=== PATIENT | female | born 1955 | race Caucasian/White ===

== ENCOUNTER → 2016-12-22 | Outpatient (CLI) | payer OTHER ==
[~2016-12-22] MED LIST: ALFA250T PO; ASPEC81 PO; ATV/1 PO; B-COTAB18 PO; CRG3125 PO; DIPH-437 PO; ESTR0.3T PO; FERR1TAB23 PO; LISI-729 PO; SERT100T PO; SUMA100T16 PO
== END | disposition home or self-care (01) ==
LOC: C.RDSM 10:11
PROVIDERS: ATTEND Orthopaedic Surgery Sports Medicine
DX: M79.671 Pain in right foot (principal)

== ENCOUNTER → 2017-03-25 | Day surgery (SDC) | payer OTHER ==
[2017-03-09 09:45] VITALS: Ht 167.6 cm; Wt 77.3 kg
[~2017-03-25] VITALS: Ht 167.6 cm; Wt 77.3 kg
[~2017-03-25] MED LIST changes: +ASPCH81X PO; -ASPEC81 PO; +ATROPINE SULFATE 0.1 MG/ML 5ML SYR IV PRN; +BUPIVACAINE 0.5 % 5 MG/1 ML MPF 30ML VIAL ONE; +CARV3.122 PO; +CEFAZOLIN 1000MG IV PUSH 5 ML IV SCH; +CHECK SCOPOLAMINE PATCH PLACEMENT SCH; -CRG3125 PO; +DEXAMETHASONE SOD INJ 4 MG/ML VIAL ONE; +EpHEDrine SULFATE INJ 50 MG/ML AMP IV PRN; +FENTANYL CITRATE INJ 50 MCG/1 ML 2 ML VIAL ONE; -FERR1TAB23 PO; +LACTATED RINGER'S 1000ML 1,000 ML IV SCH; +LIDOCAINE HCL 2% 2 ML VIAL (20MG/ML) ONE; +LIDOCAINE/EPINEPHRINE 1% 20 ML VIAL ONE; +MIDAZOLAM HCL 1 MG/ML 2ML VIAL ONE; +MoRPHine SULFATE 2 MG/ML CARP IV PRN; +MoRPHine SULFATE 4 MG/ML 1 ML CARP\\VIAL IV PRN; +NURSING VERBAL MED ORDER ONE; +ONDANSETRON INJ 2 MG/ML 2 ML VIAL IV PRN; +ONDANSETRON INJ 2 MG/ML 2 ML VIAL ONE; +OXYCODONE/ACETAMINOPHEN 5-325 TAB PO PRN; +PHENYLEPHRINE HCL INJ 10 MG/ML VIAL ONE; +PROPOFOL IV EMULSION 10 MG/ML 20 ML VIAL IV ONE; +SCOPOLAMINE 1.5 MG TDSY TD ONE; +SERT-234 PO; -SERT100T PO; +[UNRECOGNIZED DRUG - OTHER] PO
--- NOTE | 2017-03-25 07:00 | History & Physical Bridge - SC ---
H&P Re-Evaluation Bridge Note: I have examined the patient, reviewed the History & Physical and in the interval since the performance of the History & Physical I have noted the following changes of clinical significance: No changes noted
--- NOTE | 2017-03-25 09:54 | [facility] Post Operative Brief Note ---
Immediate Operative Summary Operative Date Mar 25, 2017. Pre-Operative Diagnosis Right Foot Bunion Post-Operative Diagnosis Same Procedure(s) Performed Right Foot Bunion Correction Surgeon Dr. Kaufman Distribution Operations Supervisor Surgeon(s) Antonio Gallardo, Fellow Estimated Blood Loss 15 ml Findings Consistent with Post-Op Diagnosis Fluids (cc crystalloids) 1500 Specimens None Drains None Anesthesia Type General Disposition Disposition: Recovery Room / PACU
--- NOTE | 2017-03-25 09:59 | Discharge Instructions-SurgCtr ---
Discharge Instructions Date of Service Mar 25, 2017. Visit Reason for Visit: Right Foot Bunion Discharge Discharge Diagnosis / Problem: Status post right bunion correction Discharge Goals Goal(s): Decrease discomfort, Improve function Activity Recommendations Activity Limitations: per Instructions/Follow-up section May Resume Sexual Activity: when tolerated Shower/Bathe: may shower/bathe in 3 days Driving or Machine Use: Not while on narcotics or in boot Weightbearing Status: Right weightbearing (as tolerated through heel) Anesthesia . Post Anesthesia Instructions: If you have had General Anesthesia or IV Sedation: * Do not drive today. * Resume driving when surgeon permits. * Do not make important decisions or sign legal documents today. * Call surgeon for: 1. Temperature elevations greater than 101 degrees F. 2. Uncontrollable pain. 3. Excessive bleeding. 4. Persistent nausea and vomiting. 5. Medication intolerance (nausea, vomiting or rash). * For nausea and vomiting use only clear liquids such as: tea, soda, bouillon until nausea subsides, then gradually increase diet as tolerated. * If you have any concerns or questions, call your surgeon's office. If physician is unavailable and it is an emergency, call 911 or go to the nearest emergency room. . Instructions / Follow-Up Instructions / Follow-Up Dr. Kaufman in 10-15 days. PT on 03/29/17. Diet Recommendations Home Diet: resume previous diet Procedures Procedures Performed: Right Foot Bunion Correction Pending Studies Studies pending at discharge: no Medical Emergencies . Who to Call and When: Medical Emergencies: If at any time you feel your situation is an emergency, please call 911 immediately. . Non-Emergent Contact Non-Emergency issues call your: Surgeon Call Non-Emergent contact if: temperature is above 101.5, your pain is not controlled, wound has increased drainage, wound has increased redness . . "Provider Documentation" section prepared by Howard Kaufman. .
--- NOTE | 2017-03-25 10:01 | [facility] Operative Report ---
Operative Report Operative Date Mar 25, 2017. Pre-Operative Diagnosis Right Foot Bunion Post-Operative Diagnosis Same Procedure(s) Performed Right Foot Bunion Correction Surgeon Dr. Kaufman Forms Examiner Surgeon(s) Antonio Gallardo, Fellow Estimated Blood Loss 15 ml Findings Right great toe bunion deformity with large medial eminence. Hallux valgus angle 34, intermetatarsal angle 12. Fluids (cc crystalloids) 1500 Specimens None Drains n/a Anesthesia Gen Complication(s) None Disposition Recovery Room / PACU (Stable) Implants Othosorb pin 1.3 mm (Biomet) Indications The patient is a 61 year old female with a painful and deformed right great toe , that has failed conservative treatment and the patient wishes to proceed with surgical correction of her bunion deformity. The patient understands the risks of surgery, which include but are not limited to: bleeding, infection, re- operation, damage to nerves and arteries, continued pain, mal-union, non-union, decreased level of activity, DVT, recurrence, and stiffness. The patient understands all of these instructions and explanations, all of their questions have been satisfactorily addressed. The patient has elected to proceed with surgery and the informed consent was signed. Description of Procedure The patient was taken to the Operating Room and placed in the supine position on the operating table. After general anesthetic was administered a multidisciplinary time-out was performed identifying my initials on the right foot as the correct and operative limb. Prior to the incision being made, 1 gram of intravenous Ancef was given. The right lower extremity was prepped and draped in the usual orthopaedic sterile fashion. The planned dorsal and medial incisions were marked. They along with an ankle block (superficial peroneal nerve, deep peroneal nerve, and posterior tibial nerves) were then injected with a total of 25 cc of a 50:50 mix of 1% Lidocaine plain and 0.5% Bupivacaine plain. An Esmarch was used to exsanguinate the limb and used as a tourniquet at the ankle. The medial incision was centered over the first metatarsal joint approximately 5 cm in length. The incision was carried down to the capsule and then skin flaps were created volarly and dorsally. A medial capsular flap was created exposing the medial eminence. Using a power saw the medial eminence was removed at an angle parallel to the medial border of the foot in the standard fashion. A 2 mm drill bit was used to archie the apex of the planned Chevron osteotomy which was created at approximately 60 angle with the power saw, small osteotome was used to complete the osteotomy lateral cortex. Using a towel clip on the main fragment, the distal part of the Chev[employer] osteotomy was displaced medially approximately 4 mm and impacted into the proximal fragment. Fluoroscopy was brought into ensure adequate removal of the medial eminence and proper alignment of the Chevron osteotomy. It was then pinned in place with 2 Orthosorb pins in the standard fashion. The remaining excess medial eminence after displacing the Chevron osteotomy was Co-planed with power saw and rasp. At this point, the lateral sesamoid still appear to be displaced and it was decided to continue with the lateral soft tissue portion of the procedure and the Dorsal incision was created with a skin knife. Care was taken to protect the deep peroneal nerve throughout. The abductor Hallucis was was identified and released off the proximal phalanx in the standard fashion. The deep transverse metatarsal ligament was also incised. The lateral capsule was released. Any adhesions on the lateral sesamoid were released with a freer. The wounds were copiously irrigated. The medial capsule was imbricated with 2-0 FiberWire and any excessive capsule was excised. Final fluro images were obtained, showing excellent alignment of the first metatarsal and removal of the medial eminence. The skin was closed with 4-0 Nylon using horizontal mattress stitch. The wound was dressed with Xeroform gauze, sterile gauze, supportive cleaning, ABD, sterile Webril, LAURE, and a post-op shoe was placed. The sponge and needle counts were correct. The patient was taken to the recovery room in stable condition. Post-op Instructions: Patient will be WBAT through the heel for 6 weeks. Pain medicine prescription was given pre-operatively to be taken as needed. The patient will follow up with me in 10-15 days. I attest to the content of the Intraoperative Record and any orders documented therein. Any exceptions are noted below.
[2017-03-25] MEDS: FENTANYL CITRATE INJ 50 MCG/1 ML 2 ML VIAL IV PRN ×2 (10:28→10:36)
--- NOTE | 2017-03-25 11:17 | Anesthesia Progress Nt - [facility] ---
Anesthesia Post Op Note Date & Time Mar 25, 2017 at 11:16 Vital Signs Pain Intensity: 4 Vital Signs Past 12 Hours Date Time Temp Pulse Resp B/P (MAP) Pulse Ox O2 Delivery O2 Flow Rate FiO2 03/25/17 11:05 113/77 03/25/17 11:03 36.8 76 19 113/77 95 Room Air 03/25/17 11:01 81 14 03/25/17 11:01 80 14 98/63 96 03/25/17 10:56 79 20 98 03/25/17 10:56 79 20 03/25/17 10:55 115/69 03/25/17 10:51 76 10 03/25/17 10:51 75 10 99 03/25/17 10:50 114/70 03/25/17 10:46 75 14 03/25/17 10:46 75 14 99 03/25/17 10:45 119/67 03/25/17 10:41 83 17 03/25/17 10:41 83 17 97 03/25/17 10:40 113/68 03/25/17 10:36 80 14 03/25/17 10:36 81 14 108/67 98 03/25/17 10:31 76 9 03/25/17 10:31 78 9 99 03/25/17 10:30 120/69 18 10:26 79 14 99 03/25/17 10:26 79 14 03/25/17 10:25 113/72 03/25/17 10:21 80 16 98 03/25/17 10:21 80 16 03/25/17 10:20 115/73 03/25/17 10:16 79 10 03/25/17 10:16 79 10 98 18 10:15 119/69 03/25/17 10:11 80 12 99 18 10:11 80 12 18 10:10 109/68 18 10:06 76 16 18 10:06 83 16 96 18 10:05 105/67 18 10:02 111/68 18 10:01 82 98 03/25/17 10:01 36.4 82 14 111/68 98 Mask 6 03/25/17 10:01 82 03/25/17 06:30 36.8 77 16 96/70 (79) 96 Room Air Notes Mental Status: alert / awake / arousable, participated in evaluation Pt Amnestic to Procedure: Yes Nausea / Vomiting: adequately controlled Pain: adequately controlled Airway Patency, RR, SpO2: stable & adequate BP & HR: stable & adequate Hydration State: stable & adequate Anesthetic Complications: no major complications apparent
[2017-03-25 12:07] VITALS: BP 116/66; PULSE 72; O2SAT 93
== END | disposition home or self-care (01) ==
LOC: X.SURG 06:09
PROVIDERS: ATTEND Orthopaedic Surgery Sports Medicine
DX: M21.611 Bunion of right foot (principal); F41.9 Anxiety disorder, unspecified; F31.9 Bipolar disorder, unspecified; Z85.41 Personal history of malignant neoplasm of cervix uteri; Z79.899 Other long term (current) drug therapy; Z79.82 Long term (current) use of aspirin; Z83.3 Family history of diabetes mellitus; Z80.0 Family history of malignant neoplasm of digestive organs; Z82.3 Family history of stroke

== ENCOUNTER → 2017-05-05 | Outpatient (CLI) | payer OTHER ==
[~2017-05-05] MED LIST changes: -ATROPINE SULFATE 0.1 MG/ML 5ML SYR IV PRN; -BUPIVACAINE 0.5 % 5 MG/1 ML MPF 30ML VIAL ONE; -CEFAZOLIN 1000MG IV PUSH 5 ML IV SCH; -CHECK SCOPOLAMINE PATCH PLACEMENT SCH; -DEXAMETHASONE SOD INJ 4 MG/ML VIAL ONE; -EpHEDrine SULFATE INJ 50 MG/ML AMP IV PRN; -FENTANYL CITRATE INJ 50 MCG/1 ML 2 ML VIAL ONE; -LACTATED RINGER'S 1000ML 1,000 ML IV SCH; -LIDOCAINE HCL 2% 2 ML VIAL (20MG/ML) ONE; -LIDOCAINE/EPINEPHRINE 1% 20 ML VIAL ONE; -MIDAZOLAM HCL 1 MG/ML 2ML VIAL ONE; -MoRPHine SULFATE 2 MG/ML CARP IV PRN; -MoRPHine SULFATE 4 MG/ML 1 ML CARP\\VIAL IV PRN; -NURSING VERBAL MED ORDER ONE; -ONDANSETRON INJ 2 MG/ML 2 ML VIAL IV PRN; -ONDANSETRON INJ 2 MG/ML 2 ML VIAL ONE; -OXYCODONE/ACETAMINOPHEN 5-325 TAB PO PRN; -PHENYLEPHRINE HCL INJ 10 MG/ML VIAL ONE; -PROPOFOL IV EMULSION 10 MG/ML 20 ML VIAL IV ONE; -SCOPOLAMINE 1.5 MG TDSY TD ONE
== END | disposition home or self-care (01) ==
LOC: C.RDSM 13:55
PROVIDERS: ATTEND Orthopaedic Surgery Sports Medicine
DX: Z09 Encounter for follow-up examination after completed treatment for conditions other than malignant neoplasm (principal)

== ENCOUNTER 2020-02-25 12:03 | Observation (INO) ==
[2020-02-25 12:53] LABS: Basophils # (auto) 0.04 K/uL (0-0.2); Basophils % (auto) 0.4 %; Eosinophils # (auto) 0.03 K/uL (0-0.5); Eosinophils % (auto) 0.3 %; Hematocrit (blood only) 36.8 % (37-47); Immature Granulocytes # (auto) 0.02 K/uL (0.00-0.02); Immature Granulocytes % (auto) 0.2 %; Lymphocytes # (auto) 0.82 K/uL (1.2-3.4); Lymphocytes % (auto) 7.2 %; Mean Corpuscular Hemoglobin 30.5 pg (25-34); Mean Corpuscular Hgb Conc 32.6 g/dL (32-36); Mean Corpuscular Volume 93.4 fL (80-100); Monocytes # (auto) 0.92 K/uL (0.11-0.59); Monocytes % (auto) 8.1 %; Neutrophils # (auto) 9.53 K/uL (1.4-6.5); Neutrophils % (auto) 83.8 %; Platelet Count 225 K/uL (130-400); RDW Coefficient of Variation 14.4 % (11.5-14.5); RDW Standard Deviation 49.4 fL (36.4-46.3); Red Blood Count 3.94 M/uL (4.2-5.4); White Blood Count 11.36 K/uL (4.8-10.8)
[2020-02-25 13:11] LABS: Alanine Aminotransferase 33 U/L (12-78); Albumin Level 3.5 gm/dl (3.4-5.0); Aspartate Aminotransferase 18 U/L (15-37); Blood Urea Nitrogen 14 mg/dl (7-18); Calcium 8.6 mg/dl (8.5-10.1); Carbon Dioxide 23 mmol/L (21-32); Chloride 111 mmol/L (98-107); Creatinine Clr Calc Pharmacy 59.8 ml/min; Est GFR (Non-African American) 54.4; Glucose 125 mg/dl (70-99); Potassium 4.1 mmol/L (3.5-5.1); Sodium 142 mmol/L (136-145)
[2020-02-25 13:15] LABS: Albumin Globulin Ratio 1.2 (0.9-2); Alkaline Phosphatase 77 U/L (45-117); Bilirubin,Total 0.7 mg/dl (0.2-1); Globulin 2.9 gm/dl (2.5-4.0); Total Protein 6.4 gm/dl (6.4-8.2); Troponin I < 0.015 ng/ml (0-0.045)
[2020-02-25 13:23] LABS: INR 1.1 (0.9-1.1); Partial Thromboplastin Ratio 0.9; Prothrombin Time 11.1 Seconds (9.0-12.0)
--- NOTE | 2020-02-25 14:32 | XRay Report ---
SINGLE VIEW CHEST CLINICAL HISTORY: Cough. Atypical chest pain. FINDINGS: An AP, portable, upright chest radiograph is compared to study dated 03/21/2014. The heart i s enlarged noting atherosclerotic calcification of the thoracic aorta. There is pulmonary vascular co ngestion. Perihilar opacities likely represent interstitial edema. Small pleural effusions are noted. No pneumothorax is seen. The skeletal structures are osteopenic. The bony thorax is grossly intact. IMPRESSION: 1. Cardiomegaly with evidence of congestive failure. 2. Perihilar airspace opacities likely represent pulmonary edema. Correlate clinically for evidence o f a superimposed infectious/inflammatory pneumonitis. 3. Small pleural effusions. ACT 112: Negative or not required by law. Electronically signed by: Lisandro Hopper M.D. 02/25/2020 2:31 PM
[2020-02-25 14:44] LABS: Creatine Kinase 70 U/L (26-192); Creatine Kinase MB < 1.0 ng/ml (0.5-3.6); NT Pro B Type Natriuretic Pept 22260 pg/ml (0-900); Troponin I 0.016 ng/ml (0-0.045)
[2020-02-25] MEDS ORDERED: METOPROLOL TARTRATE 25 MG TAB PO STA (15:03)
[2020-02-25] MEDS ORDERED: FUROSEMIDE 40 MG/4 ML VIAL IV STA (15:03)
[2020-02-25] MEDS ORDERED: FUROSEMIDE 40 MG/4 ML VIAL IV ONE (15:06)
--- NOTE | 2020-02-25 15:10 | Cardiology Consultation ---
Date of Consultation February 25, 2020 Assessment & Plan (1) Acute HFrEF (heart failure with reduced ejection fraction): (2) Frequent PVCs: A TSH has been added to the patient's ED labs. Furosemide 40 mg IV x 1 STAT ordered in ED (discussed with ED nurse). DC VALUATION MANAGER well, transition to metoprolol. Start metoprolol tartrate, while dose is being determined. First dose now. May need to consider antiarrhythmic treatment with amiodarone. Recommend blood work for cardiomyopathy including serum and urine protein electrophoresis, JORGE screen, iron studies. Hold lisinopril for now given cough, although I believe the cough is likely due to her pulmonary congestion/volume overload. Future considerations include getting her back on lisinopril tomorrow or perhaps transitioning her to losartan. Continue aspirin. History of Present Illness History of Present Illness Niurka Morris is a 64-year-old female seen in cardiology consultation per the request of Dr. Willem Salazar of the emergency department for the evaluation of chest tightness and shortness of breath. The patient's primary oil and gas well treatment operator is Dr. Lopez of our practice. The patient's cardiac history dates back to November, when she presented to her PCP and then to Dr Ng of [facility] cardiology with subjective complaints of palpitations. She was found to have cardiomyopathy with ejection fraction in the range of 25 to 35%. Medication therapy including carvedilol was initiated and on 05/07/2010 she underwent cardiac catheterization performed by Dr. Lees at [facility] revealing angiographically normal coronary arteries per the procedure report. A Holter monitor was performed on 06/04/2010 revealing frequent premature ventricular contractions, 17,000 and what I presume was a 24-hour interval. She responded well to medication, and echocardiogram performed on 05/05/2018 and revealed LVEF of 52%. In January, she noted onset of recurrence of her subjective palpitations. She was seen by Dr. Lopez and her carvedilol was increased to 6.25 mg twice daily with a subjective interval improvement in the palpitations. Echocardiogram performed 01/23/2020 at [facility] revealed new moderate left ventricular chamber dilatation, with severe left ventricular systolic dysfunction, LVEF less than 20% with moderate to severe mitral regurgitation (dilatation of the mitral valve annulus noted, moderate to severe tricuspid regurgitation, biatrial enlargement. Frequent PVCs were noted. The patient has noted progressive worsening exertional shortness of breath, cough, and weight gain. On 01/15/2019, she weighed 178 pounds in the cardiology clinic, most recently she weighed 196 pounds. This morning she awoke with severe "vice like "chest tightness" prompting her to present to the emergency department. At the time of my assessment, a COVID-19 screen was negative, troponin was negative x1, her proBNP was elevated, and chest x-ray findings are consistent with congestive heart failure and enlargement of the cardiac silhouette. She described that sitting straight up she felt the best that she could, and she states that with trying to lie supine she felt "suffocated". PAST MEDICAL HISTORY: Bipolar 1 disorder Major depressive disorder Stage III chronic kidney disease Migraine headaches Premature ventricular contractions, nonischemic idiopathic cardiomyopathy Patient underwent remote hysterectomy and has been on long-term Premarin hormone replacement therapy for more than 20 years, she has been weaning herself from this medication, and typically takes a 0.3 mg tablet once every 4 to 5 days PAST SURGICAL HISTORY: Angiographically normal coronary arteries, 2010 Remote hysterectomy age 22 Laparoscopic cholecystectomy, 2014 Fixation of left ankle fracture, residual left ankle edema FAMILY HISTORY: Mother alive at the age of 84, with history of coronary heart disease, CABG x2 in her 70s Father, 15 years ago at the age of 74, with history of diabetes and congestive heart failure, "scar tissue "of the heart, details otherwise not available Patient'S siblings have no known heart disease SOCIAL HISTORY: Non-smoker Allergies Allergy/AdvReac Type Severity Reaction Status Date / Time Sulfa (Sulfonamide Allergy Intermediate HIVES Verified 02/25/20 14:00 Antibiotics) Home Medications Medication Instructions Recorded Confirmed Type aspirin [Aspir-81] 81 mg PO DAILY 02/25/20 02/25/20 History carvedilol 6.25 mg PO BID 02/25/20 02/25/20 History conjugated estrogens [Premarin] 0.3 mg PO Q4D 02/25/20 02/25/20 History lisinopril 5 mg PO BID 02/25/20 02/25/20 History lorazepam 1 mg PO TID PRN 02/25/20 02/25/20 History ondansetron 4 mg PO Q6H 02/25/20 02/25/20 History sertraline 200 mg PO DAILY 02/25/20 02/25/20 History sumatriptan succinate 100 mg PO UD PRN 02/25/20 02/25/20 History valacyclovir 1,000 mg PO TID 02/25/20 02/25/20 History vitamin B complex [B Complex] 1 cap PO DAILY 02/25/20 02/25/20 History Patient History Social History Smoking Status: Never smoker Feels Safe at Home: Yes Physical Exam Physical Exam: Temp Pulse Resp BP Pulse Ox 36.8 C 101 H 23 115/84 96 02/25/20 12:11 02/25/20 15:10 02/25/20 15:10 02/25/20 14:17 02/25/20 14:17 Constitutional: Ill, uncomfortable Respiratory: Auscultation: + rales (Rales noted bilaterally at the bases) Cardiovascular: Rate/Rhythm: + tachycardic Heart Sounds: + murmur (1/6 systolic murmur) Gastrointestinal (Abdomen): normal bowel sounds, soft, nontender, no hepatosplenomegaly Musculoskeletal: no cyanosis or clubbing, extremities motor strength 5/5 Neurologic: PERRL, EOMI, accommodation nl, no face palsy, no dysarthria Results & Data ([facility]) Vital Signs (Past 12 Hours) Vital Signs Temp Pulse Resp BP Pulse Ox 02/25/20 14:17 88 27 H 115/84 96 02/25/20 12:11 36.8 C 105 H 18 113/51 L 97 Laboratory Results Cardiac Enzymes 02/25/20 02/25/20 Range/Units 12:40 14:15 AST 18 (15-37) U/L CK-MB (CK-2) < 1.0 (0.5-3.6) ng/ml Troponin I < 0.015 0.016 (0-0.045) ng/ml Coagulation 02/25/20 Range/Units 12:40 PT 11.1 (9.0-12.0) Seconds APTT 25.0 (21.0-31.0) Seconds CBC 02/25/20 Range/Units 12:40 WBC 11.36 H (4.8-10.8) K/uL RBC 3.94 L (4.2-5.4) M/uL Hgb 12.0 (12.0-16.0) g/dL Hct 36.8 L (37-47) % Plt Count 225 (130-400) K/uL Neut # (Auto) 9.53 H (1.4-6.5) K/uL Lymph # (Auto) 0.82 L (1.2-3.4) K/uL [place] # (Auto) 0.92 H (0.11-0.59) K/uL Eos # (Auto) 0.03 (0-0.5) K/uL Baso # (Auto) 0.04 (0-0.2) K/uL Comprehensive Metabolic Panel 02/25/20 Range/Units 12:40 Sodium 142 (136-145) mmol/L Potassium 4.1 (3.5-5.1) mmol/L Chloride 111 H (98-107) mmol/L Carbon Dioxide 23 (21-32) mmol/L BUN 14 (7-18) mg/dl Creatinine 1.09 (0.6-1.2) mg/dl Glucose 125 H (70-99) mg/dl Calcium 8.6 (8.5-10.1) mg/dl AST 18 (15-37) U/L ALT 33 (12-78) U/L Alkaline Phosphatase 77 (45-117) U/L Total Protein 6.4 (6.4-8.2) gm/dl Albumin 3.5 (3.4-5.0) gm/dl Intake and Output 02/25/20 02/25/20 02/25/20 06:59 14:59 22:59 Other: Weight 88 kg Patient Weight 02/26/20 06:59 Weight 88 kg Diagnostic Findings EKG performed 02/25/2020 1411 revealed sinus tachycardia 100 bpm, with frequent PVCs, nonspecific repolarization changes, analysis of ST segments is technically limited due to the frequent ventricular ectopy. Recent echocardiogram, January,, with severe left ventricular systolic dysfunction, LVEF less than 20%, moderate to severe MR, moderate to severe TR, as noted in HPI.
[2020-02-25] MEDS ORDERED: LORazepam 0.5 MG TAB PO STA (15:26)
--- NOTE | 2020-02-25 16:01 | History & Physical Report ---
Date of Service February 25, 2020 Assessment & Plan (1) Acute HFrEF (heart failure with reduced ejection fraction): (2) Idiopathic cardiomyopathy: (3) Frequent PVCs: This is a 64-year-old female who has known past medical history of idiopathic cardiomyopathy, PVCs, bipolar disorder, anxiety, hx of HSV who presents to ED secondary to constant chest tightness x1 day. In ED patient remained hemodynamically stable and saturating well on room air. Lab work notable for WBC 11.36k, H&H 12.0 and 36.8, platelet 225, BUN 14, creatinine 1.09, glucose 125, proBNP 22,260, SARS-CoV-2 negative. Chest x-ray revealed small pleural effusions, cardiomegaly with evidence of CHF. Admit to PCU Cardiology consulted and already saw pt in ED Lasix 40mg IV x 1 now start metoprolol tartrate - subsequent dosing per cardiology hold lisinopril SPEP, UPEP, iron studies, TSH pending Cardiology to discuss with EP daily weights, strict I and O heart healthy, low na diet, FR (4) Bipolar 1 disorder: (5) Anxiety: continue zoloft and prn lorazepam currently pt feels anxious - will give oral lorazepam x 1 (6) DVT prophylaxis: SQ Lovenox Disposition: admit to PCU Follow up: PCP Dr. Garcia upon discharge Pt was seen and examined in collaboration with Dr. Yanez, please see addendum History of Present Illness Chief Complaint: Constant chest tightness x1 day. Primary Care Provider: Gregory Garcia, DO This is a 64-year-old female who has known past medical history of idiopathic cardiomyopathy, PVCs, bipolar disorder, anxiety, hx of HSV who presents to ED secondary to constant chest tightness x1 day. Patient has a longstanding history of following with cardiology. Unfortunately she had a idiopathic cardiomyopathy in years past. On appropriate medication regimen her ejection fraction recovered. Due to complaints of frequent PVCs she was seen and evaluated on 01/22 and had echocardiogram. This unfortunately revealed severe hypokinesis globally LV dilatation, EF less than 20%, dilated mitral annulus, moderate TR, severe biatrial enlargement. She was scheduled tomorrow to see electrophysiology; however starting at approximately 9 PM last night she developed a constant chest tightness. Chest tightness was localized substernally, did not radiate, orthopnea, improved with sitting forward, never experienced in the past, associated with abdominal bloating and fullness, weight gain of approximately 20 pounds. Typically she runs 165 to 170 pounds but most recently was 193 pounds. She denies any recent fever, chills, lightheadedness, dizziness, shortness of breath at rest, nausea, vomiting, abdominal pain, change in bowel or urinary habits. She does complain of cough that is been ongoing for the past 2 months, is nonproductive, but feels has worsened in the past 2 weeks. In ED patient remained hemodynamically stable and saturating well on room air. Lab work notable for WBC 11.36k, H&H 12.0 and 36.8, platelet 225, BUN 14, creatinine 1.09, glucose 125, proBNP 22,260, SARS-CoV-2 negative. Chest x-ray revealed small pleural effusions, cardiomegaly with evidence of CHF. Allergies Allergy/AdvReac Type Severity Reaction Status Date / Time Sulfa (Sulfonamide Allergy Intermediate HIVES Verified 02/25/20 14:00 Antibiotics) Home Medications Medication Instructions Recorded Confirmed Type aspirin [Aspir-81] 81 mg PO DAILY 02/25/20 02/25/20 History carvedilol 6.25 mg PO BID 02/25/20 02/25/20 History conjugated estrogens [Premarin] 0.3 mg PO Q4D 02/25/20 02/25/20 History lisinopril 5 mg PO BID 02/25/20 02/25/20 History lorazepam 1 mg PO TID PRN 02/25/20 02/25/20 History ondansetron 4 mg PO Q6H 02/25/20 02/25/20 History sertraline 200 mg PO DAILY 02/25/20 02/25/20 History sumatriptan succinate 100 mg PO UD PRN 02/25/20 02/25/20 History valacyclovir 1,000 mg PO DAILY 02/25/20 02/25/20 History vitamin B complex [B Complex] 1 cap PO DAILY 02/25/20 02/25/20 History Past Med/Surg History Medical History (Updated 02/26/20 @ 15:45 by Kim Gerard DO) Anxiety Bipolar 1 disorder 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 Beliefs That Will Affect Care: None marital status: Single Current Living Situation: Alone Current Living Situation Comment: self and guinea pig current occupation: retired Other Information That Helps Us Care for You: No Feels Safe at Home: Yes Safety Concerns: Feels Safe At This Time Assistive Devices: Glasses Review of Systems Review of Systems: All systems reviewed & are unremarkable except as noted in HPI & below Physical Exam Physical Exam: Constitutional: WD/WN, acutely ill female, pale, vitals as above, NAD, sitting up in bed, pleasant, conversational dyspnea Head: Normocephalic, Atraumatic Eyes: PERRL, conjunctivae normal, anicteric sclerae ENMT: external ear and nose normal, oropharynx normal Neck: trachea midline, no thyromegaly normal visual inspection Respiratory: normal respiratory effort, lungs clear to auscultation, no wheeze, rales, rhonchi. Normal insp/exp effort, no accessory muscle use Cardiovascular: Regular rate, regular rhythm with frequent ectopy, 1/6 ZANE, no edema Vessels: no JVD or carotid bruit Chest: normal inspection of chest Abdomen: normal bowel sounds, soft, nontender, no hepatosplenomegaly Musculoskeletal: no cyanosis or clubbing, extremities motor strength 5/5 Skin: no rashes, warm and dry normal turgor Neurologic: PERRL, EOMI, accommodation nl, no face palsy, no dysarthria CN's II-XI intact bilaterally and moves all extremities Psychiatric: A+Ox3, euthymic affect Lymphatic: no cervical or axillary lymphadenopathy : deferred Results & Data Results & Data (MN) Vital Signs (Past 12 Hours) Vital Signs Temp Pulse Resp BP Pulse Ox 02/25/20 15:10 101 H 23 02/25/20 15:00 108 H 17 02/25/20 14:17 88 27 H 115/84 96 02/25/20 12:11 36.8 C 105 H 18 113/51 L 97 Laboratory Results Short CBC 02/25/20 02/25/20 Range/Units 12:40 12:40 WBC 11.36 H (4.8-10.8) K/uL Hgb 12.0 (12.0-16.0) g/dL Hct 36.8 L (37-47) % Plt Count 225 (130-400) K/uL Troponin I < 0.015 (0-0.045) ng/ml BMP 02/25/20 12:40 Sodium 142 Potassium 4.1 Chloride 111 H Carbon Dioxide 23 BUN 14 Creatinine 1.09 Glucose 125 H Calcium 8.6 Cardiac Enzymes 02/25/20 02/25/20 Range/Units 12:40 14:15 Total Creatine Kinase 70 (26-192) U/L CK-MB (CK-2) < 1.0 (0.5-3.6) ng/ml Troponin I < 0.015 0.016 (0-0.045) ng/ml Liver Function 02/25/20 Range/Units 12:40 Total Bilirubin 0.7 (0.2-1) mg/dl AST 18 (15-37) U/L ALT 33 (12-78) U/L Alkaline Phosphatase 77 (45-117) U/L Albumin 3.5 (3.4-5.0) gm/dl Diagnostic Findings CXR: IMPRESSION: 1. Cardiomegaly with evidence of congestive failure. 2. Perihilar airspace opacities likely represent pulmonary edema. Correlate clinically for evidence of a superimposed infectious/inflammatory pneumonitis. 3. Small pleural effusions. Echo 01/23/2020: Echocardiogram performed 01/23/[address] [facility] revealed new moderate left ventricular chamber dilatation, with severe left ventricular systolic dysfunction, LVEF less than 20% with moderate to severe mitral regurgitation (dilatation of the mitral valve annulus noted, moderate to severe tricuspid regurgitation, biatrial enlargement. Medications Administered Discontinued Medications Furosemide (Furosemide 40 Mg/4 Ml Vial) 40 mg IV NOW STA Stop: 02/25/20 15:04 Last Admin: 02/25/20 15:10 Dose: Not Given Documented by: [id number] Furosemide (Furosemide 40 Mg/4 Ml Vial) Confirm Administered Dose 40 mg IV .STK- MED ONE Stop: 02/25/20 15:07 Last Admin: 02/25/20 15:10 Dose: 40 mg Documented by: [id number] Lorazepam (Lorazepam 0.5 Mg Tab) 0.5 mg PO NOW STA Stop: 02/25/20 15:27 Last Admin: 02/25/20 15:35 Dose: 0.5 mg Documented by: [id number] Metoprolol Tartrate (Metoprolol Tartrate 25 Mg Tab) 25 mg PO NOW STA Stop: 02/25/20 15:04 Last Admin: 02/25/20 15:16 Dose: 25 mg Documented by: [id number] Code Status & VTE Plan Code Status Full Code VTE Prophylaxis Plan VTE Prophylaxis will be ordered: Yes Supervising Physician Co-Signing Physician Notes Pt was seen and examined. Agreed with Indira POLANCO exam, assessment and plan. 64-year-old female who has known past medical history of idiopathic cardiomyopathy, PVCs, bipolar disorder, anxiety, hx of HSV presented to the ER with chest tightness. Pt said that last night she developed a constant chest tightness that is non radiating, associated with orthopnea. She said that she gained about 20lbs . Denies any recent fever, chills, lightheadedness, dizziness, shortness of breath at rest, nausea, vomiting, abdominal pain, change in bowel or urinary habits. CXR on admission showed Cardiomegaly with evidence of congestive failure and perihilar airspace opacities likely represent pulmonary edema. On admission ProBNP 22,260 and troponin normal. EKG on admission showed no acute ischemic changes. Pt is currently in acute systolic decompensated HF. Received Lasix 40mg IV x 1 now. Cardiology Consult. Case discussed with Dr. Herzog that plan to continue diuresis. Continue monitor in telemonitor closely. MD Beau
[2020-02-25 16:33] LABS: Ferritin 20.7 ng/ml (8-388)
--- NOTE | 2020-02-25 16:45 | Emergency Department Note ---
History of Present Illness General Chief complaint: Chest Pain Stated complaint: tightness inb chest hx of cardiac issues Time Seen by Provider: 02/25/20 12:52 Source: patient, RN notes reviewed and old records reviewed Mode of arrival: ambulatory Limitations: no limitations History of Present Illness Provider complaint: Chest pain Onset (ago): month(s) 1 Location: chest Radiation: back Severity: moderate Pain Consistency: + intermittent and + now resolved Maximum Pain Intensity: 6 Current Pain Intensity: 0 Quality: + aching Relieved By: + immobilization and + rest Exacerbated By: + movement Associated symptoms: + denies other symptoms Treatments prior to arrival: none This is a 64-year-old female who presents emergency department complaining of chest pain that has been ongoing for at least the past month anytime the patient exerts herself. The patient is followed by [facility] cardiology. She last had a cardiac cath in 2010. She reports movement makes the pain worse however rest makes the pain better. She is currently pain-free. She describes the pain as an ache made worse with movement. Home Medications Medication Instructions Recorded Confirmed Type aspirin [Aspir-81] 81 mg PO DAILY 02/25/20 02/25/20 History carvedilol 6.25 mg PO BID 02/25/20 02/25/20 History conjugated estrogens [Premarin] 0.3 mg PO Q4D 02/25/20 02/25/20 History lisinopril 5 mg PO BID 02/25/20 02/25/20 History lorazepam 1 mg PO TID PRN 02/25/20 02/25/20 History ondansetron 4 mg PO Q6H 02/25/20 02/25/20 History sertraline 200 mg PO DAILY 02/25/20 02/25/20 History sumatriptan succinate 100 mg PO UD PRN 02/25/20 02/25/20 History valacyclovir 1,000 mg PO DAILY 02/25/20 02/25/20 History vitamin B complex [B Complex] 1 cap PO DAILY 02/25/20 02/25/20 History Allergies Allergy/AdvReac Type Severity Reaction Status Date / Time Sulfa (Sulfonamide Allergy Intermediate HIVES Verified 02/25/20 14:00 Antibiotics) Past Med/Surg History Medical History Anxiety Bipolar 1 disorder 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 If EF remains <35% despite optimal medical therapy then would recommend ICD Migraine Palpitations Surgical History History of ankle surgery History of bunionectomy History of cholecystectomy History of surgery on left wrist History of total abdominal hysterectomy and bilateral salpingo-oophorectomy Family History Father CHF (congestive heart failure) Other Diabetes Social History Smoking Status: Never smoker Hx Alcohol Use: No Hx Substance Use: No Preferred Language: Afghan Communication Ability: Effective Manager Spring Required: No Beliefs That Will Affect Care: None marital status: Single Current Living Situation: Alone Current Living Situation Comment: self and guinea pig current occupation: retired Other Information That Helps Us Care for You: No Feels Safe at Home: Yes Safety Concerns: Feels Safe At This Time Assistive Devices: Glasses Review of Systems A total of 10 systems reviewed and were otherwise negative Physical Exam Vital Signs Vital Signs - 24 hr 02/25/20 12:11 02/25/20 13:33 02/25/20 14:17 Temperature 36.8 C Temperature Source Oral Pulse Rate 105 H 88 Respiratory Rate 18 27 H Blood Pressure 113/51 L 115/84 Blood Pressure Mean 71 90 Pulse Oximetry 97 96 Oxygen Delivery Method Room Air Room Air Sepsis Recent Fever Within 48 Hours No Sepsis New/Unexplained Change in Mental Status N/A Sepsis Action Taken by Nursing No Action Required 02/25/20 15:00 02/25/20 15:10 02/25/20 15:22 Temperature Temperature Source Pulse Rate 108 H 101 H 111 H Respiratory Rate 17 23 24 Blood Pressure Blood Pressure Mean Pulse Oximetry Oxygen Delivery Method Sepsis Recent Fever Within 48 Hours Sepsis New/Unexplained Change in Mental Status Sepsis Action Taken by Nursing 02/25/20 15:30 02/25/20 15:40 02/25/20 15:50 Temperature Temperature Source Pulse Rate 97 H 83 96 H Respiratory Rate 17 18 22 Blood Pressure Blood Pressure Mean Pulse Oximetry Oxygen Delivery Method Sepsis Recent Fever Within 48 Hours Sepsis New/Unexplained Change in Mental Status Sepsis Action Taken by Nursing 02/25/20 15:58 Temperature Temperature Source Pulse Rate Respiratory Rate Blood Pressure Blood Pressure Mean Pulse Oximetry Oxygen Delivery Method Room Air Sepsis Recent Fever Within 48 Hours Sepsis New/Unexplained Change in Mental Status Sepsis Action Taken by Nursing VITAL SIGNS - Vital signs and nursing notes were reviewed. GENERAL - 64-year-old female appearing stated age who is in no acute distress. Communicates well with provider and answers questions appropriately. SKIN - Without rashes. HEAD - NC/AT. EYES - PERRL with EOMI bilaterally. Sclera anicteric. Palpebral conjunctiva pink and moist with no injection noted. EARS - No deformities of external structures noted on gross examination bilaterally. No pain elicited with palpation of the tragus bilaterally. External auditory canals without discharge or otorrhea. Tympanic membranes pearly srinivasan without retraction or bulging. No fluid or purulent material visualized behind the TM. Handle of malleus, umbo, cone of light, pars tensa/flaccid all easily vi sualized. NOSE - Midline and without cyanosis. No epistaxis or purulent drainage noted. Septum midline without deviation or septal hematoma noted. MOUTH/OROPHARYNX - Without perioral cyanosis. Buccal mucosa pink and moist and without leukoplakia. Tongue midline with equal elevation of palate bilaterally. No tonsillar hypertrophy, erythema, or exudates noted. dentition noted. NECK - Neck with FROM. Supple to palpation. lymphadenopathy noted. No nuchal rigidity. LUNGS - Chest wall symmetric without accessory muscle use, intercostals retractions, or central cyanosis. Normal vesicular breath sounds CTA B/L. No wheezes, rales, or rhonchi appreciated. CARDIAC - RRR with S1/S2. No murmur, rubs, or gallops appreciated. ABDOMEN - Abdominal contour without pulsations or visible masses. BS normoactive all four quadrants. No tenderness, palpable masses, hepatosplenomegaly, or ascites noted. EXTREMITIES - No clubbing or peripheral cyanosis. No pretibial edema present. +3/5 radial, posterior tibial, and dorsalis pedis pulses palpated throughout. +5/5 strength noted in UE/LE bilaterally. NEUROLOGIC - Cranial nerves II through XII grossly intact. Sensory intact to light touch throughout. Patellar reflexes +2/4. PSYCH - A&Ox3 and cooperates fully with examiner. Pt is very pleasant and interacts well with examiner. Course Administered Medications Amiodarone HCl (Amiodarone 200 Mg Tab) 200 mg PO BIDM [facility] Stop: 03/27/20 16:59 Last Admin: 02/26/20 17:38 Dose: 200 mg Documented by: [id number] Aspirin (Aspirin 81 Mg Ectab) 81 mg PO DAILY SIL[facility] Stop: 03/27/20 08:59 Last Admin: 02/26/20 09:17 Dose: 81 mg Documented by: [id number] Enoxaparin Sodium (Enoxaparin Inj 40 Mg/0.4 Ml Syr) 40 mg SQ Q24H [facility] Stop: 03/26/20 21:59 Last Admin: 02/25/20 21:13 Dose: 40 mg Documented by: [id number] Estrogens Conjugated (Estrogens, Conjugated 0.3 Mg Tab) 0.3 mg PO Q4D@0900 [facility] Stop: 03/27/20 08:59 Last Admin: 02/26/20 09:17 Dose: 0.3 mg Documented by: [id number] Sertraline HCl (Sertraline Hcl 100 Mg Tablet) 200 mg PO DAILY [facility]AS Stop: 03/27/20 08:59 Last Admin: 02/26/20 09:16 Dose: 200 mg Documented by: [id number] Spironolactone (Spironolactone 12.5 Mg Tab) 12.5 mg PO DAILY SILAS Stop: 03/27/20 09:29 Last Admin: 02/26/20 10:03 Dose: 12.5 mg Documented by: [id number] Valacyclovir HCl (Valacyclovir Hcl 500 Mg Tablet) 1,000 mg PO DAILY SILAS Stop: 03/27/20 08:59 Last Admin: 02/26/20 09:16 Dose: 1,000 mg Documented by: [id number] Vitamin B Complex (Vitamin B Complex Tab) 1 tab PO DAILY SILAS Stop: 03/27/20 08:59 Last Admin: 02/26/20 09:16 Dose: 1 tab Documented by: [id number] Discontinued Medications Amiodarone HCl (Amiodarone 200 Mg Tab) 200 mg PO NOW ONE Stop: 02/26/20 12:31 Last Admin: 02/26/20 14:08 Dose: 200 mg Documented by: [id number] Furosemide (Furosemide 40 Mg/4 Ml Vial) 40 mg IV NOW STA Stop: 02/25/20 15:04 Last Admin: 02/25/20 15:10 Dose: Not Given Documented by: [id number] Furosemide (Furosemide 40 Mg/4 Ml Vial) Confirm Administered Dose 40 mg IV .STK- MED ONE Stop: 02/25/20 15:07 Last Admin: 02/25/20 15:10 Dose: 40 mg Documented by: [id number] Furosemide 40 mg/ Syringe 4 mls @ 4 mls/min IV ONE ONE Stop: 02/26/20 09:17 Last Admin: 02/26/20 10:03 Dose: 4 mls/min Documented by: [id number] Lorazepam (Lorazepam 0.5 Mg Tab) 0.5 mg PO NOW STA Stop: 02/25/20 15:27 Last Admin: 02/25/20 15:35 Dose: 0.5 mg Documented by: [id number] Metoprolol Tartrate (Metoprolol Tartrate 25 Mg Tab) 25 mg PO NOW STA Stop: 02/25/20 15:04 Last Admin: 02/25/20 15:16 Dose: 25 mg Documented by: [id number] Potassium Chloride (Potassium Chloride Crtab 20 Meq Tabcr) 20 meq PO NOW STA Stop: 02/25/20 17:32 Last Admin: 02/25/20 18:18 Dose: 20 meq Documented by: [id number] Potassium Chloride (Potassium Chloride Crtab 20 Meq Tabcr) 40 meq PO NOW STA Stop: 02/26/20 09:18 Last Admin: 02/26/20 10:03 Dose: 40 meq Documented by: [id number] Medical Decision Making Differential Diagnosis Cardiac ischemia, aortic dissection, pulmonary embolism, pneumothorax, pneumonia, pericarditis, myocarditis, esophageal rupture, GERD, cholecystitis, pancreatitis, musculoskeletal, as well as other pathologies. Medical Records Attestation: I reviewed the patient's medical records. Home Medications Current Medication List: was personally reviewed by me Laboratory Data Attestation: I reviewed the patient's lab results. Result diagrams: 02/26/20 07:07 02/26/20 07:07 Lab Results 02/25/20 02/25/20 02/25/20 Range/Units 12:40 12:40 12:40 WBC 11.36 H (4.8-10.8) K/uL RBC 3.94 L (4.2-5.4) M/uL Hgb 12.0 (12.0-16.0) g/dL Hct 36.8 L (37-47) % MCV 93.4 (80-100) fL MCH 30.5 (25-34) pg MCHC 32.6 (32-36) g/dL RDW Std Deviation 49.4 H (36.4-46.3) fL RDW Coeff of Rei 14.4 (11.5-14.5) % Plt Count 225 (130-400) K/uL MPV 12.0 H (7.4-10.4) fL Immature Gran % (Auto) 0.2 % Neut % (Auto) 83.8 % Lymph % (Auto) 7.2 % Talbot % (Auto) 8.1 % Eos % (Auto) 0.3 % Baso % (Auto) 0.4 % Neut # (Auto) 9.53 H (1.4-6.5) K/uL Lymph # (Auto) 0.82 L (1.2-3.4) K/uL [place]bot # (Auto) 0.92 H (0.11-0.59) K/uL Eos # (Auto) 0.03 (0-0.5) K/uL Baso # (Auto) 0.04 (0-0.2) K/uL Immature Gran # (Auto) 0.02 (0.00-0.02) K/uL PT 11.1 (9.0-12.0) Seconds INR 1.1 (0.9-1.1) APTT 25.0 (21.0-31.0) Seconds PTT Ratio 0.9 Sodium 142 (136-145) mmol/L Potassium 4.1 (3.5-5.1) mmol/L Chloride 111 H (98-107) mmol/L Carbon Dioxide 23 (21-32) mmol/L Anion Gap 8.0 (3-11) BUN 14 (7-18) mg/dl Creatinine 1.09 (0.6-1.2) mg/dl Est Cr Clr Drug Dosing 59.8 ml/min Est GFR ( Amer) 63.0 Est GFR (Non-Af Amer) 54.4 BUN/Creatinine Ratio 13.0 (10-20) Glucose 125 H (70-99) mg/dl Calcium 8.6 (8.5-10.1) mg/dl Iron (35-150) mcg/dl TIBC (250-450) mcg/dl Ferritin (8-388) ng/ml Total Bilirubin 0.7 (0.2-1) mg/dl AST 18 (15-37) U/L ALT 33 (12-78) U/L Alkaline Phosphatase 77 (45-117) U/L Total Creatine Kinase (26-192) U/L CK-MB (CK-2) (0.5-3.6) ng/ml CK/CKMB % Calc Troponin I < 0.015 (0-0.045) ng/ml NT-Pro-B Natriuret Pep (0-900) pg/ml Total Protein 6.4 (6.4-8.2) gm/dl Albumin 3.5 (3.4-5.0) gm/dl Globulin 2.9 (2.5-4.0) gm/dl Albumin/Globulin Ratio 1.2 (0.9-2) TSH (0.300-4.500) uIu/ml COVID-19 Eval Order SARS-CoV-2, RNA, NAAT (NEGATIVE) 02/25/20 02/25/20 02/25/20 Range/Units 13:25 13:25 14:15 WBC (4.8-10.8) K/uL RBC (4.2-5.4) M/uL Hgb (12.0-16.0) g/dL Hct (37-47) % MCV (80-100) fL MCH (25-34) pg MCHC (32-36) g/dL RDW Std Deviation (36.4-46.3) fL RDW Coeff of Rei (11.5-14.5) % Plt Count (130-400) K/uL MPV (7.4-10.4) fL Immature Gran % (Auto) % Neut % (Auto) % Lymph % (Auto) % Talbot % (Auto) % Eos % (Auto) % Baso % (Auto) % Neut # (Auto) (1.4-6.5) K/uL Lymph # (Auto) (1.2-3.4) K/uL [place]bot # (Auto) (0.11-0.59) K/uL Eos # (Auto) (0-0.5) K/uL Baso # (Auto) (0-0.2) K/uL Immature Gran # (Auto) (0.00-0.02) K/uL PT (9.0-12.0) Seconds INR (0.9-1.1) APTT (21.0-31.0) Seconds PTT Ratio Sodium (136-145) mmol/L Potassium (3.5-5.1) mmol/L Chloride (98-107) mmol/L Carbon Dioxide (21-32) mmol/L Anion Gap (3-11) BUN (7-18) mg/dl Creatinine (0.6-1.2) mg/dl Est Cr Clr Drug Dosing ml/min Est GFR ( Amer) Est GFR (Non-Af Amer) BUN/Creatinine Ratio (10-20) Glucose (70-99) mg/dl Calcium (8.5-10.1) mg/dl Iron (35-150) mcg/dl TIBC (250-450) mcg/dl Ferritin (8-388) ng/ml Total Bilirubin (0.2-1) mg/dl AST (15-37) U/L ALT (12-78) U/L Alkaline Phosphatase (45-117) U/L Total Creatine Kinase 70 (26-192) U/L CK-MB (CK-2) < 1.0 (0.5-3.6) ng/ml CK/CKMB % Calc TNP Troponin I 0.016 (0-0.045) ng/ml NT-Pro-B Natriuret Pep 40584 H (0-900) pg/ml Total Protein (6.4-8.2) gm/dl Albumin (3.4-5.0) gm/dl Globulin (2.5-4.0) gm/dl Albumin/Globulin Ratio (0.9-2) TSH (0.300-4.500) uIu/ml COVID-19 [facility] SARS-[facility]-2, RNA, NAAT NEGATIVE (NEGATIVE) 02/25/20 02/25/20 Range/Units 14:15 14:15 WBC (4.8-10.8) K/uL RBC (4.2-5.4) M/uL Hgb (12.0-16.0) g/dL Hct (37-47) % MCV (80-100) fL MCH (25-34) pg MCHC (32-36) g/dL RDW Std Deviation (36.4-46.3) fL RDW Coeff of Rei (11.5-14.5) % Plt Count (130-400) K/uL MPV (7.4-10.4) fL Immature Gran % (Auto) % Neut % (Auto) % Lymph % (Auto) % [place]bot % (Auto) % Eos % (Auto) % Baso % (Auto) % Neut # (Auto) (1.4-6.5) K/uL Lymph # (Auto) (1.2-3.4) K/uL [place] # (Auto) (0.11-0.59) K/uL Eos # (Auto) (0-0.5) K/uL Baso # (Auto) (0-0.2) K/uL Immature Gran # (Auto) (0.00-0.02) K/uL PT (9.0-12.0) Seconds INR (0.9-1.1) APTT (21.0-31.0) Seconds PTT Ratio Sodium (136-145) mmol/L Potassium (3.5-5.1) mmol/L Chloride (98-107) mmol/L Carbon Dioxide (21-32) mmol/L Anion Gap (3-11) BUN (7-18) mg/dl Creatinine (0.6-1.2) mg/dl Est Cr Clr Drug Dosing ml/min Est GFR ( Amer) Est GFR (Non-Af Amer) BUN/Creatinine Ratio (10-20) Glucose (70-99) mg/dl Calcium (8.5-10.1) mg/dl Iron 43 (35-150) mcg/dl TIBC 346 (250-450) mcg/dl Ferritin 20.7 (8-388) ng/ml Total Bilirubin (0.2-1) mg/dl AST (15-37) U/L ALT (12-78) U/L Alkaline Phosphatase (45-117) U/L Total Creatine Kinase (26-192) U/L CK-MB (CK-2) (0.5-3.6) ng/ml CK/CKMB % Calc Troponin I (0-0.045) ng/ml NT-Pro-B Natriuret Pep (0-900) pg/ml Total Protein (6.4-8.2) gm/dl Albumin (3.4-5.0) gm/dl Globulin (2.5-4.0) gm/dl Albumin/Globulin Ratio (0.9-2) TSH 1.000 (0.300-4.500) uIu/ml COVID-19 Eval Order SARS-CoV-2, RNA, NAAT (NEGATIVE) Imaging Data Radiologist's Impression: [facility] [place], [phone] XRay Report Patient: JEFFY HENNESSY ANNAdmit Date: 02/25/20MR#: [id number]: [address]Acct ID:[id number]: Date: [address] Zip: [place] [address]Wax: 64Location: EDSex: FRoom/Bed:Att Phy:Diagnosis: tightness inb chest hx of cardiac issuesPri Phy: Gregory Garcia, DOService Date: 02/25/20Fam Phy:Interpreting Phy: Lisandro Hopper MDAit Phy: Ordering Phy: Willem Salazar MD cc: ~ SINGLE VIEW CHEST CLINICAL HISTORY: Cough. Atypical chest pain. FINDINGS: An AP, portable, upright chest radiograph is compared to study dated 03/21/2014. The heart is enlarged noting atherosclerotic calcification of the thoracic aorta. There is pulmonary vascular congestion. Perihilar opacities likely represent interstitial edema. Small pleural effusions are noted. No pneumothorax is seen. The skeletal structures are osteopenic. The bony thorax is grossly intact. IMPRESSION: 1. Cardiomegaly with evidence of congestive failure. 2. Perihilar airspace opacities likely represent pulmonary edema. Correlate clinically for evidence of a superimposed infectious/inflammatory pneumonitis. 3. Small pleural effusions. ACT 112: Negative or not required by law. Electronically signed by: Lisandro Hopper M.D. 02/25/2020 2:31 PM Dictated: 02/25/201429Transcribed: 02/25/201429 ECG Data Attestation: I personally reviewed and interpreted this ECG as follows: Indication: + chest pain Rate (beats per minute): 105 Rhythm: + sinus tachycardia ECG Intervals/blocks: + Normal QT-c (444) ECG [place]: + Normal ECG ST segments: no ST depression and no ST elevation ECG Findings: + PVCs Comparison ECG Date: from (03/21/2014) Change: the following changes noted (PVCs now present ) Additional Comments: Repeat EKG at 1411 shows an undetermined rhythm no ST elevation or depression QTC is 441 ventricular rate is 100 undetermined rhythm has replaced normal sinus rhythm. MDM Narrative Patient was seen and evaluated as above in room C1. Review was performed of nursing notes and vital signs. I did review pertinent previous visits and patient history. After obtaining a thorough history and physical examination the above work up was performed. This 64-year-old female with a complicated medical history of cardiomyopathy who reports to the emergency department complaining of chest pain the worsens with exertion. I did discuss her case with the on-call instrument tester who was kind enough to come and see the patient. He is requesting the patient be admitted to the hospital. Patient's hemoglobin is stable. An order was placed for continuous cardiac monitoring. The monitor shows a rate of 86 with Normal SInus rhythm. The patient was evaluated during a period of high volume and high acuity while the hospital was at overcapacity during the global COVID-19 pandemic, and that diagnosis was suspected/considered upon their initial presentation. Their evaluation, treatment and testing was consistent with current guidelines for patients who present with complaints or symptoms that may be related to COVID- 19. Impression & Plan Chest pain, Idiopathic cardiomyopathy Discharge Plan Visit Data Chief Complaint: Chest Pain Stated Complaint: tightness inb chest hx of cardiac issues ED Provider: Willem Salazar Discharge Problem: Chest pain, Idiopathic cardiomyopathy Patient Disposition: Admitted As Inpatient Discharge Instructions Interventions: ED Discharge Assessment Last Done: 02/25/20 15:58 Discharge Problem: Chest pain Qualifiers: Chest pain type: unspecified Qualified Code(s): R07.9 - Chest pain, unspecified
[2020-02-25] MEDS ORDERED: ACETAMINOPHEN 325 MG TAB PO PRN (17:03)
[2020-02-25] MEDS ORDERED: MAGNESIUM HYDROXIDE SUSP 30 ML UDC PO PRN (17:03)
[2020-02-25] MEDS ORDERED: POLYETHYLENE (MIRALAX) 17 GM PACK PO PRN (17:03)
[2020-02-25] MEDS ORDERED: ONDANSETRON INJ 2 MG/ML 2 ML VIAL IV PRN (17:03)
[2020-02-25] MEDS ORDERED: ALUMINUM/MAGNESIUM SUSP 30 ML UDC PO PRN (17:03)
[2020-02-25] MEDS ORDERED: LORazepam 1 MG TAB PO PRN (17:09)
[2020-02-25] MEDS ORDERED: PNEUMOCOCCAL ADMINISTRATION CHARGE ONE (17:30)
[2020-02-25] MEDS ORDERED: PNEUMOCOCCAL POLYSACCHARIDES 25 MCG/0.5 ML VIAL/SYR IM ONE (17:30)
[2020-02-25] MEDS ORDERED: POTASSIUM CHLORIDE CRTAB 20 MEQ TABCR PO STA (17:31)
--- NOTE | 2020-02-25 17:32 | Communication Note ---
Date of Service: February 25, 2020 Patient reassessed in PCU. Post furosemide 40 mg IV, she feels much improved. Appears comfortable.
[2020-02-25] MEDS: ENOXAPARIN INJ 40 MG/0.4 ML SYR SQ SCH (21:13)
--- NOTE | 2020-02-26 07:18 | XRay Report ---
XR chest 1V portable HISTORY: 64 years-old Female CHF acute shortness of breath with reported congestive heart failure COMPARISON: Chest radiograph 02/25/2020 TECHNIQUE: Portable AP view of the chest FINDINGS: Cardiac silhouette is moderately enlarged. Calcified plaque of the thoracic aorta. Pulmonary vascular congestion is noted with mildly decreased pulmonary edema. Trace pleural effusions. Mild persistent left greater than right bibasilar opacities. No pneumothorax. Bones appear grossly intact. IMPRESSION: 1. Cardiomegaly with mildly improved pulmonary edema. 2. Trace pleural effusions. ACT 112: Negative or not required by law. The above report was generated using voice recognition software. It may contain grammatical, syntax o r spelling errors. Electronically signed by: Candelario Morales M.D. 02/26/2020 7:17 AM
[2020-02-26 08:12] LABS: Hematocrit (blood only) 35.6 % (37-47); Hemoglobin 11.6 g/dL (12.0-16.0); Mean Corpuscular Hemoglobin 30.5 pg (25-34); Mean Corpuscular Hgb Conc 32.6 g/dL (32-36); Mean Corpuscular Volume 93.7 fL (80-100); Mean Platelet Volume 12.9 fL (7.4-10.4); Platelet Count 209 K/uL (130-400); RDW Coefficient of Variation 14.4 % (11.5-14.5); RDW Standard Deviation 49.5 fL (36.4-46.3); White Blood Count 9.65 K/uL (4.8-10.8)
--- NOTE | 2020-02-26 08:33 | Hospitalist Progress Note ---
Date of Service February 26, 2020 Assessment & Plan (1) Acute HFrEF (heart failure with reduced ejection fraction): (2) Idiopathic cardiomyopathy: (3) Frequent PVCs: This is a 64-year-old female who has known past medical history of idiopathic cardiomyopathy, PVCs, bipolar disorder, anxiety, hx of HSV who presents to ED secondary to constant chest tightness x1 day. In ED patient remained hemodynamically stable and saturating well on room air. Lab work notable for WBC 11.36k, H&H 12.0 and 36.8, platelet 225, BUN 14, creatinine 1.09, glucose 125, proBNP 22,260, SARS-CoV-2 negative. Chest x-ray revealed small pleural effusions, cardiomegaly with evidence of CHF. Admit to PCU Cardiology consulted and already saw pt in ED Lasix 40mg IV on admission start metoprolol tartrate - subsequent dosing per cardiology hold lisinopril SPEP, UPEP, iron studies, TSH pending Cardiology to discuss with EP - pt seen by Dr. Herzog and Dr. Gerard daily weights, strict I and O heart healthy, low na diet, FR (4) Bipolar 1 disorder: (5) Anxiety: continue zoloft and prn lorazepam currently pt feels anxious - will give oral lorazepam x 1 (6) DVT prophylaxis: SQ Lovenox Disposition: admit to PCU Follow up: PCP Dr. Garcia upon discharge Admission and Anticipated Discharge Date Admission Date: February 25, 2020 Subjective Patient seen in follow-up of shortness of breath d/t decompensated HF. Admitted yesterday and received IV lasix on admission. She feels much improved , breathing comfortably on RA and able to lay flat. Denies any chest tightness. Telemetry reviewed - sinus rhythm with frequent PVCs. Cardiology and EP consulted. Review of Systems Review of Systems: All systems reviewed & are unremarkable except as noted in HPI & below Constitutional: no fever and no chills Respiratory: + dyspnea (much improved) Cardiovascular: + chest pain (much improved) and + palpitations Gastrointestinal: + nausea; no abdominal pain and no vomiting Physical Exam Physical Exam: Constitutional: WD/WN, sitting up in bed in NAD,pleasant, breathing comfortably on RA Head: Normocephalic, Atraumatic Eyes: PERRL, EOMI, conjunctivae normal, anicteric sclerae ENMT: external ear and nose normal, oropharynx normal Neck: trachea midline, no thyromegaly normal visual inspection Respiratory: normal respiratory effort, lungs clear to auscultation, no wheeze, rales, rhonchi. Normal insp/exp effort, no accessory muscle use Cardiovascular: Regular rate, regular rhythm with frequent ectopy, 1/6 ZANE, no edema Vessels: no JVD or carotid bruit Chest: normal inspection of chest Abdomen: normal bowel sounds, soft, nontender Musculoskeletal: no cyanosis or clubbing, extremities motor strength 5/5 Skin: no rashes, warm and dry normal turgor Neurologic: PERRL, EOMI, no face palsy, no dysarthria CN's II-XI intact bilaterally and moves all extremities Psychiatric: A+Ox3, euthymic affect Results & Data Results & Data ([facility]) Vital Signs (Past 12 Hours) Vital Signs Temp Pulse Resp BP Pulse Ox 02/26/20 08:29 37.2 C 74 96 H 100/64 96 02/26/20 03:13 37.2 C 80 17 99/69 L 91 02/26/20 00:01 37.2 C 88 17 112/62 91 Laboratory Results 02/26/20 02/26/20 02/26/20 Range/Units 07:07 07:07 07:07 WBC 9.65 (4.8-10.8) K/uL RBC 3.80 L (4.2-5.4) M/uL Hgb 11.6 L (12.0-16.0) g/dL Hct 35.6 L (37-47) % MCV 93.7 (80-100) fL MCH 30.5 (25-34) pg MCHC 32.6 (32-36) g/dL RDW Std Deviation 49.5 H (36.4-46.3) fL RDW Coeff of Rei 14.4 (11.5-14.5) % Plt Count 209 (130-400) K/uL MPV 12.9 H (7.4-10.4) fL Immature Gran % (Auto) % Neut % (Auto) % Lymph % (Auto) % [place] % (Auto) % Eos % (Auto) % Baso % (Auto) % Neut # (Auto) (1.4-6.5) K/uL Lymph # (Auto) (1.2-3.4) K/uL [place] # (Auto) (0.11-0.59) K/uL Eos # (Auto) (0-0.5) K/uL Baso # (Auto) (0-0.2) K/uL Immature Gran # (Auto) (0.00-0.02) K/uL PT (9.0-12.0) Seconds INR (0.9-1.1) APTT (21.0-31.0) Seconds PTT Ratio Sodium Pending (136-145) mmol/L Potassium Pending (3.5-5.1) mmol/L Chloride Pending (98-107) mmol/L Carbon Dioxide Pending (21-32) mmol/L Anion Gap Pending (3-11) BUN Pending (7-18) mg/dl Creatinine Pending (0.6-1.2) mg/dl Est Cr Clr Drug Dosing Pending ml/min Est GFR ( Amer) Pending Est GFR (Non-Af Amer) Pending BUN/Creatinine Ratio Pending (10-20) Glucose Pending (70-99) mg/dl Calcium Pending (8.5-10.1) mg/dl Magnesium Pending Iron (35-150) mcg/dl TIBC (250-450) mcg/dl Ferritin (8-388) ng/ml Total Bilirubin Pending (0.2-1) mg/dl AST Pending (15-37) U/L ALT Pending (12-78) U/L Alkaline Phosphatase Pending (45-117) U/L Total Creatine Kinase (26-192) U/L CK-MB (CK-2) (0.5-3.6) ng/ml CK/CKMB % Calc Troponin I (0-0.045) ng/ml NT-Pro-B Natriuret Pep (0-900) pg/ml Total Protein Pending (6.4-8.2) gm/dl Albumin Pending (3.4-5.0) gm/dl Globulin Pending (2.5-4.0) gm/dl Albumin/Globulin Ratio Pending (0.9-2) TSH (0.300-4.500) uIu/ml U Random Total Protein Ur Creatinine mg/dL Protein/Creatinin Ratio Urine Albumin (%) U Ydzaa-1-Izkzyoog (%) U Kerfe-9-Peezvbpi (%) U Beta Globulin (%) U Gamma Globulin (%) U Abnormal Prot Band 1 U Abnormal Prot Band 2 U Abnormal Prot Band 3 Urine PEP Interpret Serum Immunofixation Pending JORGE Screen COVID-19 Eval Order SARS-CoV-2, RNA, NAAT (NEGATIVE) 02/26/20 02/25/20 02/25/20 Range/Units 05:30 14:15 14:15 WBC (4.8-10.8) K/uL RBC (4.2-5.4) M/uL Hgb (12.0-16.0) g/dL Hct (37-47) % MCV (80-100) fL MCH (25-34) pg MCHC (32-36) g/dL RDW Std Deviation (36.4-46.3) fL RDW Coeff of Rei (11.5-14.5) % Plt Count (130-400) K/uL MPV (7.4-10.4) fL Immature Gran % (Auto) % Neut % (Auto) % Lymph % (Auto) % [place] % (Auto) % Eos % (Auto) % Baso % (Auto) % Neut # (Auto) (1.4-6.5) K/uL Lymph # (Auto) (1.2-3.4) K/uL [place] # (Auto) (0.11-0.59) K/uL Eos # (Auto) (0-0.5) K/uL Baso # (Auto) (0-0.2) K/uL Immature Gran # (Auto) (0.00-0.02) K/uL PT (9.0-12.0) Seconds INR (0.9-1.1) APTT (21.0-31.0) Seconds PTT Ratio Sodium (136-145) mmol/L Potassium (3.5-5.1) mmol/L Chloride (98-107) mmol/L Carbon Dioxide (21-32) mmol/L Anion Gap (3-11) BUN (7-18) mg/dl Creatinine (0.6-1.2) mg/dl Est Cr Clr Drug Dosing ml/min Est GFR ( Amer) Est GFR (Non-Af Amer) BUN/Creatinine Ratio (10-20) Glucose (70-99) mg/dl Calcium (8.5-10.1) mg/dl Magnesium Iron 43 (35-150) mcg/dl TIBC 346 (250-450) mcg/dl Ferritin 20.7 (8-388) ng/ml Total Bilirubin (0.2-1) mg/dl AST (15-37) U/L ALT (12-78) U/L Alkaline Phosphatase (45-117) U/L Total Creatine Kinase (26-192) U/L CK-MB (CK-2) (0.5-3.6) ng/ml CK/CKMB % Calc Troponin I (0-0.045) ng/ml NT-Pro-B Natriuret Pep (0-900) pg/ml Total Protein (6.4-8.2) gm/dl Albumin (3.4-5.0) gm/dl Globulin (2.5-4.0) gm/dl Albumin/Globulin Ratio (0.9-2) TSH 1.000 (0.300-4.500) uIu/ml U Random Total Protein Pending Ur Creatinine mg/dL Pending Protein/Creatinin Ratio Pending Urine Albumin (%) Pending U Wykls-3-Daphndfa (%) Pending U Izsft-5-Lajmlhpu (%) Pending U Beta Globulin (%) Pending U Gamma Globulin (%) Pending U Abnormal Prot Band 1 Pending U Abnormal Prot Band 2 Pending U Abnormal Prot Band 3 Pending Urine PEP Interpret Pending Serum Immunofixation JORGE Screen COVID-19 Eval Order SARS-CoV-2, RNA, NAAT (NEGATIVE) 02/25/20 02/25/20 02/25/20 Range/Units 14:15 13:25 13:25 WBC (4.8-10.8) K/uL RBC (4.2-5.4) M/uL Hgb (12.0-16.0) g/dL Hct (37-47) % MCV (80-100) fL MCH (25-34) pg MCHC (32-36) g/dL RDW Std Deviation (36.4-46.3) fL RDW Coeff of Rei (11.5-14.5) % Plt Count (130-400) K/uL MPV (7.4-10.4) fL Immature Gran % (Auto) % Neut % (Auto) % Lymph % (Auto) % [place] % (Auto) % Eos % (Auto) % Baso % (Auto) % Neut # (Auto) (1.4-6.5) K/uL Lymph # (Auto) (1.2-3.4) K/uL [place] # (Auto) (0.11-0.59) K/uL Eos # (Auto) (0-0.5) K/uL Baso # (Auto) (0-0.2) K/uL Immature Gran # (Auto) (0.00-0.02) K/uL PT (9.0-12.0) Seconds INR (0.9-1.1) APTT (21.0-31.0) Seconds PTT Ratio Sodium (136-145) mmol/L Potassium (3.5-5.1) mmol/L Chloride (98-107) mmol/L Carbon Dioxide (21-32) mmol/L Anion Gap (3-11) BUN (7-18) mg/dl Creatinine (0.6-1.2) mg/dl Est Cr Clr Drug Dosing ml/min Est GFR ( Amer) Est GFR (Non-Af Amer) BUN/Creatinine Ratio (10-20) Glucose (70-99) mg/dl Calcium (8.5-10.1) mg/dl Magnesium Iron (35-150) mcg/dl TIBC (250-450) mcg/dl Ferritin (8-388) ng/ml Total Bilirubin (0.2-1) mg/dl AST (15-37) U/L ALT (12-78) U/L Alkaline Phosphatase (45-117) U/L Total Creatine Kinase 70 (26-192) U/L CK-MB (CK-2) < 1.0 (0.5-3.6) ng/ml CK/CKMB % Calc TNP Troponin I 0.016 (0-0.045) ng/ml NT-Pro-B Natriuret Pep 32654 H (0-900) pg/ml Total Protein (6.4-8.2) gm/dl Albumin (3.4-5.0) gm/dl Globulin (2.5-4.0) gm/dl Albumin/Globulin Ratio (0.9-2) TSH (0.300-4.500) uIu/ml U Random Total Protein Ur Creatinine mg/dL Protein/Creatinin Ratio Urine Albumin (%) U Ouhta-9-Akukoemp (%) U Rczod-5-Hxrgzmkf (%) U Beta Globulin (%) U Gamma Globulin (%) U Abnormal Prot Band 1 U Abnormal Prot Band 2 U Abnormal Prot Band 3 Urine PEP Interpret Serum Immunofixation JORGE Screen COVID-19 Eval [facility] SARS-CoV-2, RNA, NAAT NEGATIVE (NEGATIVE) 02/25/20 02/25/20 02/25/20 Range/Units 12:40 12:40 12:40 WBC (4.8-10.8) K/uL RBC (4.2-5.4) M/uL Hgb (12.0-16.0) g/dL Hct (37-47) % MCV (80-100) fL MCH (25-34) pg MCHC (32-36) g/dL RDW Std Deviation (36.4-46.3) fL RDW Coeff of Rei (11.5-14.5) % Plt Count (130-400) K/uL MPV (7.4-10.4) fL Immature Gran % (Auto) % Neut % (Auto) % Lymph % (Auto) % [place] % (Auto) % Eos % (Auto) % Baso % (Auto) % Neut # (Auto) (1.4-6.5) K/uL Lymph # (Auto) (1.2-3.4) K/uL [place] # (Auto) (0.11-0.59) K/uL Eos # (Auto) (0-0.5) K/uL Baso # (Auto) (0-0.2) K/uL Immature Gran # (Auto) (0.00-0.02) K/uL PT 11.1 (9.0-12.0) Seconds INR 1.1 (0.9-1.1) APTT 25.0 (21.0-31.0) Seconds PTT Ratio 0.9 Sodium 142 (136-145) mmol/L Potassium 4.1 (3.5-5.1) mmol/L Chloride 111 H (98-107) mmol/L Carbon Dioxide 23 (21-32) mmol/L Anion Gap 8.0 (3-11) BUN 14 (7-18) mg/dl Creatinine 1.09 (0.6-1.2) mg/dl Est Cr Clr Drug Dosing 59.8 ml/min Est GFR ( Amer) 63.0 Est GFR (Non-Af Amer) 54.4 BUN/Creatinine Ratio 13.0 (10-20) Glucose 125 H (70-99) mg/dl Calcium 8.6 (8.5-10.1) mg/dl Magnesium Iron (35-150) mcg/dl TIBC (250-450) mcg/dl Ferritin (8-388) ng/ml Total Bilirubin 0.7 (0.2-1) mg/dl AST 18 (15-37) U/L ALT 33 (12-78) U/L Alkaline Phosphatase 77 (45-117) U/L Total Creatine Kinase (26-192) U/L CK-MB (CK-2) (0.5-3.6) ng/ml CK/CKMB % Calc Troponin I < 0.015 (0-0.045) ng/ml NT-Pro-B Natriuret Pep (0-900) pg/ml Total Protein 6.4 (6.4-8.2) gm/dl Albumin 3.5 (3.4-5.0) gm/dl Globulin 2.9 (2.5-4.0) gm/dl Albumin/Globulin Ratio 1.2 (0.9-2) TSH (0.300-4.500) uIu/ml U Random Total Protein Ur Creatinine mg/dL Protein/Creatinin Ratio Urine Albumin (%) U Katfu-7-Ddsjpqii (%) U Dxhiz-2-Agtbdqow (%) U Beta Globulin (%) U Gamma Globulin (%) U Abnormal Prot Band 1 U Abnormal Prot Band 2 U Abnormal Prot Band 3 Urine PEP Interpret Serum Immunofixation JORGE Screen Pending COVID-19 Eval Order SARS-CoV-2, RNA, NAAT (NEGATIVE) 02/25/20 Range/Units 12:40 WBC 11.36 H (4.8-10.8) K/uL RBC 3.94 L (4.2-5.4) M/uL Hgb 12.0 (12.0-16.0) g/dL Hct 36.8 L (37-47) % MCV 93.4 (80-100) fL MCH 30.5 (25-34) pg MCHC 32.6 (32-36) g/dL RDW Std Deviation 49.4 H (36.4-46.3) fL RDW Coeff of Rei 14.4 (11.5-14.5) % Plt Count 225 (130-400) K/uL MPV 12.0 H (7.4-10.4) fL Immature Gran % (Auto) 0.2 % Neut % (Auto) 83.8 % Lymph % (Auto) 7.2 % [place] % (Auto) 8.1 % Eos % (Auto) 0.3 % Baso % (Auto) 0.4 % Neut # (Auto) 9.53 H (1.4-6.5) K/uL Lymph # (Auto) 0.82 L (1.2-3.4) K/uL [place] # (Auto) 0.92 H (0.11-0.59) K/uL Eos # (Auto) 0.03 (0-0.5) K/uL Baso # (Auto) 0.04 (0-0.2) K/uL Immature Gran # (Auto) 0.02 (0.00-0.02) K/uL PT (9.0-12.0) Seconds INR (0.9-1.1) APTT (21.0-31.0) Seconds PTT Ratio Sodium (136-145) mmol/L Potassium (3.5-5.1) mmol/L Chloride (98-107) mmol/L Carbon Dioxide (21-32) mmol/L Anion Gap (3-11) BUN (7-18) mg/dl Creatinine (0.6-1.2) mg/dl Est Cr Clr Drug Dosing ml/min Est GFR ( Amer) Est GFR (Non-Af Amer) BUN/Creatinine Ratio (10-20) Glucose (70-99) mg/dl Calcium (8.5-10.1) mg/dl Magnesium Iron (35-150) mcg/dl TIBC (250-450) mcg/dl Ferritin (8-388) ng/ml Total Bilirubin (0.2-1) mg/dl AST (15-37) U/L ALT (12-78) U/L Alkaline Phosphatase (45-117) U/L Total Creatine Kinase (26-192) U/L CK-MB (CK-2) (0.5-3.6) ng/ml CK/CKMB % Calc Troponin I (0-0.045) ng/ml NT-Pro-B Natriuret Pep (0-900) pg/ml Total Protein (6.4-8.2) gm/dl Albumin (3.4-5.0) gm/dl Globulin (2.5-4.0) gm/dl Albumin/Globulin Ratio (0.9-2) TSH (0.300-4.500) uIu/ml U Random Total Protein Ur Creatinine mg/dL Protein/Creatinin Ratio Urine Albumin (%) U Hfffl-4-Fyqwyrxk (%) U Zxhhh-2-Eqfglviw (%) U Beta Globulin (%) U Gamma Globulin (%) U Abnormal Prot Band 1 U Abnormal Prot Band 2 U Abnormal Prot Band 3 Urine PEP Interpret Serum Immunofixation JORGE Screen COVID-19 Eval Order SARS-CoV-2, RNA, NAAT (NEGATIVE) Medications Administered Current Inpatient Medications Acetaminophen (Acetaminophen 325 Mg Tab) 650 mg PO Q4H PRN PRN Reason: Pain or Fever Stop: 03/26/20 17:02 Al Hydrox/Mg Hydrox/Simethicone (Aluminum/Magnesium Susp 30 Ml Udc) 15 ml PO Q4H PRN PRN Reason: Dyspepsia Stop: 03/26/20 17:02 Aspirin (Aspirin 81 Mg Ectab) 81 mg PO DAILY SILAS Stop: 03/27/20 08:59 Enoxaparin Sodium (Enoxaparin Inj 40 Mg/0.4 Ml Syr) 40 mg SQ Q24H SILAS Stop: 03/26/20 21:59 Last Admin: 02/25/20 21:13 Dose: 40 mg Documented by: Estrogens Conjugated (Estrogens, Conjugated 0.3 Mg Tab) 0.3 mg PO Q4D@0900 SILAS Stop: 03/27/20 08:59 Lorazepam (Lorazepam 1 Mg Tab) 1 mg PO TID PRN PRN Reason: Anxiety Stop: 03/26/20 17:08 Magnesium Hydroxide (Magnesium Hydroxide Susp 30 Ml Udc) 30 ml PO Q12H PRN PRN Reason: Constipation Stop: 03/26/20 17:02 Ondansetron HCl (Ondansetron Inj 2 Mg/Ml 2 Ml Vial) 4 mg IV Q6H PRN PRN Reason: Nausea Stop: 03/26/20 17:02 Polyethylene Glycol (Polyethylene (Miralax) 17 Gm Pack) 17 gm PO DAILY PRN PRN Reason: Constipation Stop: 03/26/20 17:02 Sertraline HCl (Sertraline Hcl 100 Mg Tablet) 200 mg PO DAILY SILAS Stop: 03/27/20 08:59 Valacyclovir HCl (Valacyclovir Hcl 500 Mg Tablet) 1,000 mg PO DAILY SILAS Stop: 03/27/20 08:59 Vitamin B Complex (Vitamin B Complex Tab) 1 tab PO DAILY SILAS Stop: 03/27/20 08:59
[2020-02-26 08:49] LABS: Albumin Level 3.1 gm/dl (3.4-5.0); BUN Creatinine Ratio 12.1 (10-20); Calcium 8.5 mg/dl (8.5-10.1); Creatinine Clr Calc Pharmacy 63.3 ml/min; Est GFR (African American) 67.5; Est GFR (Non-African American) 58.2; Potassium 3.6 mmol/L (3.5-5.1)
[2020-02-26 08:52] LABS: Albumin Globulin Ratio 1.1 (0.9-2); Globulin 2.9 gm/dl (2.5-4.0)
[2020-02-26] MEDS ORDERED: ESTROGENS, CONJUGATED 0.3 MG TAB PO SCH (09:00)
[2020-02-26] MEDS ORDERED: FUROSEMIDE 40 MG in SYRINGE 0 ML IV ONE (09:16)
[2020-02-26] MEDS: VITAMIN B COMPLEX TAB PO SCH (09:16)
[2020-02-26] MEDS: SERTRALINE HCL 100 MG TABLET PO SCH (09:16)
[2020-02-26] MEDS: valACYclovir HCL 500 MG TABLET PO SCH (09:16)
[2020-02-26] MEDS: ASPIRIN 81 MG ECTAB PO SCH (09:17)
[2020-02-26] MEDS ORDERED: POTASSIUM CHLORIDE CRTAB 20 MEQ TABCR PO STA (09:17)
[2020-02-26] MEDS: SPIRONOLACTONE 12.5 MG TAB PO SCH (10:03)
[2020-02-26] MEDS ORDERED: AMIODARONE 200 MG TAB PO ONE (12:30)
--- NOTE | 2020-02-26 12:37 | Cardiology Progress Note ---
Date of Service February 26, 2020 Assessment & Plan (1) Idiopathic cardiomyopathy: (2) Acute HFrEF (heart failure with reduced ejection fraction): (3) Frequent PVCs: Patient with longstanding history of nonischemic cardiomyopathy dating back to 2010, angiographically normal coronary arteries at that time. Frequent ventricular ectopy noted. Recent interval clinical decompensation in terms of worsening symptoms, volume overload, and echocardiographic findings of new severe left ventricular chamber dilatation, new severe left ventricular systolic dysfunction, with biatrial enlargement, and mitral valve/tricuspid valve regurgitation due to dilated cardiomyopathy tethering of the mitral valve leaflets due to LV chamber enlargement, and mitral valve annulus dilatation (mitral regurgitation is secondary to cardiomyopathy rather than organic heart disease). Medication therapy is somewhat limited due to the patient's relative low baseline systolic blood pressure in the range of 100 -110 mmHg. Diagnostics: Recent echocardiogram things as previously noted. Decline in her LVEF compared to May,. Her echocardiographic findings are very concerning. Optimize volume status. Future considerations include cardiac MRI for further soft tissue characterization, evaluation of myocardial scar. It has been almost 10 years since her prior cardiac catheterization, but this does seem to be a continual of her previously diagnosed nonischemic cardiomyopathy, severe global left ventricular hypokinesis noted. Continue metoprolol, IV furosemide, add low-dose spironolactone. Given the significance of her ventricular arrhythmia, add amiodarone. Liver function tests were within normal limits, LFTs within normal limits. Although amiodarone treatment is not ideal in this young patient, severity of her findings, believe this is the next best step. EP consultation today as inpatient. Consider [employer] Life Vest wearable defibrillator, as cardiac MRI information valuable prior to implantation of ICD. Continue Lovenox for DVT prophylaxis. Admission and Anticipated Discharge Date Admission Date: February 25, 2020 Subjective Patient seen in follow-up. She felt improved last night after receiving IV furosemide, with interval resolution of her chest tightness, she is now able to lie supine without feeling "suffocating "and her cough has improved. Telemetry reveals ongoing sinus rhythm with frequent unifocal premature ventricular contractions. Review of Systems Review of Systems: All systems reviewed & are unremarkable except as noted in HPI & below Physical Exam Physical Exam: Temp Pulse Resp BP Pulse Ox 37.2 C 74 96 H 100/64 96 02/26/20 08:29 02/26/20 08:29 02/26/20 08:29 02/26/20 08:29 02/26/20 08:29 Constitutional: WD/WN, vitals as above Respiratory: no cough Auscultation: + rales (Minimal bibasilar Rales, improved compared to 02/25/2020); no wheezes Cardiovascular: Regular rhythm with ectopy, 1/6 systolic murmur Gastrointestinal (Abdomen): normal bowel sounds, soft, nontender, no hepatosplenomegaly Neurologic: PERRL, EOMI, accommodation nl, no face palsy, no dysarthria Results & Data ([facility]) Vital Signs (Past 12 Hours) Vital Signs Temp Pulse Pulse Resp BP Pulse Ox 02/26/20 08:29 37.2 C 74 96 H 100/64 96 02/26/20 07:00 94 H 02/26/20 03:13 37.2 C 80 17 99/69 L 91
--- NOTE | 2020-02-26 15:35 | Cardiology Consultation ---
Date of Consultation February 26, 2020 Assessment & Plan (1) Frequent PVCs: (2) Idiopathic cardiomyopathy: (3) Acute HFrEF (heart failure with reduced ejection fraction): History of Present Illness Reason for Consultation: Cardiomyopathy and PVCs Requesting Physician: Dr. Herzog Attending Physician: Juan Pierre MD History of Present Illness Pt has a prolonged history of NICM mildy reduced EF that possibly improved a year ago. She has had a long standing history of slightly symptomatic frequent PVCs. She has been on coreg for these for years. She was admitted to [facility] due to chest pains associated with SOB/IBARRA and LE edema with high severity over the past few days. She was found to be in acute systolic decompensated HF and her EF was significantly reduced and dilated LV. She is responding to IV diuresis. She continues to have frequent PVCs so EP has been consulted. Allergies Allergy/AdvReac Type Severity Reaction Status Date / Time Sulfa (Sulfonamide Allergy Intermediate HIVES Verified 02/25/20 14:00 Antibiotics) Home Medications Medication Instructions Recorded Confirmed Type aspirin [Aspir-81] 81 mg PO DAILY 02/25/20 02/25/20 History carvedilol 6.25 mg PO BID 02/25/20 02/25/20 History conjugated estrogens [Premarin] 0.3 mg PO Q4D 02/25/20 02/25/20 History lisinopril 5 mg PO BID 02/25/20 02/25/20 History lorazepam 1 mg PO TID PRN 02/25/20 02/25/20 History ondansetron 4 mg PO Q6H 02/25/20 02/25/20 History sertraline 200 mg PO DAILY 02/25/20 02/25/20 History sumatriptan succinate 100 mg PO UD PRN 02/25/20 02/25/20 History valacyclovir 1,000 mg PO DAILY 02/25/20 02/25/20 History vitamin B complex [B Complex] 1 cap PO DAILY 02/25/20 02/25/20 History Patient History Medical History Anxiety Bipolar 1 disorder Genital HSV on chronic suppressive valtrex Idiopathic cardiomyopathy Migraine Palpitations Surgical History History of ankle surgery History of bunionectomy History of cholecystectomy History of surgery on left wrist History of total abdominal hysterectomy and bilateral salpingo-oophorectomy Family History Father CHF (congestive heart failure) Other Diabetes Social History Smoking Status: Never smoker Hx Alcohol Use: No Hx Substance Use: No Preferred Language: Frisian Communication Ability: Effective Bicycle Service Technician Required: No Beliefs That Will Affect Care: None marital status: Single Current Living Situation: Alone Current Living Situation Comment: self and guinea pig current occupation: retired Other Information That Helps Us Care for You: No Feels Safe at Home: Yes Safety Concerns: Feels Safe At This Time Assistive Devices: Glasses Review of Systems Review of Systems: All systems reviewed & are unremarkable except as noted in HPI & below Physical Exam Physical Exam: Gen: aaox3, NAD Head: NC/AT Eyes: EOMI Neck: Supple No JVD Cor: Nrl S1/S2, + murmur, +extra systolic beats Pulm: CTA b/l no w/r/r GI: soft nt/nd Ext: slight LE edema b/l skin: intact Neuro: no focal deficits Psych: Normal thought pattern Results & Data ([facility]) Vital Signs (Past 12 Hours) Vital Signs Temp Pulse Pulse Resp BP Pulse Ox 02/26/20 08:29 37.2 C 74 96 H 100/64 96 02/26/20 07:00 94 H ECGs: 02/24:SR and ST with frequent PVCs Telemetry: SR with PVCs Echocardiogram: from office 01/23/2020: EF < 20%; grade III diastolic dysfunction; Moderate to severe TR; Severe MR
--- NOTE | 2020-02-26 15:52 | Electrocardiogram Report ---
Test Reason : Blood Pressure : / mmHG Vent. Rate : 105 BPM Atrial Rate : 105 BPM P-R Int : 172 ms QRS Dur : 098 ms QT Int : 336 ms P-R-T Axes : 069 026 056 degrees QTc Int : 444 ms Sinus tachycardia with frequent , and consecutive Premature ventricular complexes Possible Left atrial enlargement Nonspecific T wave abnormality Abnormal ECG When compared with ECG of 21-MAR-2014 13:04, Premature ventricular complexes are now Present Vent. rate has increased BY 46 BPM Confirmed by Ambrocio Loza ([id number]) on 02/26/2020 3:51:52 PM Referred By: Confirmed By:Ambrocio Loza
--- NOTE | 2020-02-26 15:56 | Electrocardiogram Report ---
Test Reason : Blood Pressure : / mmHG Vent. Rate : 100 BPM Atrial Rate : 098 BPM P-R Int : 164 ms QRS Dur : 102 ms QT Int : 342 ms P-R-T Axes : 066 -03 013 degrees QTc Int : 441 ms Sinus rhythm Premature ventricular complexes Nonspecific T wave abnormality Abnormal ECG When compared with ECG of 25-FEB-2020 12:10, (unconfirmed) No significant change Confirmed by Ambrocio Loza ([id number]) on 02/26/2020 3:56:37 PM Referred By: REFERRED SELF Confirmed By:Ambrocio Loza
[2020-02-26] MEDS: AMIODARONE 200 MG TAB PO SCH (17:38)
[2020-02-26] MEDS: ENOXAPARIN INJ 40 MG/0.4 ML SYR SQ SCH (22:02)
[2020-02-27 07:26] LABS: Calcium 8.4 mg/dl (8.5-10.1); Creatinine Clr Calc Pharmacy 64.8 ml/min; Est GFR (African American) 70.8; Est GFR (Non-African American) 61.1; Magnesium 2.2 mg/dl (1.8-2.4); Potassium 4.3 mmol/L (3.5-5.1)
[2020-02-27] MEDS: valACYclovir HCL 500 MG TABLET PO SCH (08:19)
[2020-02-27] MEDS: AMIODARONE 200 MG TAB PO SCH (08:19)
[2020-02-27] MEDS: SPIRONOLACTONE 12.5 MG TAB PO SCH (08:19)
[2020-02-27] MEDS: VITAMIN B COMPLEX TAB PO SCH (08:19)
[2020-02-27] MEDS: ASPIRIN 81 MG ECTAB PO SCH (08:19)
[2020-02-27] MEDS: SERTRALINE HCL 100 MG TABLET PO SCH (08:20)
[2020-02-27] MEDS ORDERED: FUROSEMIDE 40 MG in SYRINGE 0 ML IV SCH (08:45)
[2020-02-27 10:27] LABS: Anti Nuclear Antibody Screen NEGATIVE (NEGATIVE)
--- NOTE | 2020-02-27 11:10 | Cardiology Progress Note ---
Date of Service February 27, 2020 Assessment & Plan (1) Acute HFrEF (heart failure with reduced ejection fraction): (2) Idiopathic cardiomyopathy: (3) Frequent PVCs: Patient with longstanding history of idiopathic nonischemic cardiomyopathy, remote cardiac catheterization, May,, revealed angiographically normal coronary arteries. Echocardiogram studies over the intervening years, have revealed varying levels of LV systolic dysfunction. She has had a recent slow but steady decline in her activity tolerance, with 20 pound weight gain over the last year. Increased subjective palpitations. Echocardiogram (images reviewed independently) performed as an outpatient January, revealed new severe left ventricular chamber dilatation, left ventricular end-diastolic dimension 6.2 cm, severe global left ventricular hypokinesis LVEF less than 20%, with mitral valve and tricuspid valve regurgitation secondary to cardiac chamber dilatation rather than organic valvular heart disease. Patient has a longstanding history of symptomatic PVCs, with recent worsening palpitations. Clinical and echocardiogram findings suggest progression of longstanding nonischemic cardiomyopathy, although her age, coronary heart disease is a less likely consideration. Patient has improved symptomatically with diuresis. Chronic borderline hypotension present, limiting medication doses. I believe her presenting symptoms of chest tightness and orthopnea are explained her volume overload, presentation suggestive of an acute coronary syndrome or unstable angina. DIAGNOSTICS: Iron studies performed this hospital stay are normal, not suggestive of hemochromatosis. TSH within normal limits. JORGE screen negative. SPEP, UPEP, obtained, pending. [place] [facility] [place] will place order in her outpatient chart. THERAPEUTICS: Discontinue prior to hospital treatment with carvedilol 6.25 mg twice daily in favor of metoprolol succinate 50 mg daily. Add amiodarone 200 mg twice daily. Baseline LFTs, TSH within normal limits. Although patient is young, her drastic decline cardiographic and clinical standpoint, necessitates aggressive medication measures. She has a longstanding history of frequent PVCs. Frequent PVCs noted on child monitor at present. Perhaps her LVEF will improve with PVC suppression. Patient seen by electrophysiology, the axis of the PVCs suggest that it is not of right ventricular outflow tract origin. Future considerations may include EP study for consideration of ablation. Cardiac MRI will be helpful in terms of planning such a procedure, and it is most ideal to obtain the MRI prior to placement of an ICD. In the meantime, we will proceed with placing a [employer] Life Vest wearable defibrillator, for prevention of sudden cardiac while ongoing evaluation treatment proceeds pending possible placement of an ICD. Application information faxed yesterday and accepted, [employer] sales representative is anticipated to fit the patient this morning. Discharge medications: Metoprolol succinate 50 mg daily in the morning (prior to hospital carvedilol discontinued) Amiodarone 200 mg twice daily, new medication Furosemide 20 mg daily, new medication Spironolactone 25 mg, 1/2 tablet or 12.5 mg daily, new medication Lisinopril 5 mg daily, dose reduced from 5 mg twice daily. Continue to wean Premarin as tolerated, patient taking 0.3 mg every 4 days at [facility]. Avoid use of Zofran given amiodarone treatment. Given her mental health history, I think it is reasonable to continue treatment with Zoloft. Corrected QT interval 441 ms on EKG 02/25/2020, this will need to be followed closely as an outpatient. Would advise against treatment with sumatriptan in future. DISPOSITION: Stable for discharge from cardiac perspective after Life Vest fitted. I have ordered a CMP due on or shortly after 03/10/20 in her [employer] chart ,which she can have at the [employer] lab most convenient for her in follow up of her LFTs and renal function. I placed order for cardiac MRI. I have requested a cardio follow up visit for next month. Admission and Anticipated Discharge Date Admission Date: February 25, 2020 Subjective Ms Morris was seen in cardiology follow up. She notes feeling well. Her chest "tightness ", cough, and orthopnea symptoms that prompted her to come to the emergency room have resolved. Review of Systems Review of Systems: All systems reviewed & are unremarkable except as noted in HPI & below Physical Exam Physical Exam: Temp Pulse Resp BP Pulse Ox 37.5 C 82 16 93/57 L 93 02/27/20 11:00 02/27/20 11:00 02/27/20 11:00 02/27/20 11:02/27/20 11:00 Constitutional: WD/WN, vitals as above Respiratory: normal respiratory effort; no respiratory distress, no labored breathing, no cough and not tachypneic Auscultation: + rales (Minimal bibasilar Rales, much improved compared to admission.); no rhonchi Cardiovascular: Rate/Rhythm: regular rhythm Heart Sounds: + murmur (I/ SM) Gastrointestinal (Abdomen): normal bowel sounds, soft, nontender, no hepatosplenomegaly Neurologic: PERRL, EOMI, accommodation nl, no face palsy, no dysarthria Results & Data ([facility]) Vital Signs (Past 12 Hours) Vital Signs Temp Pulse Resp BP BP Pulse Ox 02/27/20 11:00 37.5 C 82 16 93/57 L 93 02/27/20 07:03 37.2 C 87 18 105/70 94 02/27/20 02:51 36.7 C 72 18 95/55 L 92 02/26/20 23:17 36.8 C 82 18 91/54 L 93 Laboratory Results Comprehensive Metabolic Panel 02/27/20 Range/Units 06:19 Sodium 141 (136-145) mmol/L Potassium 4.3 D (3.5-5.1) mmol/L Chloride 111 H (98-107) mmol/L Carbon Dioxide 27 (21-32) mmol/L BUN 15 (7-18) mg/dl Creatinine 0.99 (0.6-1.2) mg/dl Glucose 89 (70-99) mg/dl Calcium 8.4 L (8.5-10.1) mg/dl Intake and Output 02/26/20 02/27/20 02/27/20 22:59 06:59 14:59 Intake Total 120 / 860 Balance 120 / 110 Intake: Oral 120 / 860 Other: Weight 85.3 kg Weight Measurement Method Standing Scale
[2020-02-27] MEDS ORDERED: METOPROLOL SUCC 50MG EXT REL TAB PO SCH (11:30)
--- NOTE | 2020-02-27 12:50 | Hospitalist Progress Note ---
Date of Service February 27, 2020 Assessment & Plan (1) Acute HFrEF (heart failure with reduced ejection fraction): (2) Idiopathic cardiomyopathy: (3) Frequent PVCs: "This is a 64-year-old female who has known past medical history of idiopathic cardiomyopathy, PVCs, bipolar disorder, anxiety, hx of HSV who presents to ED secondary to constant chest tightness x1 day. In ED patient remained hemodynamically stable and saturating well on room air. Lab work notable for WBC 11.36k, H&H 12.0 and 36.8, platelet 225, BUN 14, creatinine 1.09, glucose 125, proBNP 22,260, SARS-CoV-2 negative. Chest x-ray revealed small pleural effusions, cardiomegaly with evidence of CHF." as per cardiology evaluation "She has had a recent slow but steady decline in her activity tolerance, with 20 pound weight gain over the last year. Increased subjective palpitations. Echocardiogram (images reviewed independently) performed as an outpatient January, revealed new severe left ventricular chamber dilatation, left ventricular end-diastolic dimension 6.2 cm, severe global left ventricular hypokinesis LVEF less than 20%, with mitral valve and tricuspid valve regurgitation secondary to cardiac chamber dilatation rather than organic valvular heart disease. Patient has a longstanding history of symptomatic PVCs, with recent worsening palpitations. Clinical and echocardiogram findings suggest progression of longstanding nonischemic cardiomyopathy, although her age, coronary heart disease is a less likely consideration. Patient has improved symptomatically with diuresis. Chronic borderline hypotension present, limiting medication doses. I believe her presenting symptoms of chest tightness and orthopnea are explained her volume overload, presentation suggestive of an acute coronary syndrome or unstable angina. DIAGNOSTICS: Iron studies performed this hospital stay are normal, not suggestive of hemochromatosis. TSH within normal limits. JORGE screen negative. SPEP, UPEP, obtained, pending." -02/27/2020 discharge to home with [employer] Life Vest wearable defibrillator, for prevention of sudden cardiac (while ongoing evaluation treatment proceeds pending possible placement of an ICD.) Discharge medications sent electronically to [facility] [place] [address] Metoprolol succinate 50 mg daily in the morning (home medication of carvedilol discontinued) Amiodarone 200 mg twice daily, new medication Furosemide 20 mg daily, new medication Spironolactone 25 mg, 1/2 tablet or 12.5 mg daily, new medication Lisinopril 5 mg daily, dose reduced from 5 mg twice daily. Continue to wean Premarin as tolerated, patient taking 0.3 mg every 4 days at home. Avoid use of Zofran given amiodarone treatment. continue treatment with Zoloft. Corrected QT interval 441 ms on EKG 02/25/2020, this will need to be followed closely as an outpatient. cardiology advise against treatment with sumatriptan in future. Cardiology Dr. Herzog ordered outpatient lab (comprehensive metabolic panel)which pt is to have on or soon after 03/10/[address]. [address] Gerard had recommended a cardiac MRI [place] [facility] [place],, and Dr. Herzog also ordered the MRI for outpatient scheduled appointments primary care 03/03/2020 11:20 AM Provider Alex Fink DO Department Family Practice [facility] 03/28/2020 9:00 AM Provider Kim Gerard DO Department Cardiology, [facility] 04/28/2020 3:00 PM Provider Laxmi Weston PA-C Department Cardiology, [facility] 05/21/2020 5:30 PM Provider Alf Lopez DO Department Cardiology, [facility] (4) Bipolar 1 disorder: (5) Anxiety: -continue zoloft and prn lorazepam (6) DVT prophylaxis: SQ Lovenox was given while in the hospital Admission and Anticipated Discharge Date Admission Date: February 25, 2020 Subjective Patinet has Life Vest. Patient denies acute chest pain. Breathing on room air. no acute shortness of breath. no abdomen pain. no chest pain. No dizziness. No headache. No other symptoms reported on exam. Discharge plans discussed at length Review of Systems Review of Systems: All systems reviewed & are unremarkable except as noted in Subjective Physical Exam Constitutional: cooperative and comfortable Eyes: PERRL, conjunctivae normal, anicteric sclerae EOM intact bilaterally ENMT: external ear and nose normal, oropharynx normal Neck: normal visual inspection Respiratory: normal respiratory effort Cardiovascular: Rate/Rhythm: regular rate Gastrointestinal (Abdomen): normal bowel sounds, soft, nontender, no hepatosplenomegaly Musculoskeletal: Head/Neck/Chest: normocephalic and head atraumatic Neurologic: PERRL, EOMI, accommodation nl, no face palsy, no dysarthria CN's II-XI intact bilaterally Psychiatric: A+Ox3, euthymic affect Results & Data Results & Data ([facility]) Vital Signs (Past 12 Hours) Vital Signs Temp Pulse Resp BP BP Pulse Ox 02/27/20 11:00 37.5 C 82 16 93/57 L 93 02/27/20 07:03 37.2 C 87 18 105/70 94 02/27/20 02:51 36.7 C 72 18 95/55 L 92
--- NOTE | 2020-02-27 12:52 | Discharge Summary ---
Date of Service February 27, 2020 Admission HPI Per Admitting Provider This is a 64-year-old female who has known past medical history of idiopathic cardiomyopathy, PVCs, bipolar disorder, anxiety, hx of HSV who presents to ED secondary to constant chest tightness x1 day. Patient has a longstanding history of following with cardiology. Unfortunately she had a idiopathic cardiomyopathy in years past. On appropriate medication regimen her ejection fraction recovered. Due to complaints of frequent PVCs she was seen and evaluated on 01/22 and had echocardiogram. This unfortunately revealed severe hypokinesis globally LV dilatation, EF less than 20%, dilated mitral annulus, moderate TR, severe biatrial enlargement. She was scheduled tomorrow to see electrophysiology; however starting at approximately 9 PM last night she developed a constant chest tightness. Chest tightness was localized substernally, did not radiate, orthopnea, improved with sitting forward, never experienced in the past, associated with abdominal bloating and fullness, weight gain of approximately 20 pounds. Typically she runs 165 to 170 pounds but most recently was 193 pounds. She denies any recent fever, chills, lightheadedness, dizziness, shortness of breath at rest, nausea, vomiting, abdominal pain, change in bowel or urinary habits. She does complain of cough that is been ongoing for the past 2 months, is nonproductive, but feels has worsened in the past 2 weeks. In ED patient remained hemodynamically stable and saturating well on room air. Lab work notable for WBC 11.36k, H&H 12.0 and 36.8, platelet 225, BUN 14, creatinine 1.09, glucose 125, proBNP 22,260, SARS-CoV-2 negative. Chest x-ray revealed small pleural effusions, cardiomegaly with evidence of CHF. Principal Diagnosis Acute HFrEF (heart failure with reduced ejection fraction) Idiopathic cardiomyopathy Frequent PVCs Discharge Exam Constitutional cooperative and comfortable Eyes PERRL, conjunctivae normal, anicteric sclerae EOM intact bilaterally ENMT external ear and nose normal, oropharynx normal Neck normal visual inspection Respiratory normal respiratory effort Cardiovascular Rate/Rhythm: regular rate Gastrointestinal (Abdomen) normal bowel sounds, soft, nontender, no hepatosplenomegaly Musculoskeletal Head/Neck/Chest: normocephalic and head atraumatic Neurologic PERRL, EOMI, accommodation nl, no face palsy, no dysarthria CN's II-XI intact bilaterally Psychiatric A+Ox3, euthymic affect Discharge Data Allergies Allergy/AdvReac Type Severity Reaction Status Date / Time Sulfa (Sulfonamide Allergy Intermediate HIVES Verified 02/25/20 14:00 Antibiotics) Consultations 02/25/20 13:20 Consult Cardiology Stat 02/25/20 14:39 ED Decision to Admit Stat 02/25/20 17:03 Consult Case Management - Discharge Planning Routine 02/26/20 12:07 Consult Cardiac Electrophysiology Routine Hospital Course (1) Acute HFrEF (heart failure with reduced ejection fraction): (2) Idiopathic cardiomyopathy: (3) Frequent PVCs: "This is a 64-year-old female who has known past medical history of idiopathic cardiomyopathy, PVCs, bipolar disorder, anxiety, hx of HSV who presents to ED secondary to constant chest tightness x1 day. In ED patient remained hemodynamically stable and saturating well on room air. Lab work notable for WBC 11.36k, H&H 12.0 and 36.8, platelet 225, BUN 14, creatinine 1.09, glucose 125, proBNP 22,260, SARS-CoV-2 negative. Chest x-ray revealed small pleural effusions, cardiomegaly with evidence of CHF." as per cardiology evaluation "She has had a recent slow but steady decline in her activity tolerance, with 20 pound weight gain over the last year. Increased subjective palpitations. Echocardiogram (images reviewed independently) performed as an outpatient January, revealed new severe left ventricular chamber dilatation, left ventricular end-diastolic dimension 6.2 cm, severe global left ventricular hypokinesis LVEF less than 20%, with mitral valve and tricuspid valve regurgitation secondary to cardiac chamber dilatation rather than organic valvular heart disease. Patient has a longstanding history of symptomatic PVCs, with recent worsening palpitations. Clinical and echocardiogram findings suggest progression of longstanding nonischemic cardiomyopathy, although her age, coronary heart disease is a less likely consideration. Patient has improved symptomatically with diuresis. Chronic borderline hypotension present, limiting medication doses. I believe her presenting symptoms of chest tightness and orthopnea are explained her volume overload, presentation suggestive of an acute coronary syndrome or unstable angina. DIAGNOSTICS: Iron studies performed this hospital stay are normal, not suggestive of hemochromatosis. TSH within normal limits. JORGE screen negative. SPEP, UPEP, obtained, pending." -02/27/2020 discharge to home with [employer] Life Vest wearable defibrillator, for prevention of sudden cardiac (while ongoing evaluation treatment proceeds pending possible placement of an ICD.) Discharge medications sent electronically to [address] [place] [address] Metoprolol succinate 50 mg daily in the morning (home medication of carvedilol discontinued) Amiodarone 200 mg twice daily, new medication Furosemide 20 mg daily, new medication Spironolactone 25 mg, 1/2 tablet or 12.5 mg daily, new medication Lisinopril 5 mg daily, dose reduced from 5 mg twice daily. Continue to wean Premarin as tolerated, patient taking 0.3 mg every 4 days at home. Avoid use of Zofran given amiodarone treatment. continue treatment with Zoloft. Corrected QT interval 441 ms on EKG 02/25/2020, this will need to be followed closely as an outpatient. cardiology advise against treatment with sumatriptan in future. Cardiology Dr. Herzog ordered outpatient lab (comprehensive metabolic panel)which pt is to have on or soon after 03/10/[address]. [address] Gerard had recommended a cardiac MRI which [place] be performed [place] [facility] [place],, and Dr. Herzog also ordered the MRI for outpatient scheduled appointments primary care 03/03/2020 11:20 AM Provider Alex Fink Department Family Practice [facility] 03/28/2020 9:00 AM Provider Kim Gerard DO Department Cardiology, [facility] 04/28/2020 3:00 PM Provider Laxmi Weston PA-C Department Cardiology, [facility] 05/21/2020 5:30 PM Provider Alf Lopez DO Department Cardiology, [facility] (4) Bipolar 1 disorder: (5) Anxiety: -continue zoloft and prn lorazepam (6) DVT prophylaxis: SQ Lovenox was given while in the hospital Total Time Total Time Spent Total Time Spent (In Minutes): 40 minutes Total Time Includes: Examination of the Patient, Discharge Planning, Medication Reconciliation and Communication With Other Providers Discharge Plan Discharge Items Patient Disposition: Home - Self-Care Reason For Visit: ACUTE DECOMPENSATED HFrEF Discharge Diagnosis: Acute HFrEF (heart failure with reduced ejection fraction) Idiopathic cardiomyopathy Frequent PVCs Condition on Discharge: Good Activity: Resume your previous activity Non-emergency contact: Primary Care Provider and Equipment Service Engineer Call non-emergency contact if: you have any medication questions Follow-up/Referrals: Gregory Garcia DO [Primary Care Provider] - Diet: Heart Healthy and Low Sodium (2gm) Fluids: 1500ml (6 cups) Addtl Attending Provider Instructions: discharge to home with [employer] Life Vest wearable defibrillator, for prevention of sudden cardiac (while ongoing evaluation treatment proceeds pending possible placement of an ICD.) Discharge medications sent electronically to [place] [id number] [place] [address] Metoprolol succinate 50 mg daily in the morning (home medication of carvedilol discontinued) Amiodarone 200 mg twice daily, new medication Furosemide 20 mg daily, new medication Spironolactone 25 mg, 1/2 tablet or 12.5 mg daily, new medication Lisinopril 5 mg daily, dose reduced from 5 mg twice daily. Continue to wean Premarin as tolerated, patient taking 0.3 mg every 4 days at home. Avoid use of Zofran given amiodarone treatment. continue treatment with Zoloft. Corrected QT interval 441 ms on EKG 02/25/2020, this will need to be followed closely as an outpatient. cardiology advise against treatment with sumatriptan in future. Cardiology Dr. Herzog ordered outpatient lab (comprehensive metabolic panel)which pt is to have on or soon after 03/10/[address]. [address] Gerard had recommended a cardiac MRI which can be performed [place] [facility],, and Dr. Herzog also ordered the MRI for outpatient scheduled appointments primary care 03/03/2020 11:20 AM Provider Alex Fink DO Department Family Practice [facility] 03/28/2020 9:00 AM Provider Kim Gerard DO Department Cardiology, [facility] 04/28/2020 3:00 PM Provider Laxmi Weston PA-C Department Cardiology, [facility] 05/21/2020 5:30 PM Provider Alf Lopez DO Department Cardiology, [facility] Add Seismograph Operator Helper Provider Instructions: Clinical and echocardiogram findings suggest progression of longstanding nonischemic cardiomyopathy DIAGNOSTICS: Iron studies performed this hospital stay are normal, not suggestive of hemochromatosis. TSH within normal limits. JORGE screen negative. SPEP, UPEP, obtained, pending. Pending Studies at Discharge: No Stand-Alone Forms: My [facility], Smoking Cessation Medications and DC Order Prescriptions: New amiodarone 200 mg Tablet 200 mg PO BIDM 30 Days Qty: 60 RF: 0 metoprolol succinate 50 mg Tablet Extended Release 24 Hr 50 mg PO QAM 30 Days Qty: 30 RF: 0 spironolactone 25 mg Tablet 12.5 mg PO DAILY 30 Days Qty: 15 RF: 0 lisinopril [Zestril] 5 mg Tablet 5 mg PO QAM 30 Days Qty: 30 RF: 0 Continued valacyclovir 1 gram tablet 1,000 mg PO DAILY RF: 0 sertraline 100 mg Tablet 200 mg PO DAILY RF: 0 aspirin [Aspir-81] 81 mg Tablet,Delayed Release (Dr/Ec) 81 mg PO DAILY RF: 0 lorazepam 1 mg tablet 1 mg PO TID PRN (Reason: Anxiety) RF: 0 vitamin B complex [B Complex] Capsule 1 cap PO DAILY RF: 0 Premarin 0.3 mg Tablet 0.3 mg PO Q4D RF: 0 Discontinued carvedilol 6.25 mg tablet 6.25 mg PO BID RF: 0 sumatriptan succinate 100 mg Tablet 100 mg PO UD PRN (Reason: Migraine Headache) RF: 0 lisinopril 5 mg Tablet 5 mg PO BID RF: 0 ondansetron 4 mg Tablet,Disintegrating 4 mg PO Q6H RF: 0 Discharge Orders: Discharge Order (Routine); Ordered 02/27/20 Ordered By: Camacho Villar/Other Patient Handouts: Heart Failure Dc Admission Data Admit Date/Time: 02/25/20 15:23 Attending Provider: Camacho Bush Admit Provider: Nahomy Yanez Primary Care Provider: Gregory Garcia Other Providers: Grant Herzog ; Nahomy Yanez ; Kim Gerard
[2020-02-28 05:19] LABS: Creatinine Ur 73 mg/dL (20-275); Protein, Urine Random 10 mg/dL (5-24); Ur Protein/Creat Ratio mg/g 137 mg/g creat (21-161); Urine Abnormal Protein Band 1 DNR mg/dL (NONE DETECTED); Urine Abnormal Protein Band 2 DNR mg/dL (NONE DETECTED); Urine Abnormal Protein Band 3 DNR mg/dL (NONE DETECTED); Urine Protein/Creatinine Ratio 0.137 (0.021-0.161)
[2020-02-28] MEDS ORDERED: lisinopril 5 MG TAB PO SCH (09:00)
[2020-02-28] MEDS ORDERED: FUROSEMIDE 20 MG TAB PO SCH (09:00)
== END 2020-02-27 14:18 | disposition home or self-care (01) ==
LOC: ED 12:03 → 2S 15:23 → INTOOBSV 15:23 → SUATTDRO 15:23 → 2S 15:58

== ENCOUNTER 2020-08-11 23:30 | Inpatient (IN) ==
[2020-08-12 00:23] LABS: Alanine Aminotransferase 10 U/L (12-78); Albumin Level 2.2 gm/dl (3.4-5.0); Aspartate Aminotransferase 19 U/L (15-37); BUN Creatinine Ratio 10.1 (10-20); Blood Urea Nitrogen 15 mg/dl (7-18); Calcium 8.1 mg/dl (8.5-10.1); Carbon Dioxide 27 mmol/L (21-32); Chloride 102 mmol/L (98-107); Est GFR (African American) 42.9 ml/min; Glucose 129 mg/dl (70-99); Potassium 3.1 mmol/L (3.5-5.1); Sodium 137 mmol/L (136-145)
[2020-08-12] MEDS ORDERED: SODIUM CHLORIDE 0.9% 1000ML 1,000 ML IV ONE (00:23)
[2020-08-12 00:27] LABS: Albumin Globulin Ratio 0.6 (0.9-2); Alkaline Phosphatase 110 U/L (45-117); Bilirubin,Total 0.9 mg/dl (0.2-1); Total Protein 6.2 gm/dl (6.4-8.2); Troponin I < 0.015 ng/ml (0-0.045)
[2020-08-12] MEDS ORDERED: POTASSIUM CHLORIDE CRTAB 20 MEQ TABCR PO STA (00:41)
[2020-08-12 00:42] LABS: Hematocrit (blood only) 32.4 % (37-47); Hemoglobin 11.1 g/dL (12.0-16.0); Mean Corpuscular Hemoglobin 30.8 pg (25-34); Mean Corpuscular Hgb Conc 34.3 g/dL (32-36); Mean Platelet Volume 12.4 fL (7.4-10.4); Platelet Count 95 K/uL (130-400); RDW Coefficient of Variation 14.2 % (11.5-14.5); RDW Standard Deviation 47.2 fL (36.4-46.3); White Blood Count 13.55 K/uL (4.8-10.8)
[2020-08-12 00:43] LABS: Basophils # (auto) 0.01 K/uL (0-0.2); Basophils % (auto) 0.1 %; Eosinophils # (auto) 0.01 K/uL (0-0.5); Eosinophils % (auto) 0.1 %; Immature Granulocytes # (auto) 0.03 K/uL (0.00-0.02); Immature Granulocytes % (auto) 0.2 %; Lymphocytes # (auto) 0.84 K/uL (1.2-3.4); Lymphocytes % (auto) 6.2 %; Monocytes # (auto) 0.43 K/uL (0.11-0.59); Monocytes % (auto) 3.2 %; Neutrophils # (auto) 12.23 K/uL (1.4-6.5); Neutrophils % (auto) 90.2 %; Platelet Estimate Decreased (Normal); RBC Morphology Unremarkable
[2020-08-12 00:53] LABS: Creatine Kinase 14 U/L (26-192); Creatine Kinase MB < 1.0 ng/ml (0.5-3.6)
[2020-08-12] MEDS: POTASSIUM CHLORIDE / WTR 10 MEQ/100 ML PLCT IV SCH ×2 (01:07→02:31)
[2020-08-12 01:12] LABS: Magnesium 1.8 mg/dl (1.8-2.4)
[2020-08-12] MEDS ORDERED: OPTIRAY 320 100ml IV ONE (01:53)
--- NOTE | 2020-08-12 02:35 | History & Physical Report ---
Date of Service August 12, 2020 Assessment & Plan (1) Severe sepsis: SIRS plus lactic acid elevation Secondary illness rule out C. difficile Rule out UTI chronic systolic heart failure secondary to nonischemic cardiomyopathy (EF 20%, TTE 2019) status post ICD, patient on the dry side CRI, creatinine at baseline Chronic anemia, hemoglobin at baseline anxiety/mood disorder, at baseline Hypokalemia secondary to GI illness and home diuretic Rx Hyperglycemia rule out DM Medical telemetry Gentle IV given cardiomyopathy history, follow lactic acid Appropriate to hold home diuretic until patient euvolemic Check UA CS, Cefepime for now Stool C. difficile Flagyl for presumptive C. difficile given sepsis criteria, oral vancomycin if C. difficile positive Replace electrolytes Check hemoglobin A1c DVT prophylaxis. Heparin subcu Full code Text document was generated using [employer] voice recognition software. It may contain grammatical or spelling errors. Kindly contact undersigned for clarification of any documentation item in question. History of Present Illness Chief Complaint: Nausea, vomiting, diarrhea Primary Care Provider: Gregory Garcia DO SurgeryHistory obtained from patient and records. Medical history significant for chronic systolic heart failure secondary to nonischemic cardiomyopathy (EF 20%, TTE 2019) status post ICD, history of PVCs, CRI (baseline creatinine 1.5 ), chronic anemia (baseline hemoglobin of 11), anxiety/mood disorder. Last confinement February 2020 for decompensated heart failure. 2 weeks history of nausea, vomiting, watery diarrhea symptoms without abdominal pain/headache complaints as per patient. No recent antibiotics/no known sick contacts/no recent out-of-town travel/no new restaurants. Patient unable to take home medications because of symptoms. Patient denies chest pain, S OB, cough symptoms. Patient brought to the ER for evaluation. Medical History as above Surgical History : Bunion surgery, sinus surgery, PERFECTO, oophorectomy Family History : DM, heart disease Personal/Social history : Non-smoker, no EtOH intake, disabled Allergies Allergy/AdvReac Type Severity Reaction Status Date / Time Sulfa (Sulfonamide Allergy Intermediate HIVES Verified 08/12/20 00:43 Antibiotics) Home Medications Medication Instructions Recorded Confirmed Type Premarin 0.3 mg PO Q4D 02/25/20 08/12/20 History aspirin 81 mg PO DAILY 02/25/20 08/12/20 History lorazepam 1 mg PO TID PRN 02/25/20 08/12/20 History baclofen 20 mg PO BID 05/07/20 08/12/20 History lisinopril 5 mg PO DAILY 05/07/20 08/12/20 History metoprolol succinate 50 mg PO DAILY 05/07/20 08/12/20 History ondansetron HCl [Zofran] 4 mg PO Q6H PRN 05/07/20 08/12/20 History sertraline [Zoloft] 100 mg PO DAILY 05/07/20 08/12/20 History spironolactone 12.5 mg PO DAILY 05/07/20 08/12/20 History valacyclovir [Valtrex] 1,000 mg PO DAILY 05/07/20 08/12/20 History Past Med/Surg History Medical History Anxiety Bipolar 1 disorder 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 If EF remains <35% despite optimal medical therapy then would recommend ICD Migraine Palpitations Surgical History History of ankle surgery History of bunionectomy History of cholecystectomy History of surgery on left wrist History of total abdominal hysterectomy and bilateral salpingo-oophorectomy Family History Father CHF (congestive heart failure) Other Diabetes Social History Smoking Status: Never smoker Hx Alcohol Use: No Hx Substance Use: Yes Preferred Language: Divehi Communication Ability: Effective Director Stars Required: No Beliefs That Will Affect Care: None marital status: Single Current Living Situation: Alone Current Living Situation Comment: self and guinea pig current occupation: retired Feels Safe at Home: Yes Assistive Devices: None Review of Systems Review of Systems: As per HPI, all 10 systems reviewed, all other ROS negative Physical Exam Physical Exam: GENERAL: Slightly uncomfortable, apathetic, no respiratory distress, covered with blankets SKIN: Pallor , warm HEENT: Pale palpebral conjunctivae, no ptosis, dry buccal mucosa NECK : Supple, no tenderness CHEST : CTA, no tenderness HEART : Tachycardic, diminished S1-S2 ABDOMEN: Some distention, nontender EXTREMITIES : No LE swelling/tenderness, no other conspicuous deformities noted NEUROLOGIC : Coherent, no facial asymmetry, no other gross focality Results & Data Results & Data ([facility]) Vital Signs (Past 12 Hours) Vital Signs Temp Pulse Resp BP Pulse Ox 08/12/20 02:30 103 H 22 100/58 L 95 08/12/20 02:29 106 H 24 95 08/12/20 02:25 103 H 22 94 08/12/20 02:16 95 H 17 93 08/12/20 02:15 108 H 26 H 72/48 L 91 08/12/20 02:10 109 H 21 77/40 L 94 08/12/20 02:00 105 H 17 78/45 L 96 08/12/20 01:52 106 H 19 89 L 08/12/20 01:18 113 H 15 89/54 L 93 08/12/20 01:15 115 H 16 94 08/12/20 01:00 108 H 18 93 08/12/20 00:45 109 H 18 91 08/12/20 00:30 105 H 17 90 08/12/20 00:15 108 H 13 94 08/12/20 00:00 103 H 12 92 08/11/20 23:48 96 08/11/20 23:45 107 H 18 93 08/11/20 23:43 107 H 15 94 08/11/20 23:40 106 H 16 92/58 L 97 08/11/20 23:36 36.8 C 107 H 16 92/58 L 96 Laboratory Results Laboratory Results WBC 13.55 K/uL (4.8-10.8) H 08/11/20 23:51 RBC 3.60 M/uL (4.2-5.4) L 08/11/20 23:51 Hgb 11.1 g/dL (12.0-16.0) L 08/11/20 23:51 Hct 32.4 % (37-47) L 08/11/20 23:51 MCV 90.0 fL (80-100) 08/11/20 23:51 MCH 30.8 pg (25-34) 08/11/20 23:51 MCHC 34.3 g/dL (32-36) 08/11/20 23:51 RDW Std Deviation 47.2 fL (36.4-46.3) H 08/11/20 23:51 RDW Coeff of Rei 14.2 % (11.5-14.5) 08/11/20 23:51 Plt Count 95 K/uL (130-400) L 08/11/20 23:51 MPV 12.4 fL (7.4-10.4) H 08/11/20 23:51 Immature Gran % (Auto) 0.2 % 08/11/20 23:51 Neut % (Auto) 90.2 % 08/11/20 23:51 Lymph % (Auto) 6.2 % 08/11/20 23:51 Carlton % (Auto) 3.2 % 08/11/20 23:51 Eos % (Auto) 0.1 % 08/11/20 23:51 Baso % (Auto) 0.1 % 08/11/20 23:51 Neut # (Auto) 12.23 K/uL (1.4-6.5) H 08/11/20 23:51 Lymph # (Auto) 0.84 K/uL (1.2-3.4) L 08/11/20 23:51 Carlton # (Auto) 0.43 K/uL (0.11-0.59) 08/11/20 23:51 Eos # (Auto) 0.01 K/uL (0-0.5) 08/11/20 23:51 Baso # (Auto) 0.01 K/uL (0-0.2) 08/11/20 23:51 Immature Gran # (Auto) 0.03 K/uL (0.00-0.02) H 08/11/20 23:51 Platelet Estimate Decreased (Normal) L 08/11/20 23:51 RBC Morphology Unremarkable 08/11/20 23:51 Sodium 137 mmol/L (136-145) 08/11/20 23:51 Potassium 3.1 mmol/L (3.5-5.1) L 08/11/20 23:51 Chloride 102 mmol/L (98-107) 08/11/20 23:51 Carbon Dioxide 27 mmol/L (21-32) 08/11/20 23:51 Anion Gap 8.0 (3-11) 08/11/20 23:51 BUN 15 mg/dl (7-18) 08/11/20 23:51 Creatinine 1.49 mg/dl (0.6-1.2) H 08/11/20 23:51 Est Cr Clr Drug Dosing 40.0 ml/min 08/11/20 23:51 Est GFR ( Amer) 42.9 ml/min 08/11/20 23:51 Est GFR (Non-Af Amer) 37.0 ml/min 08/11/20 23:51 BUN/Creatinine Ratio 10.1 (10-20) 08/11/20 23:51 Glucose 129 mg/dl (70-99) H 08/11/20 23:51 Lactate 2.3 mmol/L (0.4-2.0) H* 08/12/20 01:18 Calcium 8.1 mg/dl (8.5-10.1) L 08/11/20 23:51 Magnesium 1.8 mg/dl (1.8-2.4) 08/11/20 23:51 Total Bilirubin 0.9 mg/dl (0.2-1) 08/11/20 23:51 AST 19 U/L (15-37) 08/11/20 23:51 ALT 10 U/L (12-78) L 08/11/20 23:51 Alkaline Phosphatase 110 U/L (45-117) 08/11/20 23:51 Total Creatine Kinase 14 U/L (26-192) L 08/11/20 23:51 CK-MB (CK-2) < 1.0 ng/ml (0.5-3.6) 08/11/20 23:51 CK/CKMB % Calc TNP 08/11/20 23:51 Troponin I < 0.015 ng/ml (0-0.045) 08/11/20 23:51 Total Protein 6.2 gm/dl (6.4-8.2) L 08/11/20 23:51 Albumin 2.2 gm/dl (3.4-5.0) L 08/11/20 23:51 Globulin 4.0 gm/dl (2.5-4.0) 08/11/20 23:51 Albumin/Globulin Ratio 0.6 (0.9-2) L 08/11/20 23:51 Procalcitonin 5.75 ng/ml (0-0.5) H 08/11/20 23:51 TSH 4.090 uIu/ml (0.300-4.500) 08/11/20 23:51 COVID-19 Eval Order Covid19 at [facility] 08/12/20 01:20 SARS-CoV-2 (PCR) NEGATIVE (Negative) 08/12/20 01:[address] head initial read: CT abdomen pelvis initial read: Moderate cardiomegaly is noted with pacing leads in place. Previous cholecystectomy. No biliary duct dilation is seen. There are scattered gas fluid levels in fluid-filled distended but nondilated large and small bowel loops suggesting ileus or gastroenteritis. The appendix is normal. No focal krupa wel wall inflammation is seen. The pancreas, spleen, adrenal glands, and kidneys appear within normal limits. The uterus has been removed for the urinary bladder appears unremarkable. Mild degenerative changes in the lower lumbar spine. No acute fracture or subluxation. Chest x-ray as per my interpretation cardiomegaly, elevated right hemidiaphragm EKG as per my interpretation : Rate 110, paced rhythm
[2020-08-12] MEDS ORDERED: metroNIDAZOLE 500 MG/100 ML BAG IV STA (02:38)
[2020-08-12] MEDS ORDERED: metroNIDAZOLE 500 MG/100 ML BAG IV ONE (02:45)
[2020-08-12] MEDS ORDERED: POTASSIUM CHLORIDE 40 MEQ in LACTATED RINGER'S 1,000 ML IV ONE (02:45)
[2020-08-12] MEDS ORDERED: CEFEPIME 2,000 MG/20 ML VIAL IV STA (02:52)
[2020-08-12] MEDS ORDERED: MAGNESIUM SULFATE / D5W 1 GM/100 ML BAG IV ONE (02:55)
[2020-08-12] MEDS ORDERED: DAPTOmycin 1 MG in SYRINGE 0 ML IV ONE (04:56)
[2020-08-12] MEDS ORDERED: DAPTOmycin 350 MG in SYRINGE 0 ML IV ONE (05:30)
[2020-08-12] MEDS ORDERED: ACETAMINOPHEN 325 MG TAB PO PRN ×2 (06:51)
[2020-08-12] MEDS ORDERED: CEFEPIME CONSULT ACTIVE PRN (06:51)
[2020-08-12] MEDS ORDERED: traMADol HCL 50 MG TABLET PO PRN (06:51)
[2020-08-12] MEDS ORDERED: PROMETHAZINE HCL 12.5 MG in SODIUM CHLORIDE 0.9% 50 ML IV PRN (06:51)
--- NOTE | 2020-08-12 07:01 | CT Scan Report ---
CT head/brain wo con CLINICAL HISTORY: 65 years-old Female with Pt c/o emesis. Acute headache with vomiting TECHNIQUE: Multiple axial CT images of the head were obtained without contrast. A dose lowering tech nique was utilized adhering to the principles of ALARA. CT DOSE: 537.48 mGy.cm COMPARISON: None. FINDINGS: No acute intracranial hemorrhage, midline shift, intracranial mass, hydrocephalus, territorial ischem ia or abnormal extra-axial collection. Age-related involutional changes. Cerebral vascular calcificat ions. The calvarium is intact. The paranasal sinuses, mastoid air cells, and middle ear cavities are clear . IMPRESSION: No acute intracranial abnormality. ACT 112: Negative or not required by law. The above report was generated using voice recognition software. It may contain grammatical, syntax o r spelling errors. Electronically signed by: Issa Morales M.D. 08/12/2020 6:59 AM
[2020-08-12] MEDS ORDERED: LORazepam 1 MG TAB PO PRN (07:07)
[2020-08-12 07:10] LABS: BUN Creatinine Ratio 11.5 (10-20); Calcium 7.7 mg/dl (8.5-10.1); Creatinine Clr Calc Pharmacy 49.3 ml/min; Est GFR (African American) 55.1 ml/min; Est GFR (Non-African American) 47.6 ml/min
[2020-08-12 07:51] LABS: Hematocrit (blood only) 27.6 % (37-47); Hemoglobin 9.4 g/dL (12.0-16.0); Mean Corpuscular Hemoglobin 30.9 pg (25-34); Mean Corpuscular Hgb Conc 34.1 g/dL (32-36); Mean Corpuscular Volume 90.8 fL (80-100); Mean Platelet Volume 12.9 fL (7.4-10.4); Platelet Count 89 K/uL (130-400); RDW Coefficient of Variation 14.3 % (11.5-14.5); RDW Standard Deviation 47.6 fL (36.4-46.3); Red Blood Count 3.04 M/uL (4.2-5.4); White Blood Count 18.59 K/uL (4.8-10.8)
[2020-08-12 07:52] LABS: Basophils # (auto) 0.02 K/uL (0-0.2); Basophils % (auto) 0.1 %; Immature Granulocytes # (auto) 0.06 K/uL (0.00-0.02); Immature Granulocytes % (auto) 0.3 %; Lymphocytes # (auto) 1.65 K/uL (1.2-3.4); Lymphocytes % (auto) 8.9 %; Monocytes # (auto) 0.77 K/uL (0.11-0.59); Monocytes % (auto) 4.1 %; Neutrophils # (auto) 16.09 K/uL (1.4-6.5); Neutrophils % (auto) 86.6 %; Platelet Estimate Decreased (Normal); Toxic Granulation 1+
--- NOTE | 2020-08-12 08:05 | CT Scan Report ---
CT abd pelvis IV con only CLINICAL HISTORY: Vomiting. Abdominal pain. COMPARISON STUDY: None. TECHNIQUE: The patient was scanned in a dynamic helical fashion during intravenous administration of 91 cc of Optiray 320 A dose lowering technique was utilized adhering to the principles of ALARA. CT DOSE: 530.50 mGy.cm FINDINGS: Lower chest: The heart is enlarged. There is a bilobed/tubular 7 mm left lower lobe nodule. Liver: There are scattered hypodense hepatic lesions, the largest of which measures 14 mm. Although n onspecific these likely represent cysts. Gallbladder: Surgically absent Spleen: Mildly enlarged measuring 13 cm Pancreas: Unremarkable. Adrenal glands: Unremarkable. Kidneys: No solid renal masses are visualized. There is a subcentimeter left renal cyst. There is no hydronephrosis. Bowel: There are no transition zones to indicate bowel obstruction. There is no evidence of acute div erticulitis. The appendix appears normal. There are multiple fluid-filled small bowel and colonic loo ps with scattered air-fluid levels. This nonspecific finding which could indicate an ileus or enterit is. Peritoneum: There is no intraperitoneal free air or abdominal ascites. Vasculature: The abdominal aorta is normal in course and caliber. Adenopathy: None. Pelvic viscera: The uterus is surgically absent. Skeletal structures: No destructive osseous lesions are seen. IMPRESSION: 1. No evidence of bowel obstruction. No evidence of free air 2. Fluid-filled small bowel and colonic loops with scattered air-fluid levels. This a nonspecific fin ding which could indicate an ileus or enteritis. 3. Normal appendix. No evidence of acute diverticulitis 4. Surgically absent gallbladder and uterus 5. Mild splenomegaly 6. Small hiatal hernia 7. 7 mm bilobed/tubular left lower lobe pulmonary nodule. 6 month follow-up is recommended per Fleisc hner criteria. Please refer to below summary of Fleischner criteria recommendations for follow-up of incidental CT n odules (Bibi Ray, Guidelines for management of small pulmonary nodules detected on CT scans: A sta tement from the Fleischner Society, Radiology 237: [phone].) SOLID NODULES Solitary nodule size: <6 mm * low risk patients: no follow-up needed * high risk patients: optional CT at 12 months Solitary nodule size: 6-8 mm * low risk patients: follow-up at 6-12 months, then consider further follow-up at 18-24 months * high risk patients: initial follow-up CT at 6-12 months and then at 18-24 months if no change Solitary nodule size: >8 mm * either low or high risk patients - consider follow-up CT at 3 months, and/or CT-PET, and/or biopsy Multiple nodules size: <6 mm * low risk patients: no routine follow-up * high risk patients: optional CT at 12 months Multiple nodules size: 6-8 mm * low risk patients: follow-up at 3-6 months, then consider further follow-up at 18-24 months * high risk patients: follow-up at 3-6 months, then at 18-24 months if no change Multiple nodules size: >8 mm * low risk patients: follow-up at 3-6 months, then consider further follow-up at 18-24 months * high risk patients: follow-up at 3-6 months, then at 18-24 months if no change Note: newly detected indeterminate nodule in persons 35 years of age or older. * low risk patients: minimal or absent history of smoking and/or other known risk factors * high risk patients: history of smoking or of other known risk factors (e.g. first degree relative with lung cancer, or exposure to asbestos, radon, uranium) * if a nodule up to 8 mm is partly solid or is ground glass further follow-up is required after 24 m onths to exclude possible slow growing adenocarcinoma (ELSA) SUBSOLID NODULES Solitary pure ground-glass nodule * nodule size <6 mm - no CT follow-up required * nodule size >=6 mm - follow-up CT at 6-12 months, then every 2 years until 5 years Solitary part-solid nodule * nodule size <6 mm - no CT follow-up required * nodule size >=6 mm - follow-up CT at 3-6 months. If unchanged, and solid component remains <6 mm, then annual follow-up for 5 years Multiple subsolid nodules * nodule size <6 mm - follow-up CT at 3-6 months, consider further follow-up at 2 and 4 years if sta ble * nodule size >=6 mm - follow-up CT at 3-6 months, subsequent management based on the most suspiciou s nodule(s) ACT 112: Positive. There are findings on this exam that require communication between the performing entity and the patient following Patient Test Result Information Act ([place] Act 112) guidelines. Electronically signed by: Wang Hernandez M.D. 08/12/2020 8:03 AM
--- NOTE | 2020-08-12 08:14 | XRay Report ---
XR chest 1V portable CLINICAL HISTORY: Hypotension. COMPARISON STUDY: Chest radiograph May 07, 2020. FINDINGS: Lung volumes are normal. There is no pneumothorax or pleural effusion. A left subclavian bi ventricular pacer/AICD is in place. There is cardiomegaly. There is pulmonary vascular congestion wit hout overt pulmonary edema. IMPRESSION: Cardiomegaly with pulmonary vascular congestion. ACT 112: Negative or not required by law. Electronically signed by: Joni Portillo M.D. 08/12/2020 8:12 AM
[2020-08-12] MEDS: BACLOFEN 20 MG TAB PO SCH ×2 (08:35→22:46)
[2020-08-12] MEDS: SERTRALINE HCL 100 MG TABLET PO SCH (08:39)
[2020-08-12] MEDS: ASPIRIN 81 MG ECTAB PO SCH (08:39)
[2020-08-12] MEDS: valACYclovir HCL 500 MG TABLET PO SCH (08:39)
[2020-08-12] MEDS ORDERED: SODIUM CHLORIDE 0.9% 1000ML 250 ML IV ONE (08:46)
[2020-08-12] MEDS ORDERED: lisinopril 5 MG TAB PO SCH (09:00)
[2020-08-12] MEDS ORDERED: METOPROLOL SUCC 50MG EXT REL TAB PO SCH (09:00)
[2020-08-12] MEDS ORDERED: METOPROLOL SUCC 25MG EXT REL TAB PO SCH (09:00)
--- NOTE | 2020-08-12 11:18 | Communication Note ---
Date of Service: August 12, 2020 Patient was seen and examined this morning. Awake, alert and oriented x3. Denies any further episodes of nausea, vomiting or any diarrhea. Denies any abdominal pain or dysuria. Denies any chest pain or shortness of breath. Currently review of system is mainly negative. For the time being we will continue with the cefepime, Flagyl and daptomycin. Blood cultures are pending. C. difficile is also pending. Systolic blood pressure on the soft side. Patient's SBP on the low side, states her systolic is usually in the 90s. Continue with maintenance IV fluids. Stop MEDICAL OR SURGICAL INSTRUMENT MAKER lisinopril and Lopressor for now.
[2020-08-12] MEDS: metroNIDAZOLE 500 MG/100 ML BAG IV SCH ×2 (12:14→18:22)
[2020-08-12 12:32] LABS: Appearance Urine Clear (Clear); Bilirubin Urine Negative (Negative); Blood Urine Negative (Negative); Color Urine Yellow; Glucose Urine UA Negative (Negative); Ketones Urine Negative (Negative); Leukocyte Esterase Urine Negative (Negative); Nitrite Urine Negative (Negative); Protein Urine Negative (Negative); Specific Gravity Urine > 1.045 (1.000-1.030); Urobilinogen Urine Negative (Negative)
[2020-08-12] MEDS ORDERED: ICU PROTOCOL FOR HYPERGLYCEMIA PRN (17:49)
[2020-08-12] MEDS ORDERED: STAT IV Infusion **Titration per Protocol STA (17:49)
--- NOTE | 2020-08-12 17:59 | Critical Care Consultation ---
Date of Consultation August 12, 2020 Assessment & Plan (1) Severe sepsis: Reason Critically Ill: 65-year-old female with gram-positive bacteremia and severe sepsis PLAN: Neuro: History of bipolar disorder -Continue home medications CV: Idiopathic cardiomyopathy -Echo to review ejection fraction as well as possible endocarditis Hypotension -Lactic acid has resolved however I believe a short course of vasoactive's to augment forward flow given her kidney injury would be prudent Fluids/Renal: Acute kidney injury -Maintenance fluids to continue ID: Severe sepsis: With endorgan damage of acute kidney injury Gram-positive bacteremia -Continue daptomycin GI/Nutrition: Liquid diet Diarrhea: Resolved -Stool culture and C. difficile pending Heme: Anemia DVT prophylaxis: Lovenox 40 mg daily Endocrine: ICU hyperglycemia protocol Vascular access: Peripheral IVs Code Status: Full code Disposition: ICU (2) Acute kidney failure: (3) Idiopathic cardiomyopathy: Supervising Physician Co-Signing Physician Notes I have personally spent 60 minutes of critical care time in the direct management of this patient. This is a life/limb threatening event. This includes time spent evaluating patient, direct bedside care, chart review, placing orders, interpretation of diagnostic studies, discussion with consultants, patient, and/or family members regarding treatment decisions, as well as other required patient management activities. This time is exclusive of all separately billable procedures, and teaching time and separate from and in addition to any other critical care service time. History of Present Illness Reason for Consultation: Severe sepsis Requesting Physician: Tita Combs MD Attending Physician: Tita Combs MD History of Present Illness Patient is a 65-year-old female with past medical history of idiopathic cardiomyopathy status post pacemaker who presented to the emergency department after 2-week history of nausea vomiting and diarrhea. She has remained alert and oriented despite having low blood pressures. During my evaluation she reports that the lowest her blood pressure has been is 70/50 after the inserted her pacemaker, she reports her blood pressure is normally in the 90s systolic currently she feels fine denies chest pain or shortness of breath she feels improved from when she arrived in the emergency department yesterday. Allergies Allergy/AdvReac Type Severity Reaction Status Date / Time Sulfa (Sulfonamide Allergy Intermediate HIVES Verified 08/12/20 00:43 Antibiotics) Home Medications Medication Instructions Recorded Confirmed Type Premarin 0.3 mg PO Q4D 02/25/20 08/12/20 History aspirin 81 mg PO DAILY 02/25/20 08/12/20 History lorazepam 1 mg PO TID PRN 02/25/20 08/12/20 History baclofen 20 mg PO BID 05/07/20 08/12/20 History lisinopril 5 mg PO DAILY 05/07/20 08/12/20 History metoprolol succinate 50 mg PO DAILY 05/07/20 08/12/20 History ondansetron HCl [Zofran] 4 mg PO Q6H PRN 05/07/20 08/12/20 History sertraline [Zoloft] 100 mg PO DAILY 05/07/20 08/12/20 History spironolactone 12.5 mg PO DAILY 05/07/20 08/12/20 History valacyclovir [Valtrex] 1,000 mg PO DAILY 05/07/20 08/12/20 History Patient History Medical History Anxiety Bipolar 1 disorder 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 If EF remains <35% despite optimal medical therapy then would recommend ICD Migraine Palpitations Surgical History History of ankle surgery History of bunionectomy History of cholecystectomy History of surgery on left wrist History of total abdominal hysterectomy and bilateral salpingo-oophorectomy Family History Father CHF (congestive heart failure) Other Diabetes Social History Smoking Status: Never smoker Hx Alcohol Use: No Hx Substance Use: Yes Preferred Language: Lao Communication Ability: Effective Glass Handler Required: No Beliefs That Will Affect Care: None marital status: Single Current Living Situation: Alone Current Living Situation Comment: self and guinea pig current occupation: retired Other Information That Helps Us Care for You: No Feels Safe at Home: Yes Safety Concerns: Feels Safe At This Time Assistive Devices: None Review of Systems Review of Systems: All systems reviewed & are unremarkable except as noted in HPI & below Physical Exam Physical Exam: General: Alert. nontoxic. Skin: Warm, dry, Head: Atraumatic Ears, nose, mouth and throat: airway patent Cardiovascular: Normal peripheral perfusion Respiratory: no respiratory distress Gastrointestinal: Non distended Musculoskeletal: No deformity Results & Data Results & Data ([facility]) Vital Signs (Past 12 Hours) Vital Signs Temp Pulse Resp BP BP Pulse Ox 08/12/20 15:13 37.0 C 85 20 79/50 L 95 08/12/20 12:13 36.7 C 88 18 81/57 L 92 08/12/20 07:47 61/37 L 84/58 L 08/12/20 07:30 37.0 C 98 H 20 96 08/12/20 06:30 37.5 C 66 18 90/59 L 95 Laboratory Results 08/12/20 08/12/20 08/12/20 Range/Units 11:51 06:37 06:37 WBC (4.8-10.8) K/uL RBC (4.2-5.4) M/uL Hgb (12.0-16.0) g/dL Hct (37-47) % MCV (80-100) fL MCH (25-34) pg MCHC (32-36) g/dL RDW Std Deviation (36.4-46.3) fL RDW Coeff of Rei (11.5-14.5) % Plt Count (130-400) K/uL MPV (7.4-10.4) fL Immature Gran % (Auto) % Neut % (Auto) % Lymph % (Auto) % [place] % (Auto) % Eos % (Auto) % Baso % (Auto) % Neut # (Auto) (1.4-6.5) K/uL Lymph # (Auto) (1.2-3.4) K/uL Norman # (Auto) (0.11-0.59) K/uL Eos # (Auto) (0-0.5) K/uL Baso # (Auto) (0-0.2) K/uL Immature Gran # (Auto) (0.00-0.02) K/uL Toxic Granulation Platelet Estimate (Normal) RBC Morphology Sodium 137 (136-145) mmol/L Potassium 4.0 D (3.5-5.1) mmol/L Chloride 108 H (98-107) mmol/L Carbon Dioxide 23 (21-32) mmol/L Anion Gap 7.0 (3-11) BUN 14 (7-18) mg/dl Creatinine 1.21 H (0.6-1.2) mg/dl Est Cr Clr Drug Dosing 49.3 ml/min Est GFR ( Amer) 55.1 ml/min Est GFR (Non-Af Amer) 47.6 ml/min BUN/Creatinine Ratio 11.5 (10-20) Glucose 125 H (70-99) mg/dl Lactate 1.3 (0.4-2.0) mmol/L Calcium 7.7 L (8.5-10.1) mg/dl Magnesium (1.8-2.4) mg/dl Total Bilirubin (0.2-1) mg/dl AST (15-37) U/L ALT (12-78) U/L Alkaline Phosphatase (45-117) U/L Total Creatine Kinase (26-192) U/L CK-MB (CK-2) (0.5-3.6) ng/ml CK/CKMB % Calc Troponin I (0-0.045) ng/ml Total Protein (6.4-8.2) gm/dl Albumin (3.4-5.0) gm/dl Globulin (2.5-4.0) gm/dl Albumin/Globulin Ratio (0.9-2) Procalcitonin (0-0.5) ng/ml TSH (0.300-4.500) uIu/ml Urine Color Yellow Urine Appearance Clear (Clear) Urine pH 6.0 (4.5-7.5) Ur Specific [place] > 1.045 H (1.000-1.030) Urine Protein Negative (Negative) Urine Glucose (UA) Negative (Negative) Urine Ketones Negative (Negative) Urine Blood Negative (Negative) Urine Nitrite Negative (Negative) Urine Bilirubin Negative (Negative) Urine Urobilinogen Negative (Negative) Ur Leukocyte Esterase Negative (Negative) COVID-19 Eval Order SARS-CoV-2 (PCR) (Negative) 08/12/20 08/12/20 08/12/20 Range/Units 06:37 01:20 01:20 WBC 18.59 H (4.8-10.8) K/uL RBC 3.04 L (4.2-5.4) M/uL Hgb 9.4 L (12.0-16.0) g/dL Hct 27.6 L (37-47) % MCV 90.8 (80-100) fL MCH 30.9 (25-34) pg MCHC 34.1 (32-36) g/dL RDW Std Deviation 47.6 H (36.4-46.3) fL RDW Coeff of Rei 14.3 (11.5-14.5) % Plt Count 89 L (130-400) K/uL MPV 12.9 H (7.4-10.4) fL Immature Gran % (Auto) 0.3 % Neut % (Auto) 86.6 % Lymph % (Auto) 8.9 % Norman % (Auto) 4.1 % Eos % (Auto) 0.0 % Baso % (Auto) 0.1 % Neut # (Auto) 16.09 H (1.4-6.5) K/uL Lymph # (Auto) 1.65 (1.2-3.4) K/uL Norman # (Auto) 0.77 H (0.11-0.59) K/uL Eos # (Auto) 0.00 (0-0.5) K/uL Baso # (Auto) 0.02 (0-0.2) K/uL Immature Gran # (Auto) 0.06 H (0.00-0.02) K/uL Toxic Granulation 1+ Platelet Estimate Decreased L (Normal) RBC Morphology Sodium (136-145) mmol/L Potassium (3.5-5.1) mmol/L Chloride (98-107) mmol/L Carbon Dioxide (21-32) mmol/L Anion Gap (3-11) BUN (7-18) mg/dl Creatinine (0.6-1.2) mg/dl Est Cr Clr Drug Dosing ml/min Est GFR ( Amer) ml/min Est GFR (Non-Af Amer) ml/min BUN/Creatinine Ratio (10-20) Glucose (70-99) mg/dl Lactate (0.4-2.0) mmol/L Calcium (8.5-10.1) mg/dl Magnesium (1.8-2.4) mg/dl Total Bilirubin (0.2-1) mg/dl AST (15-37) U/L ALT (12-78) U/L Alkaline Phosphatase (45-117) U/L Total Creatine Kinase (26-192) U/L CK-MB (CK-2) (0.5-3.6) ng/ml CK/CKMB % Calc Troponin I (0-0.045) ng/ml Total Protein (6.4-8.2) gm/dl Albumin (3.4-5.0) gm/dl Globulin (2.5-4.0) gm/dl Albumin/Globulin Ratio (0.9-2) Procalcitonin (0-0.5) ng/ml TSH (0.300-4.500) uIu/ml Urine Color Urine Appearance (Clear) Urine pH (4.5-7.5) Ur Specific [place] (1.000-1.030) Urine Protein (Negative) Urine Glucose (UA) (Negative) Urine Ketones (Negative) Urine Blood (Negative) Urine Nitrite (Negative) Urine Bilirubin (Negative) Urine Urobilinogen (Negative) Ur Leukocyte Esterase (Negative) COVID-19 Eval Order Covid19 at [facility] SARS-CoV-2 (PCR) NEGATIVE (Negative) 08/12/20 08/11/20 08/11/20 Range/Units 01:18 23:51 23:51 WBC (4.8-10.8) K/uL RBC (4.2-5.4) M/uL Hgb (12.0-16.0) g/dL Hct (37-47) % MCV (80-100) fL MCH (25-34) pg MCHC (32-36) g/dL RDW Std Deviation (36.4-46.3) fL RDW Coeff of Rei (11.5-14.5) % Plt Count (130-400) K/uL MPV (7.4-10.4) fL Immature Gran % (Auto) % Neut % (Auto) % Lymph % (Auto) % Norman % (Auto) % Eos % (Auto) % Baso % (Auto) % Neut # (Auto) (1.4-6.5) K/uL Lymph # (Auto) (1.2-3.4) K/uL Norman # (Auto) (0.11-0.59) K/uL Eos # (Auto) (0-0.5) K/uL Baso # (Auto) (0-0.2) K/uL Immature Gran # (Auto) (0.00-0.02) K/uL Toxic Granulation Platelet Estimate (Normal) RBC Morphology Sodium 137 (136-145) mmol/L Potassium 3.1 L (3.5-5.1) mmol/L Chloride 102 (98-107) mmol/L Carbon Dioxide 27 (21-32) mmol/L Anion Gap 8.0 (3-11) BUN 15 (7-18) mg/dl Creatinine 1.49 H (0.6-1.2) mg/dl Est Cr Clr Drug Dosing 40.0 ml/min Est GFR ( Amer) 42.9 ml/min Est GFR (Non-Af Amer) 37.0 ml/min BUN/Creatinine Ratio 10.1 (10-20) Glucose 129 H (70-99) mg/dl Lactate 2.3 H* (0.4-2.0) mmol/L Calcium 8.1 L (8.5-10.1) mg/dl Magnesium 1.8 (1.8-2.4) mg/dl Total Bilirubin 0.9 (0.2-1) mg/dl AST 19 (15-37) U/L ALT 10 L (12-78) U/L Alkaline Phosphatase 110 (45-117) U/L Total Creatine Kinase 14 L (26-192) U/L CK-MB (CK-2) < 1.0 (0.5-3.6) ng/ml CK/CKMB % Calc TNP Troponin I < 0.015 (0-0.045) ng/ml Total Protein 6.2 L (6.4-8.2) gm/dl Albumin 2.2 L (3.4-5.0) gm/dl Globulin 4.0 (2.5-4.0) gm/dl Albumin/Globulin Ratio 0.6 L (0.9-2) Procalcitonin 5.75 H (0-0.5) ng/ml TSH 4.090 (0.300-4.500) uIu/ml Urine Color Urine Appearance (Clear) Urine pH (4.5-7.5) Ur Specific [place] (1.000-1.030) Urine Protein (Negative) Urine Glucose (UA) (Negative) Urine Ketones (Negative) Urine Blood (Negative) Urine Nitrite (Negative) Urine Bilirubin (Negative) Urine Urobilinogen (Negative) Ur Leukocyte Esterase (Negative) COVID-19 Eval Order SARS-CoV-2 (PCR) (Negative) 08/11/20 Range/Units 23:51 WBC 13.55 H (4.8-10.8) K/uL RBC 3.60 L (4.2-5.4) M/uL Hgb 11.1 L (12.0-16.0) g/dL Hct 32.4 L (37-47) % MCV 90.0 (80-100) fL MCH 30.8 (25-34) pg MCHC 34.3 (32-36) g/dL RDW Std Deviation 47.2 H (36.4-46.3) fL RDW Coeff of Rei 14.2 (11.5-14.5) % Plt Count 95 L (130-400) K/uL MPV 12.4 H (7.4-10.4) fL Immature Gran % (Auto) 0.2 % Neut % (Auto) 90.2 % Lymph % (Auto) 6.2 % Norman % (Auto) 3.2 % Eos % (Auto) 0.1 % Baso % (Auto) 0.1 % Neut # (Auto) 12.23 H (1.4-6.5) K/uL Lymph # (Auto) 0.84 L (1.2-3.4) K/uL Norman # (Auto) 0.43 (0.11-0.59) K/uL Eos # (Auto) 0.01 (0-0.5) K/uL Baso # (Auto) 0.01 (0-0.2) K/uL Immature Gran # (Auto) 0.03 H (0.00-0.02) K/uL Toxic Granulation Platelet Estimate Decreased L (Normal) RBC Morphology Unremarkable Sodium (136-145) mmol/L Potassium (3.5-5.1) mmol/L Chloride (98-107) mmol/L Carbon Dioxide (21-32) mmol/L Anion Gap (3-11) BUN (7-18) mg/dl Creatinine (0.6-1.2) mg/dl Est Cr Clr Drug Dosing ml/min Est GFR ( Amer) ml/min Est GFR (Non-Af Amer) ml/min BUN/Creatinine Ratio (10-20) Glucose (70-99) mg/dl Lactate (0.4-2.0) mmol/L Calcium (8.5-10.1) mg/dl Magnesium (1.8-2.4) mg/dl Total Bilirubin (0.2-1) mg/dl AST (15-37) U/L ALT (12-78) U/L Alkaline Phosphatase (45-117) U/L Total Creatine Kinase (26-192) U/L CK-MB (CK-2) (0.5-3.6) ng/ml CK/CKMB % Calc Troponin I (0-0.045) ng/ml Total Protein (6.4-8.2) gm/dl Albumin (3.4-5.0) gm/dl Globulin (2.5-4.0) gm/dl Albumin/Globulin Ratio (0.9-2) Procalcitonin (0-0.5) ng/ml TSH (0.300-4.500) uIu/ml Urine Color Urine Appearance (Clear) Urine pH (4.5-7.5) Ur Specific [place] (1.000-1.030) Urine Protein (Negative) Urine Glucose (UA) (Negative) Urine Ketones (Negative) Urine Blood (Negative) Urine Nitrite (Negative) Urine Bilirubin (Negative) Urine Urobilinogen (Negative) Ur Leukocyte Esterase (Negative) COVID-19 Eval Order SARS-CoV-2 (PCR) (Negative) Coding Level of Care Code Critical Care 1st 30-74 mins Diagnoses Severe sepsis A41.9; R65.20 Acute kidney failure N17.9 Acute renal failure type: unspecified Idiopathic cardiomyopathy I42.8 (1) Acute kidney failure Acute renal failure type: unspecified Qualified Code(s): N17.9 - Acute kidney failure, unspecified
[2020-08-12] MEDS ORDERED: NOREPINEPHRINE/D5W 8 MG/508 ML BAG IV SCH (18:00)
[2020-08-12] MEDS ORDERED: CEFEPIME 2,000 MG in SYRINGE 0 ML IV SCH (18:00)
[2020-08-12] MEDS ORDERED: NORMOSOL-R 500 ML IV ONE (19:37)
[2020-08-12] MEDS ORDERED: ALBUMIN 5% 250 ML IV ONE (19:37)
--- NOTE | 2020-08-13 04:39 | Emergency Department Note ---
Impression & Plan Dehydration, Acute hypotension ED Provider Note NAME: JEFFY HENNESSY AGE: 65 SEX: F : 1955 ARRIVES VIA: Ambulance INFORMANT: Patient, EMS ED PROVIDER(S): Willem Salazar MD CHIEF COMPLAINT: Nausea, vomiting, diarrhea HPI: This 65-year-old female who presents emergency department complaining of nausea vomiting and diarrhea that has been ongoing for the past several weeks. The patient reports this evening she began feeling very weak. She reports any movement makes the weakness worse however rest makes it better. She has not taken anything for the diarrhea. Patient reports she has been unable to keep her medicines down for the past several days and has not been taking any of her meds. ROS: See above HPI for pertinent positives & negatives. A total of 10 systems reviewed and were otherwise negative. PAST MEDICAL HISTORY: See Below PAST SURGICAL HISTORY: See Below FAMILY HISTORY: See Below SOCIAL HISTORY: See Below HOME MEDICATIONS: See Below ALLERGIES: See Below VITALS: See Below PHYSICAL EXAMINATION: VITAL SIGNS - Vital signs and nursing notes were reviewed. GENERAL - 65-year-old female appearing stated age who is in moderate distress. Communicates well with provider and answers questions appropriately. SKIN - Without rashes. HEAD - NC/AT. EYES - PERRL with EOMI bilaterally. Sclera anicteric. Palpebral conjunctiva pink and moist with no injection noted. EARS - No deformities of external structures noted on gross examination bilaterally. NOSE - Midline and without cyanosis. No epistaxis or purulent drainage noted. Septum midline without deviation or septal hematoma noted. MOUTH/OROPHARYNX - Without perioral cyanosis. Buccal mucosa pink and moist and without leukoplakia. Tongue midline with equal elevation of palate bilaterally. No tonsillar hypertrophy, erythema, or exudates noted. NECK - Neck with FROM. Supple to palpation. No nuchal rigidity. LUNGS - Chest wall symmetric without accessory muscle use, intercostals retractions, or central cyanosis. Normal vesicular breath sounds CTA B/L. No wheezes, rales, or rhonchi appreciated. CARDIAC - RRR with S1/S2. No murmur, rubs, or gallops appreciated. ABDOMEN - Abdominal contour without pulsations or visible masses. BS normoactive all four quadrants. No tenderness, palpable masses, hepatosplenomegaly, or ascites noted. EXTREMITIES - No clubbing or peripheral cyanosis. No pretibial edema present. +3/5 radial, posterior tibial, and dorsalis pedis pulses palpated throughout. +5/5 strength noted in UE/LE bilaterally. NEUROLOGIC - Cranial nerves II through XII grossly intact. Sensory intact to light touch throughout. Patellar reflexes +2/4. PSYCH - A&Ox3 and cooperates fully with examiner. Pt is very pleasant and interacts well with examiner. MEDICAL DECISION MAKING: Patient was seen and evaluated as above in room C7. Review was performed of nursing notes and vital signs. I did review pertinent previous visits and patient history. After obtaining a thorough history and physical examination the above work up was performed. This is a 65-year-old female who presents to the emergency department complaining nausea vomiting and diarrhea. Patient was given normal saline bolus here in the emergency department and her potassium was repleted. Due to how ill the patient is I did discuss the case with the hospitalist service who did agree to meet the patient. Patient does have an elevation in white blood cell count. An order was placed for continuous cardiac monitoring. The monitor shows a rate of 80 with Normal Sinus rhythm. The patient was evaluated during a period of high volume and high acuity during the global COVID-19 pandemic, and that diagnosis was suspected/considered upon their initial presentation. Their evaluation, treatment and testing was consistent with current guidelines for patients who present with complaints or symptoms that may be related to COVID-19. Patient was seen while provider was wearing PPE. Triage Nursing notes reviewed. Prior medical records reviewed Vital Signs: reviewed and remarkable for no significant abnormalities Differential diagnosis: Infection, dehydration, metabolic abnormality, hypo/hyperglycemia, electrolyte disturbance, anemia, hypoxia, cardiac sources, intracerebral event, toxicologic, neurologic, as well as other pathologies. ER treatment provided: See below Diagnostics interpreted by me: ECG: EKG shows an atrial sensed ventricular paced rhythm QTC is 506 ventricular rate is 108 EKG is compared to 05/07/2020 PVCs are no longer present. Imaging studies: [See below] Consultation(s): [none] ED COURSE: Procedures: [none] [PDMP:reviewed and no issues] [Critical Care:] [None] Past Med/Surg History Medical History Anxiety Bipolar 1 disorder 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 Beliefs That Will Affect Care: None marital status: Single Current Living Situation: Alone Current Living Situation Comment: self and guinea pig current occupation: retired Feels Safe at Home: Yes Assistive Devices: Oxygen - Continuous Allergies Allergies Allergy/AdvReac Type Severity Reaction Status Date / Time Sulfa (Sulfonamide Allergy Intermediate HIVES Verified 08/12/20 00:43 Antibiotics) Home Meds Home Medications Medication Instructions Recorded Confirmed Premarin 0.3 mg PO Q4D 02/25/20 08/12/20 aspirin 81 mg PO DAILY 02/25/20 08/12/20 lorazepam 1 mg PO TID PRN 02/25/20 08/12/20 baclofen 20 mg PO BID 05/07/20 08/12/20 lisinopril 5 mg PO DAILY 05/07/20 08/12/20 metoprolol succinate 50 mg PO DAILY 05/07/20 08/12/20 ondansetron HCl [Zofran] 4 mg PO Q6H PRN 05/07/20 08/12/20 sertraline [Zoloft] 100 mg PO DAILY 05/07/20 08/12/20 spironolactone 12.5 mg PO DAILY 05/07/20 08/12/20 valacyclovir [Valtrex] 1,000 mg PO DAILY 05/07/20 08/12/20 Results & Data (ED) Home Medications Current Medication List: was personally reviewed by me Laboratory Data Attestation: I reviewed the patient's lab results. Result diagrams: 08/12/20 06:37 08/12/20 06:37 Lab Results 0608/11/20 08/11/20 Range/Units 23:51 23:51 23:51 WBC 13.55 H (4.8-10.8) K/uL RBC 3.60 L (4.2-5.4) M/uL Hgb 11.1 L (12.0-16.0) g/dL Hct 32.4 L (37-47) % MCV 90.0 (80-100) fL MCH 30.8 (25-34) pg MCHC 34.3 (32-36) g/dL RDW Std Deviation 47.2 H (36.4-46.3) fL RDW Coeff of Rei 14.2 (11.5-14.5) % Plt Count 95 L (130-400) K/uL MPV 12.4 H (7.4-10.4) fL Immature Gran % (Auto) 0.2 % Neut % (Auto) 90.2 % Lymph % (Auto) 6.2 % Davidson % (Auto) 3.2 % Eos % (Auto) 0.1 % Baso % (Auto) 0.1 % Neut # (Auto) 12.23 H (1.4-6.5) K/uL Lymph # (Auto) 0.84 L (1.2-3.4) K/uL Davidson # (Auto) 0.43 (0.11-0.59) K/uL Eos # (Auto) 0.01 (0-0.5) K/uL Baso # (Auto) 0.01 (0-0.2) K/uL Immature Gran # (Auto) 0.03 H (0.00-0.02) K/uL Platelet Estimate Decreased L (Normal) RBC Morphology Unremarkable Sodium 137 (136-145) mmol/L Potassium 3.1 L (3.5-5.1) mmol/L Chloride 102 (98-107) mmol/L Carbon Dioxide 27 (21-32) mmol/L Anion Gap 8.0 (3-11) BUN 15 (7-18) mg/dl Creatinine 1.49 H (0.6-1.2) mg/dl Est Cr Clr Drug Dosing 40.0 ml/min Est GFR ( Amer) 42.9 ml/min Est GFR (Non-Af Amer) 37.0 ml/min BUN/Creatinine Ratio 10.1 (10-20) Glucose 129 H (70-99) mg/dl Lactate (0.4-2.0) mmol/L Calcium 8.1 L (8.5-10.1) mg/dl Magnesium 1.8 (1.8-2.4) mg/dl Total Bilirubin 0.9 (0.2-1) mg/dl AST 19 (15-37) U/L ALT 10 L (12-78) U/L Alkaline Phosphatase 110 (45-117) U/L Total Creatine Kinase 14 L (26-192) U/L CK-MB (CK-2) < 1.0 (0.5-3.6) ng/ml CK/CKMB % Calc TNP Troponin I < 0.015 (0-0.045) ng/ml Total Protein 6.2 L (6.4-8.2) gm/dl Albumin 2.2 L (3.4-5.0) gm/dl Globulin 4.0 (2.5-4.0) gm/dl Albumin/Globulin Ratio 0.6 L (0.9-2) Procalcitonin 5.75 H (0-0.5) ng/ml TSH 4.090 (0.300-4.500) uIu/ml COVID-19 Eval Order SARS-CoV-2 (PCR) (Negative) 08/12/20 08/12/20 08/12/20 Range/Units 01:18 01:20 01:20 WBC (4.8-10.8) K/uL RBC (4.2-5.4) M/uL Hgb (12.0-16.0) g/dL Hct (37-47) % MCV (80-100) fL MCH (25-34) pg MCHC (32-36) g/dL RDW Std Deviation (36.4-46.3) fL RDW Coeff of Rei (11.5-14.5) % Plt Count (130-400) K/uL MPV (7.4-10.4) fL Immature Gran % (Auto) % Neut % (Auto) % Lymph % (Auto) % Davidson % (Auto) % Eos % (Auto) % Baso % (Auto) % Neut # (Auto) (1.4-6.5) K/uL Lymph # (Auto) (1.2-3.4) K/uL Davidson # (Auto) (0.11-0.59) K/uL Eos # (Auto) (0-0.5) K/uL Baso # (Auto) (0-0.2) K/uL Immature Gran # (Auto) (0.00-0.02) K/uL Platelet Estimate (Normal) RBC Morphology Sodium (136-145) mmol/L Potassium (3.5-5.1) mmol/L Chloride (98-107) mmol/L Carbon Dioxide (21-32) mmol/L Anion Gap (3-11) BUN (7-18) mg/dl Creatinine (0.6-1.2) mg/dl Est Cr Clr Drug Dosing ml/min Est GFR ( Amer) ml/min Est GFR (Non-Af Amer) ml/min BUN/Creatinine Ratio (10-20) Glucose (70-99) mg/dl Lactate 2.3 H* (0.4-2.0) mmol/L Calcium (8.5-10.1) mg/dl Magnesium (1.8-2.4) mg/dl Total Bilirubin (0.2-1) mg/dl AST (15-37) U/L ALT (12-78) U/L Alkaline Phosphatase (45-117) U/L Total Creatine Kinase (26-192) U/L CK-MB (CK-2) (0.5-3.6) ng/ml CK/CKMB % Calc Troponin I (0-0.045) ng/ml Total Protein (6.4-8.2) gm/dl Albumin (3.4-5.0) gm/dl Globulin (2.5-4.0) gm/dl Albumin/Globulin Ratio (0.9-2) Procalcitonin (0-0.5) ng/ml TSH (0.300-4.500) uIu/ml COVID-19 Eval Order Covid19 at [facility] [place] SARS-CoV-2 (PCR) NEGATIVE (Negative) Administered Medications Acetaminophen (Acetaminophen 325 Mg Tab) 650 mg PO Q4H PRN PRN Reason: Pain or Fever Stop: 09/11/20 06:50 Last Admin: 08/12/20 23:13 Dose: 650 mg Documented by: [id number] Aspirin (Aspirin 81 Mg Ectab) 81 mg PO DAILY SILAS Stop: 09/11/20 08:59 Last Admin: 08/12/20 08:39 Dose: 81 mg Documented by: [id number] Baclofen (Baclofen 20 Mg Tab) 20 mg PO BID SILAS Stop: 09/11/20 08:59 Last Admin: 08/12/20 22:46 Dose: Not Given Documented by: [id number] Admin: 08/12/20 08:35 Dose: Not Given Documented by: [id number] Promethazine HCl 12.5 mg/ (Sodium Chloride) 50.5 mls @ 202 mls/hr IV Q6H PRN PRN Reason: Nausea And Vomiting Stop: 09/11/20 06:50 Last Infusion: 08/12/20 20:27 Dose: 0 mls/hr Documented by: [id number] Admin: 08/12/20 20:12 Dose: 202 mls/hr Documented by: [id number] Norepinephrine Bitartrate (Levophed/D5w) 8 mg in 508 mls @ 15.165 mls/hr IV .Q24H SILAS; Protocol Stop: 09/11/20 17:59 Last Titration: 08/13/20 04:36 Dose: 0.05 mcg/kg/min, 14.3 mls/hr Documented by: [id number] Titration: 08/13/20 04:12 Dose: 0.03 mcg/kg/min, 8.6 mls/hr Documented by: [id number] Titration: 08/13/20 01:03 Dose: 0.05 mcg/kg/min, 14.3 mls/hr Documented by: [id number] Titration: 08/13/20 00:31 Dose: 0.07 mcg/kg/min, 20 mls/hr Documented by: [id number] Titration: 08/12/20 23:24 Dose: 0.05 mcg/kg/min, 14.3 mls/hr Documented by: [id number] Admin: 08/12/20 21:37 Dose: 0.03 mcg/kg/min, 8.6 mls/hr Documented by: [id number] Cosigned by: [id number] Sertraline HCl (Sertraline Hcl 100 Mg Tablet) 100 mg PO DAILY SILAS Stop: 09/11/20 08:59 Last Admin: 08/12/20 08:39 Dose: 100 mg Documented by: [id number] Valacyclovir HCl (Valacyclovir Hcl 500 Mg Tablet) 1,000 mg PO DAILY SILAS; Protocol Stop: 09/11/20 08:59 Last Admin: 08/12/20 08:39 Dose: 1,000 mg Documented by: [id number] Discontinued Medications Sodium Chloride (Nss 1000ml) 1,000 mls @ 999 mls/hr IV .Q1H1M ONE Stop: 08/12/20 01:23 Last Infusion: 08/12/20 01:53 Dose: 0 mls/hr Documented by: [id number] Admin: 08/12/20 00:28 Dose: 999 mls/hr Documented by: [id number] Potassium Chloride (K Piyush / Wtr) 10 meq in 100 mls @ 100 mls/hr IV Q1H SILAS Stop: 08/12/20 02:44 Last Infusion: 08/12/20 03:49 Dose: 0 mls/hr Documented by: [id number] Admin: 08/12/20 02:31 Dose: 100 mls/hr Documented by: [id number] Infusion: 08/12/20 02:07 Dose: 100 mls/hr Documented by: [id number] Admin: 08/12/20 01:07 Dose: 100 mls/hr Documented by: [id number] Potassium Chloride 40 meq/ (Lactated Ringer's) 1,020 mls @ 80 mls/hr IV . [id number] ONE Stop: 08/12/20 15:29 Last Infusion: 08/12/20 15:55 Dose: 0 mls/hr Documented by: [id number] Admin: 08/12/20 02:57 Dose: 80 mls/hr Documented by: [id number] Metronidazole (Flagyl) 500 mg in 100 mls @ 100 mls/hr IV NOW STA Stop: 08/12/20 03:37 Last Admin: 08/12/20 02:57 Dose: Not Given Documented by: [id number] Cefepime HCl (Maxipime) 2,000 mg in 20 mls @ 5 mls/min IV NOW STA; Protocol Stop: 08/12/20 02:55 Last Admin: 08/12/20 03:45 Dose: 5 mls/min Documented by: [id number] Magnesium Sulfate/Dextrose (Magnesium Sulfate / D5w) 1 gm in 100 mls @ 50 mls/ hr IV ONE ONE Stop: 08/12/20 04:54 Last Infusion: 08/12/20 04:50 Dose: 0 mls/hr Documented by: [id number] Admin: 08/12/20 03:47 Dose: 50 mls/hr Documented by: [id number] Metronidazole (Flagyl) 500 mg in 100 mls @ 100 mls/hr IV Q8H SILAS Stop: 08/22/20 10:59 Last Infusion: 08/12/20 19:22 Dose: 0 mls/hr Documented by: [id number] Admin: 08/12/20 18:22 Dose: 100 mls/hr Documented by: [id number] Infusion: 08/12/20 13:15 Dose: 0 mls/hr Documented by: [id number] Admin: 08/12/20 12:14 Dose: 100 mls/hr Documented by: [id number] Daptomycin 1 mg/ Syringe 0.02 mls @ 0.01 mls/min IV ONE ONE; Protocol Stop: 08/12/20 04:57 Last Admin: 08/12/20 05:59 Dose: Not Given Documented by: [id number] Daptomycin 350 mg/ Syringe 7 mls @ 3.5 mls/min IV ONE ONE; Protocol Stop: 08/12/20 05:31 Last Admin: 08/12/20 05:59 Dose: 3.5 mls/min Documented by: [id number] Cefepime HCl 2,000 mg/ Syringe 20 mls @ 5 mls/min IV Q12H SILAS; Protocol Stop: 08/14/20 17:59 Last Admin: 08/12/20 17:12 Dose: 5 mls/min Documented by: [id number] Sodium Chloride (Nss 1000ml) 250 mls @ 999 mls/hr IV .Q16M ONE Stop: 08/12/20 09:01 Last Infusion: 08/12/20 09:35 Dose: 0 mls/hr Documented by: [id number] Admin: 08/12/20 08:30 Dose: 999 mls/hr Documented by: [id number] Parenteral Electrolytes (Normosol-R) 500 mls @ 500 mls/hr IV .Q1H ONE Stop: 08/12/20 20:36 Last Infusion: 08/12/20 20:50 Dose: 0 mls/hr Documented by: [id number] Admin: 08/12/20 19:50 Dose: 500 mls/hr Documented by: [id number] Albumin Human (Albumin 5%) 250 mls @ 500 mls/hr IV ONE ONE Stop: 08/12/20 20:06 Last Infusion: 08/12/20 20:36 Dose: 0 mls/hr Documented by: [id number] Admin: 08/12/20 20:06 Dose: 500 mls/hr Documented by: [id number] Ioversol (Optiray 320 100ml) 100 ml IV ONCE ONE Stop: 08/12/20 01:54 Last Admin: 08/12/20 01:54 Dose: 91 ml Documented by: [id number] Metronidazole (Metronidazole 500 Mg/100 Ml Bag) Confirm Administered Dose 500 mg IV .STK-MED ONE Stop: 08/12/20 02:46 Last Admin: 08/12/20 02:57 Dose: 500 mg Documented by: [id number] Potassium Chloride (Potassium Chloride Crtab 20 Meq Tabcr) 40 meq PO NOW STA Stop: 08/12/20 00:42 Last Admin: 08/12/20 01:07 Dose: 40 meq Documented by: [id number] Imaging Data Radiologist's Impression: Chest X-Ray 08/12/20 00:23 XR chest 1V portable CLINICAL HISTORY: Hypotension. COMPARISON STUDY: Chest radiograph May 07, 2020. FINDINGS: Lung volumes are normal. There is no pneumothorax or pleural effusion. A left subclavian biventricular pacer/AICD is in place. There is cardiomegaly. There is pulmonary vascular congestion without overt pulmonary edema. IMPRESSION: Cardiomegaly with pulmonary vascular congestion. ACT 112: Negative or not required by law. Electronically signed by: Joni Portillo M.D. 08/12/2020 8:12 AM Abdomen/Pelvis CT 08/12/20 00:51 CT abd pelvis IV con only CLINICAL HISTORY: Vomiting. Abdominal pain. COMPARISON STUDY: None. TECHNIQUE: The patient was scanned in a dynamic helical fashion during intravenous administration of 91 cc of Optiray 320 A dose lowering technique was utilized adhering to the principles of ALARA. CT DOSE: 530.50 mGy.cm FINDINGS: Lower chest: The heart is enlarged. There is a bilobed/tubular 7 mm left lower lobe nodule. Liver: There are scattered hypodense hepatic lesions, the largest of which measures 14 mm. Although nonspecific these likely represent cysts. Gallbladder: Surgically absent Spleen: Mildly enlarged measuring 13 cm Pancreas: Unremarkable. Adrenal glands: Unremarkable. Kidneys: No solid renal masses are visualized. There is a subcentimeter left renal cyst. There is no hydronephrosis. Bowel: There are no transition zones to indicate bowel obstruction. There is no evidence of acute diverticulitis. The appendix appears normal. There are multiple fluid-filled small bowel and colonic loops with scattered air-fluid levels. This nonspecific finding which could indicate an ileus or enteritis. Peritoneum: There is no intraperitoneal free air or abdominal ascites. Vasculature: The abdominal aorta is normal in course and caliber. Adenopathy: None. Pelvic viscera: The uterus is surgically absent. Skeletal structures: No destructive osseous lesions are seen. IMPRESSION: 1. No evidence of bowel obstruction. No evidence of free air 2. Fluid-filled small bowel and colonic loops with scattered air-fluid levels. This a nonspecific finding which could indicate an ileus or enteritis. 3. Normal appendix. No evidence of acute diverticulitis 4. Surgically absent gallbladder and uterus 5. Mild splenomegaly 6. Small hiatal hernia 7. 7 mm bilobed/tubular left lower lobe pulmonary nodule. 6 month follow-up is recommended per Fleischner criteria. Please refer to below summary of Fleischner criteria recommendations for follow- up of incidental CT nodules (Bibi Ray, Guidelines for management of small pulmonary nodules detected on CT scans: A statement from the Fleischner Society, Radiology 237: [phone].) SOLID NODULES Solitary nodule size: <6 mm * low risk patients: no follow-up needed * high risk patients: optional CT at 12 months Solitary nodule size: 6-8 mm * low risk patients: follow-up at 6-12 months, then consider further follow-up at 18-24 months * high risk patients: initial follow-up CT at 6-12 months and then at 18-24 months if no change Solitary nodule size: >8 mm * either low or high risk patients - consider follow-up CT at 3 months, and/or CT-PET, and/or biopsy Multiple nodules size: <6 mm * low risk patients: no routine follow-up * high risk patients: optional CT at 12 months Multiple nodules size: 6-8 mm * low risk patients: follow-up at 3-6 months, then consider further follow-up at 18-24 months * high risk patients: follow-up at 3-6 months, then at 18-24 months if no change Multiple nodules size: >8 mm * low risk patients: follow-up at 3-6 months, then consider further follow-up at 18-24 months * high risk patients: follow-up at 3-6 months, then at 18-24 months if no change Note: newly detected indeterminate nodule in persons 35 years of age or older. * low risk patients: minimal or absent history of smoking and/or other known risk factors * high risk patients: history of smoking or of other known risk factors (e.g. first degree relative with lung cancer, or exposure to asbestos, radon, uranium) * if a nodule up to 8 mm is partly solid or is ground glass further follow-up is required after 24 months to exclude possible slow growing adenocarcinoma (ELSA) SUBSOLID NODULES Solitary pure ground-glass nodule * nodule size <6 mm - no CT follow-up required * nodule size >=6 mm - follow-up CT at 6-12 months, then every 2 years until 5 years Solitary part-solid nodule * nodule size <6 mm - no CT follow-up required * nodule size >=6 mm - follow-up CT at 3-6 months. If unchanged, and solid component remains <6 mm, then annual follow-up for 5 years Multiple subsolid nodules * nodule size <6 mm - follow-up CT at 3-6 months, consider further follow-up at 2 and 4 years if stable * nodule size >=6 mm - follow-up CT at 3-6 months, subsequent management based on the most suspicious nodule(s) ACT 112: Positive. There are findings on this exam that require communication between the performing entity and the patient following Patient Test Result Information Act ([place] Act 112) guidelines. Electronically signed by: Wang Hernandez M.D. 08/12/2020 8:[address] 08/12/20 00:51 CT head/brain wo con CLINICAL HISTORY: 65 years-old Female with Pt c/o emesis. Acute headache with vomiting TECHNIQUE: Multiple axial CT images of the head were obtained without contrast. A dose lowering technique was utilized adhering to the principles of ALARA. CT DOSE: 537.48 mGy.cm COMPARISON: None. FINDINGS: No acute intracranial hemorrhage, midline shift, intracranial mass, hydrocephalus, territorial ischemia or abnormal extra-axial collection. Age- related involutional changes. Cerebral vascular calcifications. The calvarium is intact. The paranasal sinuses, mastoid air cells, and middle ear cavities are clear. IMPRESSION: No acute intracranial abnormality. ACT 112: Negative or not required by law. The above report was generated using voice recognition software. It may contain grammatical, syntax or spelling errors. Electronically signed by: Issa Morales M.D. 08/12/2020 6:59 AM Discharge Plan Visit Data Chief Complaint: Diarrhea Stated Complaint: NAUSEA/VOMITING/DIARRHEA ED Provider: Willem Salazar Discharge Problem: Dehydration, Acute hypotension Patient Disposition: Admitted As Inpatient Discharge Instructions Interventions: ED Discharge Assessment Last Done: 08/12/20 05:56
[2020-08-13 05:03] LABS: HCO3 VBG 23 mmol/L; Oxygen Saturation VBG 69.7 %; PCO2 VBG 42 mmHg (38-50); PO2 VBG 37 mmHg; pH VBG 7.36 (7.36-7.41)
[2020-08-13 05:13] LABS: INR 1.6 (0.9-1.1); Partial Thromboplastin Ratio 1.2; Partial Thromboplastin Time 32.6 Seconds (21.0-31.0); Prothrombin Time 16.1 Seconds (9.0-12.0)
[2020-08-13 05:15] LABS: Hematocrit (blood only) 27.2 % (37-47); Hemoglobin 9.2 g/dL (12.0-16.0); Mean Corpuscular Hemoglobin 30.4 pg (25-34); Mean Corpuscular Hgb Conc 33.8 g/dL (32-36); Mean Corpuscular Volume 89.8 fL (80-100); Mean Platelet Volume 12.7 fL (7.4-10.4); Platelet Count 85 K/uL (130-400); RDW Coefficient of Variation 14.5 % (11.5-14.5); RDW Standard Deviation 47.9 fL (36.4-46.3); Red Blood Count 3.03 M/uL (4.2-5.4); White Blood Count 24.76 K/uL (4.8-10.8)
[2020-08-13 05:18] LABS: Basophils # (auto) 0.02 K/uL (0-0.2); Basophils % (auto) 0.1 %; Dohle Bodies 2+; Eosinophils # (auto) 0.01 K/uL (0-0.5); Immature Granulocytes # (auto) 0.15 K/uL (0.00-0.02); Immature Granulocytes % (auto) 0.6 %; Lymphocytes # (auto) 2.08 K/uL (1.2-3.4); Lymphocytes % (auto) 8.4 %; Monocytes # (auto) 1.35 K/uL (0.11-0.59); Monocytes % (auto) 5.5 %; Neutrophils # (auto) 21.15 K/uL (1.4-6.5); Neutrophils % (auto) 85.4 %; Platelet Estimate Decreased (Normal); Toxic Vacuolation 1+
[2020-08-13 05:32] LABS: Albumin Level 2.1 gm/dl (3.4-5.0); BUN Creatinine Ratio 8.9 (10-20); Calcium 7.8 mg/dl (8.5-10.1); Creatinine Clr Calc Pharmacy 59.1 ml/min; Est GFR (African American) 68.6 ml/min; Est GFR (Non-African American) 59.2 ml/min; Potassium 3.9 mmol/L (3.5-5.1)
[2020-08-13 05:36] LABS: Bilirubin Direct 0.5 mg/dl (0-0.2); Bilirubin,Total 0.9 mg/dl (0.2-1); Phosphorus 2.6 mg/dl (2.5-4.9); Total Protein 5.2 gm/dl (6.4-8.2)
--- NOTE | 2020-08-13 05:46 | Electrocardiogram Report ---
Test Reason : Blood Pressure : / mmHG Vent. Rate : 108 BPM Atrial Rate : 108 BPM P-R Int : 122 ms QRS Dur : 152 ms QT Int : 378 ms P-R-T Axes : 074 004 137 degrees QTc Int : 506 ms Atrial-sensed ventricular-paced rhythm Abnormal ECG When compared with ECG of 07-MAY-2020 13:35, Atrial pacing is no longer present Vent. rate has increased BY 27 BPM Confirmed by Bandar Brown ([id number]) on 08/13/2020 5:45:32 AM Referred By: REFERRED SELF Confirmed By:Bandar Brown
[2020-08-13] MEDS ORDERED: DAPTOmycin 350 MG in SYRINGE 0 ML IV SCH (06:00)
[2020-08-13] MEDS ORDERED: lisinopril 5 MG TAB PO SCH (09:00)
[2020-08-13] MEDS ORDERED: lisinopril 2.5 MG TAB PO SCH (09:00)
[2020-08-13] MEDS: valACYclovir HCL 500 MG TABLET PO SCH ×2 (09:00→12:34)
[2020-08-13] MEDS: ASPIRIN 81 MG ECTAB PO SCH ×2 (09:00→12:33)
[2020-08-13] MEDS ORDERED: METOPROLOL SUCC 25MG EXT REL TAB PO SCH (09:00)
[2020-08-13] MEDS: BACLOFEN 20 MG TAB PO SCH ×3 (09:00→20:28)
[2020-08-13] MEDS: SERTRALINE HCL 100 MG TABLET PO SCH ×3 (09:00→14:50)
--- NOTE | 2020-08-13 10:13 | Critical Care Progress Note ---
Date of Service August 13, 2020 Assessment & Plan (1) Severe sepsis: Reason Critically Ill: 65-year-old female with gram-positive bacteremia and severe sepsis PLAN: Neuro: History of bipolar disorder -Continue home medications CV: Idiopathic cardiomyopathy -Echo to review ejection fraction as well as possible endocarditis Hypotension MAP has remained greater than 60: Resolved -Lactic acid has resolved Fluids/Renal: Acute kidney injury: Improved ID: Severe sepsis: With endorgan damage of acute kidney injury Gram-positive bacteremia: Alpha strep -Convert to Rocephin GI/Nutrition: Advance diet as tolerated Diarrhea: Resolved -Stool culture and C. difficile pending Heme: Anemia DVT prophylaxis: Lovenox 40 mg daily Endocrine: ICU hyperglycemia protocol Vascular access: Peripheral IVs Code Status: Full code Disposition: As we are off vasoactive's and her endorgan damage has resolved she is stable for downgrade out of ICU (2) Acute kidney failure: (3) Idiopathic cardiomyopathy: Admission and Anticipated Discharge Date Admission Date: August 12, 2020 Supervising Physician Co-Signing Physician Notes Patient was discussed in multidisciplinary rounds Results & Data Results & Data ([facility]) Vital Signs (Past 12 Hours) Vital Signs Temp Pulse Resp BP Pulse Ox 08/13/20 08:41 85 24 91/68 L 92 08/13/20 08:32 96 H 23 93 08/13/20 08:26 81 19 86/62 L 98 08/13/20 08:15 89 20 98 08/13/20 08:11 82 19 91/56 L 98 08/13/20 08:00 79 27 H 99 08/13/20 07:56 79 27 H 88/59 L 98 08/13/20 07:45 92 H 16 98 08/13/20 07:41 89 19 85/58 L 99 08/13/20 07:30 92 H 19 94 08/13/20 07:26 91 H 21 85/58 L 94 08/13/20 07:15 91 H 19 98 08/13/20 07:00 83 21 98 08/13/20 06:45 81 18 97 08/13/20 06:41 79 22 98 08/13/20 06:30 84 21 98 08/13/20 06:26 81 20 80/63 L 99 08/13/20 06:15 80 25 H 98 08/13/20 06:11 81 26 H 88/65 L 98 08/13/20 06:00 80 26 H 98 08/13/20 05:56 81 21 95/67 L 98 08/13/20 05:45 79 29 H 98 08/13/20 05:41 80 36 H 94/65 L 97 08/13/20 05:30 80 18 98 08/13/20 05:26 80 20 94/67 L 97 08/13/20 05:15 81 27 H 98 08/13/20 05:11 84 23 92/67 L 96 08/13/20 05:02 98 08/13/20 05:01 95/71 L 99 08/13/20 04:45 82 21 98 08/13/20 04:41 85 18 93/70 L 97 08/13/20 04:30 80 24 96 08/13/20 04:26 80 30 H 84/59 L 96 08/13/20 04:15 80 23 97 08/13/20 04:11 80 30 H 94/72 L 96 08/13/20 04:00 36.5 C 80 25 H 97 08/13/20 03:56 80 29 H 94/71 L 97 08/13/20 03:45 82 26 H 97 08/13/20 03:41 81 28 H 99/70 L 97 08/13/20 03:30 80 26 H 96 08/13/20 03:26 79 25 H 95/69 L 96 08/13/20 03:15 82 27 H 96 08/13/20 03:11 81 26 H 96/69 L 97 08/13/20 03:00 79 27 H 97 08/13/20 02:56 80 27 H 96/71 L 96 08/13/20 02:45 81 29 H 97 08/13/20 02:41 80 27 H 94/59 L 95 08/13/20 02:30 80 28 H 97 08/13/20 02:26 78 30 H 92/58 L 96 08/13/20 02:15 81 30 H 97 08/13/20 02:11 82 28 H 91/62 L 95 08/13/20 02:00 81 32 H 97 08/13/20 01:56 83 29 H 87/60 L 96 08/13/20 01:45 87 21 97 08/13/20 01:41 92 H 31 H 83/60 L 94 08/13/20 01:31 91 H 28 H 82/62 L 94 08/13/20 01:30 85 32 H 96 08/13/20 01:26 85 33 H 77/57 L 96 08/13/20 01:15 88 32 H 95 08/13/20 01:12 88 28 H 96 08/13/20 01:11 88 34 H 84/54 L 97 08/13/20 01:03 36.9 C 08/13/20 01:02 84 29 H 82/58 L 95 08/13/20 01:00 86 30 H 95 08/13/20 00:56 88 27 H 88/56 L 95 08/13/20 00:45 91 H 32 H 94 08/13/20 00:41 104 H 87/50 L 94 08/13/20 00:30 97 H 93 08/13/20 00:26 87 11 L 82/54 L 95 08/13/20 00:15 100 H 94 08/13/20 00:11 98 H 84/52 L 93 08/13/20 00:00 103 H 95 08/12/20 23:56 104 H 82/50 L 95 08/12/20 23:45 101 H 20 96 08/12/20 23:41 106 H 89/55 L 95 08/12/20 23:30 105 H 96 08/12/20 23:26 116 H 88/58 L 95 08/12/20 23:15 112 H 17 95 08/12/20 23:14 39.6 C H 08/12/20 23:11 112 H 19 84/62 L 96 08/12/20 23:00 114 H 95 08/12/20 22:56 112 H 91/62 L 95 08/12/20 22:45 111 H 95 08/12/20 22:41 113 H 89/48 L 95 08/12/20 22:30 110 H 95 08/12/20 22:26 111 H 86/51 L 95 08/12/20 22:15 111 H 96 08/12/20 22:11 111 H 92/67 L 96 Coding Level of Care Code 34156 Subseq Hosp Care Lvl 3 Diagnoses Severe sepsis A41.9; R65.20 Acute kidney failure N17.9 Acute renal failure type: unspecified Idiopathic cardiomyopathy I42.8 (1) Acute kidney failure Acute renal failure type: unspecified Qualified Code(s): N17.9 - Acute kidney failure, unspecified
[2020-08-13] MEDS: ENOXAPARIN INJ 40 MG/0.4 ML SYR SQ SCH (10:47)
[2020-08-13] MEDS: cefTRIAXone SODIUM 2,000 MG in DEXTROSE 5% 50 ML IV SCH (10:48)
--- NOTE | 2020-08-13 13:16 | Hospitalist Progress Note ---
Date of Service August 13, 2020 Assessment & Plan (1) Severe sepsis: SIRS plus lactic acid elevation Possible source -enteritis. CT abdomen pelvis showed fluid-filled small bowel and colonic loops, no specific findings according to gait ileus or enteritis. UA does not suggest UTI Chest x-ray does not show any focal opacity. Blood cultures growing alpha strep. Follow-up final speciation and sensitivities Repeat blood cultures today MRSA screen is negative. Increased leukocytosis. Antibiotics deescalated from Dapto and cefepime to ceftriaxone ICU physicians evaluation and recommendation noted. Patient was briefly on Levophed overnight but has been weaned off. Patient's blood pressure runs low with systolic usually 90s-100s and diastolic 50s to 60s. Blood pressure currently 94/56 Continue to hold lisinopril. We will plan to resume once more stable due to patient's low EF Patient technically meets criteria for septic shock. However, patient's BP runs chronically low likely due to NICM with EF 20% Chronic systolic heart failure secondary to nonischemic cardiomyopathy (EF 20%, TTE 2019) status post ICD CKD3 Cr is 1.01 today Chronic anemia Thrombocytopenia Hemoglobin at baseline Anxiety/mood disorder At baseline Hypokalemia Likely secondary to GI losses and home diuretic Rx DVT prophylaxis. Heparin subcu Full code Transfer from ICU to the floor Admission and Anticipated Discharge Date Admission Date: August 12, 2020 Subjective 65-year-old woman with history of chronic systolic heart failure, nonischemic cardiomyopathy with EF of 20% status post ICD, PVCs, CKD, chronic anemia, anxiety/mood disorder who presented with 2 weeks of nausea, vomiting, diarrhea and abdominal pain. Being managed for severe sepsis Patient seen and examined. Reports nausea is resolved so far. Last episode was last night. Had an episode of vomiting this morning. Reported one episode of loose stool this morning. Denies any abdominal pain. Denies fevers, chills Denies cough, chest pain, shortness of breath Denies dysuria, frequency, urgency Review of Systems Eyes: no problem reported Ear, Nose, Mouth, Throat: no problem reported Respiratory: no cough, no dyspnea and no dyspnea on exertion Cardiovascular: no chest pain, no dyspnea and no orthopnea Gastrointestinal: + vomiting; no abdominal pain and no nausea Genitourinary: no dysuria, no difficulty urinating and no hematuria Neurologic: no unsteadiness and no dizziness Psychiatric: no depression and no anxiety Physical Exam Constitutional: + well hydrated; no acute distress Eyes: PERRL, conjunctivae normal, anicteric sclerae ENMT: external ear and nose normal, oropharynx normal Respiratory: normal respiratory effort, lungs clear to auscultation Cardiovascular: RRR, no murmur, no edema Gastrointestinal (Abdomen): normal bowel sounds, soft, nontender, no hepatosplenomegaly Musculoskeletal: no cyanosis or clubbing, extremities motor strength 5/5 Neurologic: PERRL, EOMI, accommodation nl, no face palsy, no dysarthria Psychiatric: A+Ox3, euthymic affect Results & Data Results & Data ([facility]) Vital Signs (Past 12 Hours) Vital Signs Temp Pulse Resp BP Pulse Ox 08/13/20 12:00 37 C 08/13/20 11:00 89 24 99 08/13/20 10:45 87 31 H 96 08/13/20 10:41 83 28 H 81/57 L 96 08/13/20 10:30 83 28 H 95 08/13/20 10:26 80 26 H 74/49 L 95 08/13/20 10:15 80 29 H 96 08/13/20 10:11 80 30 H 78/53 L 93 08/13/20 10:00 80 11 L 95 08/13/20 09:56 86 21 81/55 L 95 08/13/20 09:45 87 28 H 89 L 08/13/20 09:41 86 32 H 81/56 L 89 L 08/13/20 09:30 90 23 94 08/13/20 09:26 82 27 H 84/56 L 93 08/13/20 09:15 78 27 H 92 08/13/20 09:11 83 29 H 82/54 L 91 08/13/20 09:00 85 28 H 92 08/13/20 08:56 83 23 86/58 L 91 08/13/20 08:45 72 25 H 92 08/13/20 08:42 36.7 C 87 32 H 92 08/13/20 08:41 85 24 91/68 L 92 08/13/20 08:32 96 H 23 93 08/13/20 08:26 81 19 86/62 L 98 08/13/20 08:15 89 20 98 08/13/20 08:11 82 19 91/56 L 98 08/13/20 08:00 79 27 H 96 08/13/20 07:56 79 27 H 88/59 L 98 08/13/20 07:45 92 H 16 98 08/13/20 07:41 89 19 85/58 L 99 08/13/20 07:30 92 H 19 94 08/13/20 07:26 91 H 21 85/58 L 94 08/13/20 07:15 91 H 19 98 08/13/20 07:00 83 21 98 08/13/20 06:45 81 18 97 08/13/20 06:41 79 22 98 08/13/20 06:30 84 21 98 08/13/20 06:26 81 20 80/63 L 99 08/13/20 06:15 80 25 H 98 08/13/20 06:11 81 26 H 88/65 L 98 08/13/20 06:00 80 26 H 98 08/13/20 05:56 81 21 95/67 L 98 08/13/20 05:45 79 29 H 98 08/13/20 05:41 80 36 H 94/65 L 97 08/13/20 05:30 80 18 98 08/13/20 05:26 80 20 94/67 L 97 08/13/20 05:15 81 27 H 98 08/13/20 05:11 84 23 92/67 L 96 08/13/20 05:02 98 08/13/20 05:01 95/71 L 99 08/13/20 04:45 82 21 98 08/13/20 04:41 85 18 93/70 L 97 08/13/20 04:30 80 24 96 08/13/20 04:26 80 30 H 84/59 L 96 08/13/20 04:15 80 23 97 08/13/20 04:11 80 30 H 94/72 L 96 08/13/20 04:00 36.5 C 80 25 H 97 08/13/20 03:56 80 29 H 94/71 L 97 08/13/20 03:45 82 26 H 97 08/13/20 03:41 81 28 H 99/70 L 97 08/13/20 03:30 80 26 H 96 08/13/20 03:26 79 25 H 95/69 L 96 08/13/20 03:15 82 27 H 96 08/13/20 03:11 81 26 H 96/69 L 97 08/13/20 03:00 79 27 H 97 08/13/20 02:56 80 27 H 96/71 L 96 08/13/20 02:45 81 29 H 97 08/13/20 02:41 80 27 H 94/59 L 95 08/13/20 02:30 80 28 H 97 08/13/20 02:26 78 30 H 92/58 L 96 08/13/20 02:15 81 30 H 97 08/13/20 02:11 82 28 H 91/62 L 95 08/13/20 02:00 81 32 H 97 08/13/20 01:56 83 29 H 87/60 L 96 08/13/20 01:45 87 21 97 08/13/20 01:41 92 H 31 H 83/60 L 94 08/13/20 01:31 91 H 28 H 82/62 L 94 08/13/20 01:30 85 32 H 96 08/13/20 01:26 85 33 H 77/57 L 96 Laboratory Results Abnormal lab results 08/12/20 08/12/20 08/13/20 Range/Units 19:11 23:18 04:40 WBC (4.8-10.8) K/uL RBC (4.2-5.4) M/uL Hgb (12.0-16.0) g/dL Hct (37-47) % RDW Std Deviation (36.4-46.3) fL Plt Count (130-400) K/uL MPV (7.4-10.4) fL Neut # (Auto) (1.4-6.5) K/uL [place] # (Auto) (0.11-0.59) K/uL Immature Gran # (Auto) (0.00-0.02) K/uL Platelet Estimate (Normal) PT 16.1 H (9.0-12.0) Seconds INR 1.6 H (0.9-1.1) APTT 32.6 H (21.0-31.0) Seconds Chloride (98-107) mmol/L BUN/Creatinine Ratio (10-20) Glucose (70-99) mg/dl POC Glucose 126 H (70-99) mg/dl Lactate 2.6 H* (0.4-2.0) mmol/L Calcium (8.5-10.1) mg/dl Direct Bilirubin (0-0.2) mg/dl AST (15-37) U/L ALT (12-78) U/L Total Protein (6.4-8.2) gm/dl Albumin (3.4-5.0) gm/dl Lipase (73-393) U/L 08/13/20 08/13/20 Range/Units 04:40 04:40 WBC 24.76 H (4.8-10.8) K/uL RBC 3.03 L (4.2-5.4) M/uL Hgb 9.2 L (12.0-16.0) g/dL Hct 27.2 L (37-47) % RDW Std Deviation 47.9 H (36.4-46.3) fL Plt Count 85 L (130-400) K/uL MPV 12.7 H (7.4-10.4) fL Neut # (Auto) 21.15 H (1.4-6.5) K/uL [place] # (Auto) 1.35 H (0.11-0.59) K/uL Immature Gran # (Auto) 0.15 H (0.00-0.02) K/uL Platelet Estimate Decreased L (Normal) PT (9.0-12.0) Seconds INR (0.9-1.1) APTT (21.0-31.0) Seconds Chloride 114 H (98-107) mmol/L BUN/Creatinine Ratio 8.9 L (10-20) Glucose 131 H (70-99) mg/dl POC Glucose (70-99) mg/dl Lactate (0.4-2.0) mmol/L Calcium 7.8 L (8.5-10.1) mg/dl Direct Bilirubin 0.5 H (0-0.2) mg/dl AST 14 L (15-37) U/L ALT 9 L (12-78) U/L Total Protein 5.2 L (6.4-8.2) gm/dl Albumin 2.1 L (3.4-5.0) gm/dl Lipase 61 L (73-393) U/L
--- NOTE | 2020-08-13 15:09 | Cardiology Consultation ---
Date of Consultation August 13, 2020 Assessment & Plan (1) Severe sepsis: (2) Idiopathic cardiomyopathy: (3) Frequent PVCs: (4) Acute HFrEF (heart failure with reduced ejection fraction): The patient had a strep bacteremia which is not enterococcal or pneumonia. She has made a rapid recovery after the start of antibiotics. She has a dilated idiopathic cardiomyopathy with severe LV dysfunction at baseline. She also has a history of frequent PVCs. In May she had a biventricular ICD i mplanted. I believe the patient had sepsis due to prolonged gastroenteritis and unlikely the result of the device implant. She will need follow-up blood cultures to be certain her bacteremia has resolved. Of note, she generally runs a low blood pressure and I would not get real concerned unless she is not making urine. We will follow along with you during her hospital stay. History of Present Illness Attending Physician: Amarilis Magallanes MD History of Present Illness This is a 65-year-old female who has been followed in our practice for many years. Originally she was followed by Dr. Naik for symptomatic PVCs. When Dr. Naik retired then I followed her for several years. Recently she has had progressive decline in her LV function. She has developed an idiopathic dilated cardiomyopathy. In May she received a biventricular pacemaker from Dr. Khan with not a great deal of improvement in her LV function. Her last estimated left ventricular ejection fraction was less than 20%. Starting about 2 weeks ago the patient became ill with nausea vomiting and diarrhea. It would last a couple days and then resolve only to restart again. She was admitted to the ICU with sepsis and her blood cultures have grown out an alpha strep not pneumonia/enteric. She is currently on treatment with antibiotics and feels markedly improved. Allergies Allergy/AdvReac Type Severity Reaction Status Date / Time Sulfa (Sulfonamide Allergy Intermediate HIVES Verified 08/12/20 00:43 Antibiotics) Home Medications Medication Instructions Recorded Confirmed Type Premarin 0.3 mg PO Q4D 02/25/20 08/12/20 History aspirin 81 mg PO DAILY 02/25/20 08/12/20 History lorazepam 1 mg PO TID PRN 02/25/20 08/12/20 History baclofen 20 mg PO BID 05/07/20 08/12/20 History lisinopril 5 mg PO DAILY 05/07/20 08/12/20 History metoprolol succinate 50 mg PO DAILY 05/07/20 08/12/20 History ondansetron HCl [Zofran] 4 mg PO Q6H PRN 05/07/20 08/12/20 History sertraline [Zoloft] 100 mg PO DAILY 05/07/20 08/12/20 History spironolactone 12.5 mg PO DAILY 05/07/20 08/12/20 History valacyclovir [Valtrex] 1,000 mg PO DAILY 05/07/20 08/12/20 History Patient History Medical History Anxiety Bipolar 1 disorder 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 If EF remains <35% despite optimal medical therapy then would recommend ICD Migraine Palpitations Surgical History History of ankle surgery History of bunionectomy History of cholecystectomy History of surgery on left wrist History of total abdominal hysterectomy and bilateral salpingo-oophorectomy Family History Father CHF (congestive heart failure) Other Diabetes Social History Smoking Status: Never smoker Hx Alcohol Use: No Hx Substance Use: Yes Preferred Language: [place] Communication Ability: Effective Casey Saw Operator Required: No Beliefs That Will Affect Care: None marital status: Single Current Living Situation: Alone Current Living Situation Comment: self and guinea pig current occupation: retired Feels Safe at Home: Yes Assistive Devices: Oxygen - Continuous Review of Systems Review of Systems: All systems reviewed & are unremarkable except as noted in HPI & below Nothing additional to add. Physical Exam Physical Exam: General: no acute distress and stated age Head: normocephalic, no masses, lesions, tenderness or abnormalities Eyes: conjunctiva are pink and non-injected, sclera clear Neck: supple, no adenopathy, no bruits, normal jugular venous pulse, no hepatojugular reflux Chest: normal shape and normal respiratory effort Lungs: clear to auscultation and percussion Cardiac Exam: - regular rate & rhythm, no murmurs gallops or rubs - normal S1, normal S2 Pulses: 2(+) throughout Abdomen: abdomen soft, non-tender, no abnormal masses and no hepatosplenomegaly Musculoskeletal: no gait disturbance, no joint inflammation, no deforming arthritis Extremities: no edema and no cyanosis Neuro: grossly normal exam Results & Data ([facility]) Vital Signs (Past 12 Hours) Vital Signs Temp Pulse Resp BP Pulse Ox 08/13/20 13:15 89 24 08/13/20 13:11 89 22 86/56 L 08/13/20 13:00 102 H 21 08/13/20 12:45 89 14 08/13/20 12:30 94 H 30 H 08/13/20 12:15 87 20 08/13/20 12:11 84 15 94/59 L 08/13/20 12:00 37 C 87 20 08/13/20 11:45 97 H 13 08/13/20 11:43 112 H 16 08/13/20 11:15 82 29 H 97 08/13/20 11:11 95 H 27 H 92/58 L 94 08/13/20 11:00 89 24 99 08/13/20 10:45 87 31 H 96 08/13/20 10:41 83 28 H 81/57 L 96 08/13/20 10:30 83 28 H 95 08/13/20 10:26 80 26 H 74/49 L 95 08/13/20 10:15 80 29 H 96 08/13/20 10:11 80 30 H 78/53 L 93 08/13/20 10:00 80 11 L 95 08/13/20 09:56 86 21 81/55 L 95 08/13/20 09:45 87 28 H 89 L 08/13/20 09:41 86 32 H 81/56 L 89 L 08/13/20 09:30 90 23 94 08/13/20 09:26 82 27 H 84/56 L 93 08/13/20 09:15 78 27 H 92 08/13/20 09:11 83 29 H 82/54 L 91 08/13/20 09:00 85 28 H 92 08/13/20 08:56 83 23 86/58 L 91 08/13/20 08:45 72 25 H 92 08/13/20 08:42 36.7 C 87 32 H 92 08/13/20 08:41 85 24 91/68 L 92 08/13/20 08:32 96 H 23 93 08/13/20 08:26 81 19 86/62 L 98 08/13/20 08:15 89 20 98 08/13/20 08:11 82 19 91/56 L 98 08/13/20 08:00 79 27 H 96 08/13/20 07:56 79 27 H 88/59 L 98 08/13/20 07:45 92 H 16 98 08/13/20 07:41 89 19 85/58 L 99 08/13/20 07:30 92 H 19 94 08/13/20 07:26 91 H 21 85/58 L 94 08/13/20 07:15 91 H 19 98 08/13/20 07:00 83 21 98 08/13/20 06:45 81 18 97 08/13/20 06:41 79 22 98 08/13/20 06:30 84 21 98 08/13/20 06:26 81 20 80/63 L 99 08/13/20 06:15 80 25 H 98 08/13/20 06:11 81 26 H 88/65 L 98 08/13/20 06:00 80 26 H 98 08/13/20 05:56 81 21 95/67 L 98 08/13/20 05:45 79 29 H 98 08/13/20 05:41 80 36 H 94/65 L 97 08/13/20 05:30 80 18 98 08/13/20 05:26 80 20 94/67 L 97 08/13/20 05:15 81 27 H 98 08/13/20 05:11 84 23 92/67 L 96 08/13/20 05:02 98 08/13/20 05:01 95/71 L 99 08/13/20 04:45 82 21 98 08/13/20 04:41 85 18 93/70 L 97 08/13/20 04:30 80 24 96 08/13/20 04:26 80 30 H 84/59 L 96 08/13/20 04:15 80 23 97 08/13/20 04:11 80 30 H 94/72 L 96 08/13/20 04:00 36.5 C 80 25 H 97 08/13/20 03:56 80 29 H 94/71 L 97 08/13/20 03:45 82 26 H 97 08/13/20 03:41 81 28 H 99/70 L 97 08/13/20 03:30 80 26 H 96 08/13/20 03:26 79 25 H 95/69 L 96 08/13/20 03:15 82 27 H 96 08/13/20 03:11 81 26 H 96/69 L 97 Laboratory Results Laboratory Results - last 24 hr 08/12/20 08/12/20 08/12/20 19:11 19:11 23:18 WBC RBC Hgb Hct MCV MCH MCHC RDW Std Deviation RDW Coeff of Rei Plt Count MPV Immature Gran % (Auto) Neut % (Auto) Lymph % (Auto) [place] % (Auto) Eos % (Auto) Baso % (Auto) Neut # (Auto) Lymph # (Auto) [place] # (Auto) Eos # (Auto) Baso # (Auto) Immature Gran # (Auto) Hypersegmented Neuts Toxic Vacuolation Dohle Bodies Platelet Estimate PT INR APTT PTT Ratio VBG pH VBG pCO2 VBG pO2 VBG HCO3 VBG O2 Saturation VBG Base Excess Sodium Potassium Chloride Carbon Dioxide Anion Gap BUN Creatinine Est Cr Clr Drug Dosing Est GFR ( Amer) Est GFR (Non-Af Amer) BUN/Creatinine Ratio Glucose POC Glucose 126 H Lactate 2.6 H* Calcium Ionized Calcium Phosphorus Magnesium Total Bilirubin Direct Bilirubin AST ALT Alkaline Phosphatase Total Protein Albumin Lipase Random Cortisol 23.86 Nasal Screen MRSA (PCR) 08/12/20 08/12/20 08/13/20 23:29 Unknown 04:40 WBC RBC Hgb Hct MCV MCH MCHC RDW Std Deviation RDW Coeff of Rei Plt Count MPV Immature Gran % (Auto) Neut % (Auto) Lymph % (Auto) [place] % (Auto) Eos % (Auto) Baso % (Auto) Neut # (Auto) Lymph # (Auto) [place] # (Auto) Eos # (Auto) Baso # (Auto) Immature Gran # (Auto) Hypersegmented Neuts Toxic Vacuolation Dohle Bodies Platelet Estimate PT 16.1 H INR 1.6 H APTT 32.6 H PTT Ratio 1.2 VBG pH VBG pCO2 VBG pO2 VBG HCO3 VBG O2 Saturation VBG Base Excess Sodium Potassium Chloride Carbon Dioxide Anion Gap BUN Creatinine Est Cr Clr Drug Dosing Est GFR ( Amer) Est GFR (Non-Af Amer) BUN/Creatinine Ratio Glucose POC Glucose Lactate 1.6 Calcium Ionized Calcium Phosphorus Magnesium Total Bilirubin Direct Bilirubin AST ALT Alkaline Phosphatase Total Protein Albumin Lipase Random Cortisol Nasal Screen MRSA (PCR) Negative 08/13/20 08/13/20 08/13/20 04:40 04:40 04:40 WBC RBC Hgb Hct MCV MCH MCHC RDW Std Deviation RDW Coeff of Rei Plt Count MPV Immature Gran % (Auto) Neut % (Auto) Lymph % (Auto) [place] % (Auto) Eos % (Auto) Baso % (Auto) Neut # (Auto) Lymph # (Auto) [place] # (Auto) Eos # (Auto) Baso # (Auto) Immature Gran # (Auto) Hypersegmented Neuts Toxic Vacuolation Dohle Bodies Platelet Estimate PT INR APTT PTT Ratio VBG pH 7.36 VBG pCO2 42 VBG pO2 37 VBG HCO3 23 VBG O2 Saturation 69.7 VBG Base Excess -2.0 Sodium 143 Potassium 3.9 Chloride 114 H Carbon Dioxide 25 Anion Gap 4.0 BUN 9 D Creatinine 1.01 Est Cr Clr Drug Dosing 59.1 Est GFR ( Amer) 68.6 Est GFR (Non-Af Amer) 59.2 BUN/Creatinine Ratio 8.9 L Glucose 131 H POC Glucose Lactate Calcium 7.8 L Ionized Calcium 1.13 Phosphorus 2.6 Magnesium 2.0 Total Bilirubin 0.9 Direct Bilirubin 0.5 H AST 14 L ALT 9 L Alkaline Phosphatase 100 Total Protein 5.2 L Albumin 2.1 L Lipase 61 L Random Cortisol Nasal Screen MRSA (PCR) 08/13/20 04:40 WBC 24.76 H RBC 3.03 L Hgb 9.2 L Hct 27.2 L MCV 89.8 MCH 30.4 MCHC 33.8 RDW Std Deviation 47.9 H RDW Coeff of Rei 14.5 Plt Count 85 L MPV 12.7 H Immature Gran % (Auto) 0.6 Neut % (Auto) 85.4 Lymph % (Auto) 8.4 [place] % (Auto) 5.5 Eos % (Auto) 0.0 Baso % (Auto) 0.1 Neut # (Auto) 21.15 H Lymph # (Auto) 2.08 [place] # (Auto) 1.35 H Eos # (Auto) 0.01 Baso # (Auto) 0.02 Immature Gran # (Auto) 0.15 H Hypersegmented Neuts Occasional Toxic Vacuolation 1+ Dohle Bodies 2+ Platelet Estimate Decreased L PT INR APTT PTT Ratio VBG pH VBG pCO2 VBG pO2 VBG HCO3 VBG O2 Saturation VBG Base Excess Sodium Potassium Chloride Carbon Dioxide Anion Gap BUN Creatinine Est Cr Clr Drug Dosing Est GFR ( Amer) Est GFR (Non-Af Amer) BUN/Creatinine Ratio Glucose POC Glucose Lactate Calcium Ionized Calcium Phosphorus Magnesium Total Bilirubin Direct Bilirubin AST ALT Alkaline Phosphatase Total Protein Albumin Lipase Random Cortisol Nasal Screen MRSA (PCR) Medications Administered Current Inpatient Medications Acetaminophen (Acetaminophen 325 Mg Tab) 650 mg PO Q4H PRN PRN Reason: Pain or Fever Stop: 09/11/20 06:50 Last Admin: 08/12/20 23:13 Dose: 650 mg Documented by: Aspirin (Aspirin 81 Mg Ectab) 81 mg PO DAILY [facility] Stop: 09/11/20 08:59 Last Admin: 08/13/20 12:33 Dose: 81 mg Documented by: Baclofen (Baclofen 20 Mg Tab) 20 mg PO BID [facility] Stop: 09/11/20 08:59 Last Admin: 08/13/20 12:34 Dose: 20 mg Documented by: Enoxaparin Sodium (Enoxaparin Inj 40 Mg/0.4 Ml Syr) 40 mg SQ QAM SILAS Stop: 09/12/20 08:59 Last Admin: 08/13/20 10:47 Dose: 40 mg Documented by: Promethazine HCl 12.5 mg/ (Sodium Chloride) 50.5 mls @ 202 mls/hr IV Q6H PRN PRN Reason: Nausea And Vomiting Stop: 09/11/20 06:50 Last Infusion: 08/12/20 20:27 Dose: Infused Documented by: Ceftriaxone Sodium 2,000 mg/ (Dextrose) 70 mls @ 140 mls/hr IV Q24H SILAS Stop: 08/27/20 10:14 Last Infusion: 08/13/20 11:46 Dose: Infused Documented by: Lorazepam (Lorazepam 1 Mg Tab) 1 mg PO TID PRN PRN Reason: Anxiety Stop: 09/11/20 07:06 Miscellaneous (Icu Protocol For Hyperglycemia) 1 ea N/A PRN PRN; Protocol PRN Reason: Hyperglycemia Protocol Stop: 08/14/20 17:48 Sertraline HCl (Sertraline Hcl 100 Mg Tablet) 200 mg PO DAILY [facility] Stop: 09/12/20 10:14 Last Admin: 08/13/20 12:34 Dose: 200 mg Documented by: Tramadol HCl (Tramadol Hcl 50 Mg Tablet) 25 mg PO Q4H PRN PRN Reason: Pain Stop: 09/11/20 06:50 Valacyclovir HCl (Valacyclovir Hcl 500 Mg Tablet) 1,000 mg PO DAILY [facility]; Protocol Stop: 09/11/20 08:59 Last Admin: 08/13/20 12:34 Dose: 1,000 mg Documented by:
[2020-08-14 04:54] LABS: Calcium 7.1 mg/dl (8.5-10.1); Creatinine Clr Calc Pharmacy 81.8 ml/min; Est GFR (African American) 99.9 ml/min; Est GFR (Non-African American) 86.2 ml/min; Magnesium 1.9 mg/dl (1.8-2.4); Phosphorus 2.5 mg/dl (2.5-4.9); Potassium 3.9 mmol/L (3.5-5.1)
[2020-08-14 05:20] LABS: Hematocrit (blood only) 25.2 % (37-47); Hemoglobin 8.6 g/dL (12.0-16.0); Mean Corpuscular Hemoglobin 30.9 pg (25-34); Mean Corpuscular Hgb Conc 34.1 g/dL (32-36); Mean Corpuscular Volume 90.6 fL (80-100); Mean Platelet Volume 13.2 fL (7.4-10.4); Platelet Count 113 K/uL (130-400); RDW Coefficient of Variation 14.5 % (11.5-14.5); RDW Standard Deviation 48.4 fL (36.4-46.3); Red Blood Count 2.78 M/uL (4.2-5.4); White Blood Count 10.61 K/uL (4.8-10.8)
[2020-08-14 05:21] LABS: Basophils # (auto) 0.03 K/uL (0-0.2); Basophils % (auto) 0.3 %; Eosinophils # (auto) 0.08 K/uL (0-0.5); Eosinophils % (auto) 0.8 %; Giant Platelets 1+; Immature Granulocytes # (auto) 0.04 K/uL (0.00-0.02); Immature Granulocytes % (auto) 0.4 %; Lymphocytes # (auto) 1.86 K/uL (1.2-3.4); Lymphocytes % (auto) 17.5 %; Monocytes # (auto) 0.73 K/uL (0.11-0.59); Monocytes % (auto) 6.9 %; Neutrophils # (auto) 7.87 K/uL (1.4-6.5); Neutrophils % (auto) 74.1 %; Platelet Estimate Decreased (Normal)
[2020-08-14] MEDS: SERTRALINE HCL 100 MG TABLET PO SCH (07:54)
[2020-08-14] MEDS: valACYclovir HCL 500 MG TABLET PO SCH (07:54)
[2020-08-14] MEDS: BACLOFEN 20 MG TAB PO SCH ×2 (07:54→22:54)
[2020-08-14] MEDS: ASPIRIN 81 MG ECTAB PO SCH (07:54)
[2020-08-14] MEDS: ENOXAPARIN INJ 40 MG/0.4 ML SYR SQ SCH (07:54)
--- NOTE | 2020-08-14 09:01 | Cardiology Progress Note ---
Date of Service August 14, 2020 Assessment & Plan (1) Severe sepsis: (2) Idiopathic cardiomyopathy: (3) Frequent PVCs: (4) Acute HFrEF (heart failure with reduced ejection fraction): The patient sepsis is markedly improved after the start of antibiotics. She normally runs a low blood pressure at home. She has sinus tachycardia on the monitor most likely contributed to by the absence of her beta-jai. I am going to start her on metoprolol tartrate 12.5 mg twice daily to start. She was on metoprolol succinate 50 mg daily at home. At some point I believe she she will benefit from the start of lisinopril and spironolactone which she took at home as well. Admission and Anticipated Discharge Date Admission Date: August 12, 2020 Subjective The patient feels markedly improved since hospital admission. No additional cardiac complaints today. Review of Systems Review of Systems: All systems reviewed & are unremarkable except as noted in Subjective Physical Exam Physical Exam: General: no acute distress and stated age Head: normocephalic, no masses, lesions, tenderness or abnormalities Eyes: conjunctiva are pink and non-injected, sclera clear Neck: supple, no adenopathy, no bruits, normal jugular venous pulse, no hepatojugular reflux Chest: normal shape and normal respiratory effort Lungs: clear to auscultation and percussion Cardiac Exam: - regular rate & rhythm, no murmurs gallops or rubs - normal S1, normal S2 Pulses: 2(+) throughout Abdomen: abdomen soft, non-tender, no abnormal masses and no hepatosplenomegaly Musculoskeletal: no gait disturbance, no joint inflammation, no deforming arthritis Extremities: no edema and no cyanosis Neuro: grossly normal exam Results & Data ([facility]) Vital Signs (Past 12 Hours) Vital Signs Temp Pulse Resp BP Pulse Ox 08/14/20 03:10 36.9 C 08/14/20 03:08 101 H 28 H 88/64 L 94 08/14/20 00:12 102 H 08/13/20 23:15 37.1 C 08/13/20 23:12 103 H 18 83/68 L 96 Laboratory Results Laboratory Results - last 24 hr 08/14/20 08/14/20 04:28 04:28 WBC 10.61 D RBC 2.78 L Hgb 8.6 L Hct 25.2 L MCV 90.6 MCH 30.9 MCHC 34.1 RDW Std Deviation 48.4 H RDW Coeff of Rei 14.5 Plt Count 113 L MPV 13.2 H Immature Gran % (Auto) 0.4 Neut % (Auto) 74.1 Lymph % (Auto) 17.5 [place] % (Auto) 6.9 Eos % (Auto) 0.8 Baso % (Auto) 0.3 Neut # (Auto) 7.87 H Lymph # (Auto) 1.86 [place] # (Auto) 0.73 H Eos # (Auto) 0.08 Baso # (Auto) 0.03 Immature Gran # (Auto) 0.04 H Platelet Estimate Decreased L Giant Platelets 1+ Sodium 141 Potassium 3.9 Chloride 112 H Carbon Dioxide 25 Anion Gap 4.0 BUN 6 L Creatinine 0.74 Est Cr Clr Drug Dosing 81.8 Est GFR ( Amer) 99.9 Est GFR (Non-Af Amer) 86.2 BUN/Creatinine Ratio 8.0 L Glucose 88 Calcium 7.1 L Phosphorus 2.5 Magnesium 1.9 Diagnostic Findings Telemetry indicates sinus tachycardia with ventricular pacing. Medications Administered Current Inpatient Medications Acetaminophen (Acetaminophen 325 Mg Tab) 650 mg PO Q4H PRN PRN Reason: Pain or Fever Stop: 09/11/20 06:50 Last Admin: 08/12/20 23:13 Dose: 650 mg Documented by: Aspirin (Aspirin 81 Mg Ectab) 81 mg PO DAILY [facility] Stop: 09/11/20 08:59 Last Admin: 08/14/20 07:54 Dose: 81 mg Documented by: Baclofen (Baclofen 20 Mg Tab) 20 mg PO BID [facility] Stop: 09/11/20 08:59 Last Admin: 08/14/20 07:54 Dose: 20 mg Documented by: Enoxaparin Sodium (Enoxaparin Inj 40 Mg/0.4 Ml Syr) 40 mg SQ QAM [facility] Stop: 09/12/20 08:59 Last Admin: 08/14/20 07:54 Dose: 40 mg Documented by: Promethazine HCl 12.5 mg/ (Sodium Chloride) 50.5 mls @ 202 mls/hr IV Q6H PRN PRN Reason: Nausea And Vomiting Stop: 09/11/20 06:50 Last Infusion: 08/12/20 20:27 Dose: Infused Documented by: Ceftriaxone Sodium 2,000 mg/ (Dextrose) 70 mls @ 140 mls/hr IV Q24H [facility] Stop: 08/27/20 10:14 Last Infusion: 08/13/20 11:46 Dose: Infused Documented by: Lorazepam (Lorazepam 1 Mg Tab) 1 mg PO TID PRN PRN Reason: Anxiety Stop: 09/11/20 07:06 Metoprolol Tartrate (Metoprolol Tartrate 25 Mg Tab) 12.5 mg PO BID [facility] Stop: 09/13/20 08:59 Miscellaneous ([facility] Protocol For Hyperglycemia) 1 ea N/A PRN PRN; Protocol PRN Reason: Hyperglycemia Protocol Stop: 08/14/20 17:48 Sertraline HCl (Sertraline Hcl 100 Mg Tablet) 200 mg PO DAILY [facility] Stop: 09/12/20 10:14 Last Admin: 08/14/20 07:54 Dose: 200 mg Documented by: Tramadol HCl (Tramadol Hcl 50 Mg Tablet) 25 mg PO Q4H PRN PRN Reason: Pain Stop: 09/11/20 06:50 Valacyclovir HCl (Valacyclovir Hcl 500 Mg Tablet) 1,000 mg PO DAILY [facility]; Protocol Stop: 09/11/20 08:59 Last Admin: 08/14/20 07:54 Dose: 1,000 mg Documented by:
[2020-08-14] MEDS: cefTRIAXone SODIUM 2,000 MG in DEXTROSE 5% 50 ML IV SCH (11:22)
[2020-08-14] MEDS: METOPROLOL TARTRATE 25 MG TAB PO SCH ×2 (11:22→22:54)
--- NOTE | 2020-08-14 13:20 | Hospitalist Progress Note ---
Date of Service August 14, 2020 Assessment & Plan (1) Severe sepsis: SIRS plus lactic acid elevation Possible source -enteritis. CT abdomen pelvis showed fluid-filled small bowel and colonic loops, non specific findings which could indicate ileus or enteritis. UA does not suggest UTI Chest x-ray does not show any focal opacity. Blood cultures growing step mitis. Repeat blood cultures from 08/13/20 negative 24h MRSA screen is negative. Leukocytosis resolved Continue ceftriaxone Patient technically meets criteria for septic shock. However, patient's BP runs chronically low likely due to NICM with EF 20% Patient was briefly on Levophed for one night but has been weaned off. Patient's blood pressure runs low Continue to hold lisinopril. Field Services Manager recommendations noted Chronic systolic heart failure secondary to nonischemic cardiomyopathy (EF 20%, TTE 2019) status post ICD Echo show EF of 15 to 20%. Had sinus tachycardia earlier today and was started on metoprolol 12.5 mg twice daily per cardiology. Was on metoprolol succinate 50 mg daily prior to presentation but was held in view of sepsis CKD3 Cr is 0.74 today Chronic anemia Thrombocytopenia Hemoglobin did drop from 11 on admission to 8-9s May be dilutional Will monitor Anxiety/mood disorder At baseline Hypokalemia Likely secondary to GI losses and home diuretic Rx Resolved DVT prophylaxis. Heparin subcu Full code Admission and Anticipated Discharge Date Admission Date: August 12, 2020 Subjective 65-year-old woman with history of chronic systolic heart failure, nonischemic cardiomyopathy with EF of 20% status post ICD, PVCs, CKD, chronic anemia, anxiety/mood disorder who presented with 2 weeks of nausea, vomiting, diarrhea and abdominal pain. Being managed for severe sepsis Patient seen and examined. Reports nausea has resolved. Last diarrhea was yesterday Still reports weakness but feeling better today Review of Systems Review of Systems: All systems reviewed & are unremarkable except as noted in Subjective Physical Exam Constitutional: + well hydrated; no acute distress Eyes: PERRL, conjunctivae normal, anicteric sclerae ENMT: external ear and nose normal, oropharynx normal Respiratory: normal respiratory effort, lungs clear to auscultation Cardiovascular: Rate/Rhythm: regular rate and regular rhythm S1 S2 Gastrointestinal (Abdomen): normal bowel sounds, soft, nontender, no hepatosplenomegaly Musculoskeletal: no cyanosis or clubbing, extremities motor strength 5/5 Neurologic: PERRL, EOMI, accommodation nl, no face palsy, no dysarthria Psychiatric: A+Ox3, euthymic affect Results & Data Results & Data ([facility]) Vital Signs (Past 12 Hours) Vital Signs Temp Pulse Pulse Resp BP BP BP 08/14/20 12:00 36.7 C 96 H 18 87/52 L 08/14/20 08:00 37 C 114 H 16 88/67 L 08/14/20 03:10 36.9 C 08/14/20 03:08 101 H 28 H 88/64 L Pulse Ox 08/14/20 12:00 95 08/14/20 08:00 95 08/14/20 03:10 08/14/20 03:08 94 Laboratory Results Abnormal lab results 08/14/20 08/14/20 Range/Units 04:28 04:28 RBC 2.78 L (4.2-5.4) M/uL Hgb 8.6 L (12.0-16.0) g/dL Hct 25.2 L (37-47) % RDW Std Deviation 48.4 H (36.4-46.3) fL Plt Count 113 L (130-400) K/uL MPV 13.2 H (7.4-10.4) fL Neut # (Auto) 7.87 H (1.4-6.5) K/uL [place] # (Auto) 0.73 H (0.11-0.59) K/uL Immature Gran # (Auto) 0.04 H (0.00-0.02) K/uL Platelet Estimate Decreased L (Normal) Chloride 112 H (98-107) mmol/L BUN 6 L (7-18) mg/dl BUN/Creatinine Ratio 8.0 L (10-20) Calcium 7.1 L (8.5-10.1) mg/dl
[2020-08-15] MEDS: ASPIRIN 81 MG ECTAB PO SCH (07:49)
[2020-08-15] MEDS: valACYclovir HCL 500 MG TABLET PO SCH (07:49)
[2020-08-15] MEDS: BACLOFEN 20 MG TAB PO SCH ×2 (07:49→19:59)
[2020-08-15] MEDS: SERTRALINE HCL 100 MG TABLET PO SCH (07:49)
[2020-08-15] MEDS: METOPROLOL TARTRATE 25 MG TAB PO SCH (07:50)
[2020-08-15] MEDS: ENOXAPARIN INJ 40 MG/0.4 ML SYR SQ SCH (07:50)
[2020-08-15 08:01] LABS: Basophils # (auto) 0.04 K/uL (0-0.2); Basophils % (auto) 0.4 %; Eosinophils # (auto) 0.09 K/uL (0-0.5); Hematocrit (blood only) 28.8 % (37-47); Hemoglobin 9.8 g/dL (12.0-16.0); Immature Granulocytes # (auto) 0.03 K/uL (0.00-0.02); Immature Granulocytes % (auto) 0.3 %; Lymphocytes # (auto) 1.79 K/uL (1.2-3.4); Lymphocytes % (auto) 19.9 %; Mean Corpuscular Volume 91.1 fL (80-100); Mean Platelet Volume 12.7 fL (7.4-10.4); Monocytes # (auto) 0.52 K/uL (0.11-0.59); Monocytes % (auto) 5.8 %; Neutrophils # (auto) 6.53 K/uL (1.4-6.5); Neutrophils % (auto) 72.6 %; Platelet Count 171 K/uL (130-400); RDW Coefficient of Variation 14.8 % (11.5-14.5); RDW Standard Deviation 49.6 fL (36.4-46.3); Red Blood Count 3.16 M/uL (4.2-5.4)
[2020-08-15 08:18] LABS: BUN Creatinine Ratio 5.7 (10-20); Calcium 8.1 mg/dl (8.5-10.1); Creatinine Clr Calc Pharmacy 77.1 ml/min; Est GFR (African American) 92.3 ml/min; Est GFR (Non-African American) 79.7 ml/min; Magnesium 2.1 mg/dl (1.8-2.4); Potassium 4.2 mmol/L (3.5-5.1)
--- NOTE | 2020-08-15 10:15 | Cardiology Progress Note ---
Date of Service August 15, 2020 Assessment & Plan (1) Severe sepsis: (2) Idiopathic cardiomyopathy: (3) Frequent PVCs: (4) Acute HFrEF (heart failure with reduced ejection fraction): Starting to add back the patient's. I am cognizant that the patient runs a low blood pressure normally at home and we will add them back slowly but she does need to be on guideline directed medication for her cardiomyopathy. Admission and Anticipated Discharge Date Admission Date: August 12, 2020 Subjective The patient had an uneventful night. She has no new cardiac complaints. Review of Systems Review of Systems: All systems reviewed & are unremarkable except as noted in Subjective Physical Exam Physical Exam: General: no acute distress and stated age Head: normocephalic, no masses, lesions, tenderness or abnormalities Eyes: conjunctiva are pink and non-injected, sclera clear Neck: supple, no adenopathy, no bruits, normal jugular venous pulse, no hepatojugular reflux Chest: normal shape and normal respiratory effort Lungs: clear to auscultation and percussion Cardiac Exam: - regular rate & rhythm, no murmurs gallops or rubs - normal S1, normal S2 Pulses: 2(+) throughout Abdomen: abdomen soft, non-tender, no abnormal masses and no hepatosplenomegaly Musculoskeletal: no gait disturbance, no joint inflammation, no deforming arthritis Extremities: no edema and no cyanosis Neuro: grossly normal exam Results & Data ([facility]) Vital Signs (Past 12 Hours) Vital Signs Temp Pulse Resp BP BP Pulse Ox Pulse Ox 08/15/20 08:09 37.1 C 119 H 20 94/60 L 94 08/15/20 08:00 36.7 C 114 H 08/15/20 05:50 94 08/15/20 04:02 37.4 C 104 H 18 82/44 L 95 08/14/20 23:28 37.8 C H 84 18 88/46 L 95 Laboratory Results Laboratory Results - last 24 hr 08/14/20 08/15/20 08/15/20 17:30 07:39 07:39 WBC 9.00 RBC 3.16 L Hgb 9.8 L Hct 28.8 L MCV 91.1 MCH 31.0 MCHC 34.0 RDW Std Deviation 49.6 H RDW Coeff of Rei 14.8 H Plt Count 171 D MPV 12.7 H Immature Gran % (Auto) 0.3 Neut % (Auto) 72.6 Lymph % (Auto) 19.9 [place] % (Auto) 5.8 Eos % (Auto) 1.0 Baso % (Auto) 0.4 Neut # (Auto) 6.53 H Lymph # (Auto) 1.79 [place] # (Auto) 0.52 Eos # (Auto) 0.09 Baso # (Auto) 0.04 Immature Gran # (Auto) 0.03 H Sodium 141 Potassium 4.2 Chloride 113 H Carbon Dioxide 22 Anion Gap 7.0 BUN 5 L Creatinine 0.79 Est Cr Clr Drug Dosing 77.1 Est GFR ( Amer) 92.3 Est GFR (Non-Af Amer) 79.7 BUN/Creatinine Ratio 5.7 L Glucose 97 Calcium 8.1 L Phosphorus 3.0 Magnesium 2.1 Stl C. diff Tox B Gene Negative Cdiff Gene Medications Administered Current Inpatient Medications Acetaminophen (Acetaminophen 325 Mg Tab) 650 mg PO Q4H PRN PRN Reason: Pain or Fever Stop: 09/11/20 06:50 Last Admin: 08/12/20 23:13 Dose: 650 mg Documented by: Aspirin (Aspirin 81 Mg Ectab) 81 mg PO DAILY [facility] Stop: 09/11/20 08:59 Last Admin: 08/15/20 07:49 Dose: 81 mg Documented by: Baclofen (Baclofen 20 Mg Tab) 20 mg PO BID [facility] Stop: 09/11/20 08:59 Last Admin: 08/15/20 07:49 Dose: 20 mg Documented by: Enoxaparin Sodium (Enoxaparin Inj 40 Mg/0.4 Ml Syr) 40 mg SQ QAM [facility] Stop: 09/12/20 08:59 Last Admin: 08/15/20 07:50 Dose: 40 mg Documented by: Promethazine HCl 12.5 mg/ (Sodium Chloride) 50.5 mls @ 202 mls/hr IV Q6H PRN PRN Reason: Nausea And Vomiting Stop: 09/11/20 06:50 Last Infusion: 08/12/20 20:27 Dose: Infused Documented by: Ceftriaxone Sodium 2,000 mg/ (Dextrose) 70 mls @ 140 mls/hr IV Q24H [facility] Stop: 08/27/20 10:14 Last Infusion: 08/14/20 12:47 Dose: Infused Documented by: Lisinopril (Lisinopril 5 Mg Tab) 5 mg PO QAM [facility] Stop: 09/15/20 08:59 Lorazepam (Lorazepam 1 Mg Tab) 1 mg PO TID PRN PRN Reason: Anxiety Stop: 09/11/20 07:06 Metoprolol Succinate (Metoprolol Succ 25mg Ext Rel Tab) 25 mg PO QAM [facility] Stop: 09/14/20 10:14 Sertraline HCl (Sertraline Hcl 100 Mg Tablet) 200 mg PO DAILY [facility] Stop: 09/12/20 10:14 Last Admin: 08/15/20 07:49 Dose: 200 mg Documented by: Spironolactone (Spironolactone 12.5 Mg Tab) 12.5 mg PO DAILY [facility] Stop: 09/14/20 10:14 Tramadol HCl (Tramadol Hcl 50 Mg Tablet) 25 mg PO Q4H PRN PRN Reason: Pain Stop: 09/11/20 06:50 Valacyclovir HCl (Valacyclovir Hcl 500 Mg Tablet) 1,000 mg PO DAILY [facility]; Protocol Stop: 09/11/20 08:59 Last Admin: 08/15/20 07:49 Dose: 1,000 mg Documented by:
[2020-08-15] MEDS: cefTRIAXone SODIUM 2,000 MG in DEXTROSE 5% 50 ML IV SCH (10:25)
[2020-08-15] MEDS: METOPROLOL SUCC 25MG EXT REL TAB PO SCH (11:13)
[2020-08-15] MEDS: SPIRONOLACTONE 12.5 MG TAB PO SCH (11:13)
--- NOTE | 2020-08-15 12:48 | Hospitalist Progress Note ---
Date of Service August 15, 2020 Assessment & Plan (1) Severe sepsis: SIRS plus lactic acid elevation Possible source -enteritis. CT abdomen pelvis showed fluid-filled small bowel and colonic loops, non specific findings which could indicate ileus or enteritis. UA does not suggest UTI Chest x-ray does not show any focal opacity. Blood cultures growing strep mitis. Repeat blood cultures from 08/13/20 negative MRSA screen is negative. Leukocytosis resolved Patient technically meets criteria for septic shock. However, patient's BP runs chronically low likely due to NICM with EF 20% Patient was briefly on Levophed for one night but has been weaned off. Patient's blood pressure runs low Home med lisinopril has been on hold. Certified Alcohol Drug Counselor recommendations noted. Plan to resume lisinopril tomorrow Continue ceftriaxone today Plan to deescalate to po tomorrow and discharge home Chronic systolic heart failure secondary to nonischemic cardiomyopathy (EF 20%, TTE 2019) status post ICD Echo show EF of 15 to 20%. Lisinopril resumed to start tomorrow Continue metoprolol succinate CKD3 Cr is 0.79 today Chronic anemia Thrombocytopenia Hemoglobin did drop from 11 on admission to 8-9s May be dilutional Will monitor Anxiety/mood disorder At baseline Hypokalemia Likely secondary to GI losses and home diuretic Rx Resolved DVT prophylaxis. Heparin subcu Full code Admission and Anticipated Discharge Date Admission Date: August 12, 2020 Subjective 65-year-old woman with history of chronic systolic heart failure, nonischemic cardiomyopathy with EF of 20% status post ICD, PVCs, CKD, chronic anemia, anxiety/mood disorder who presented with 2 weeks of nausea, vomiting, diarrhea and abdominal pain. Being managed for severe sepsis Patient seen and examined. Nausea and diarrhea has resolved. Reports generalized weakness but improving Review of Systems Review of Systems: All systems reviewed & are unremarkable except as noted in Subjective Physical Exam Constitutional: + well hydrated; no acute distress Eyes: PERRL, conjunctivae normal, anicteric sclerae ENMT: external ear and nose normal, oropharynx normal Respiratory: normal respiratory effort, lungs clear to auscultation Cardiovascular: Rate/Rhythm: regular rate and regular rhythm S1-S2 Gastrointestinal (Abdomen): normal bowel sounds, soft, nontender, no hepatosplenomegaly Musculoskeletal: no cyanosis or clubbing, extremities motor strength 5/5 Neurologic: PERRL, EOMI, accommodation nl, no face palsy, no dysarthria Psychiatric: A+Ox3, euthymic affect Results & Data Results & Data ([facility]) Vital Signs (Past 12 Hours) Vital Signs Temp Pulse Resp BP BP Pulse Ox Pulse Ox 08/15/20 12:00 37.3 C 100 H 20 101/81 98 08/15/20 08:09 37.1 C 119 H 20 94/60 L 94 08/15/20 08:00 36.7 C 114 H 08/15/20 05:50 94 08/15/20 04:02 37.4 C 104 H 18 82/44 L 95 Laboratory Results Abnormal lab results 08/15/20 08/15/20 Range/Units 07:39 07:39 RBC 3.16 L (4.2-5.4) M/uL Hgb 9.8 L (12.0-16.0) g/dL Hct 28.8 L (37-47) % RDW Std Deviation 49.6 H (36.4-46.3) fL RDW Coeff of Rei 14.8 H (11.5-14.5) % MPV 12.7 H (7.4-10.4) fL Neut # (Auto) 6.53 H (1.4-6.5) K/uL Immature Gran # (Auto) 0.03 H (0.00-0.02) K/uL Chloride 113 H (98-107) mmol/L BUN 5 L (7-18) mg/dl BUN/Creatinine Ratio 5.7 L (10-20) Calcium 8.1 L (8.5-10.1) mg/dl
[2020-08-16 07:14] LABS: Hematocrit (blood only) 27.3 % (37-47); Hemoglobin 9.1 g/dL (12.0-16.0); Mean Corpuscular Hemoglobin 30.4 pg (25-34); Mean Corpuscular Hgb Conc 33.3 g/dL (32-36); Mean Corpuscular Volume 91.3 fL (80-100); Mean Platelet Volume 12.3 fL (7.4-10.4); Platelet Count 193 K/uL (130-400); RDW Coefficient of Variation 14.8 % (11.5-14.5); RDW Standard Deviation 49.4 fL (36.4-46.3); Red Blood Count 2.99 M/uL (4.2-5.4); White Blood Count 9.78 K/uL (4.8-10.8)
[2020-08-16 07:38] LABS: BUN Creatinine Ratio 6.2 (10-20); Calcium 7.9 mg/dl (8.5-10.1); Creatinine Clr Calc Pharmacy 75.9 ml/min; Est GFR (African American) 92.3 ml/min; Est GFR (Non-African American) 79.7 ml/min; Potassium 4.2 mmol/L (3.5-5.1)
[2020-08-16 07:39] LABS: Phosphorus 2.6 mg/dl (2.5-4.9)
[2020-08-16] MEDS: BACLOFEN 20 MG TAB PO SCH (08:50)
[2020-08-16] MEDS: METOPROLOL SUCC 25MG EXT REL TAB PO SCH (08:51)
[2020-08-16] MEDS: SERTRALINE HCL 100 MG TABLET PO SCH (08:51)
[2020-08-16] MEDS: ASPIRIN 81 MG ECTAB PO SCH (08:52)
[2020-08-16] MEDS: valACYclovir HCL 500 MG TABLET PO SCH (08:53)
[2020-08-16] MEDS: SPIRONOLACTONE 12.5 MG TAB PO SCH (08:54)
[2020-08-16] MEDS: ENOXAPARIN INJ 40 MG/0.4 ML SYR SQ SCH (08:54)
[2020-08-16] MEDS ORDERED: lisinopril 5 MG TAB PO SCH (09:00)
[2020-08-16] MEDS: cefTRIAXone SODIUM 2,000 MG in DEXTROSE 5% 50 ML IV SCH (10:16)
--- NOTE | 2020-08-16 11:24 | Hospitalist Progress Note ---
Date of Service August 16, 2020 Assessment & Plan (1) Severe sepsis: SIRS plus lactic acid elevation Possible source -enteritis. CT abdomen pelvis showed fluid-filled small bowel and colonic loops, non specific findings which could indicate ileus or enteritis. UA does not suggest UTI Chest x-ray does not show any focal opacity. Blood cultures growing strep mitis. Repeat blood cultures from 08/13/20 negative MRSA screen is negative. Leukocytosis resolved Patient technically meets criteria for septic shock. However, patient's BP runs chronically low likely due to NICM with EF < 20% Patient was briefly on Levophed for one night but has been weaned off. Patient's blood pressure runs low Home med lisinopril has been on hold. Farm Loan Representative recommendations noted. Plan to resume lisinopril tomorrow On ceftriaxone. Change to po augmentin to complete 14 therapy Chronic systolic heart failure secondary to nonischemic cardiomyopathy (EF 20%, TTE 2019) status post ICD Echo show EF of 15 to 20%. Discussed with Farm Loan Representative Continue lisinopril 5mg daily Continue metoprolol succinate at lower dose of 25mg daily on discharge CKD3 Cr is 0.79 today Chronic anemia Thrombocytopenia Hemoglobin did drop from 11 on admission to 9s May be dilutional Platelet was 95 on admission, now 193 Anxiety/mood disorder At baseline Hypokalemia Likely secondary to GI losses and home diuretic Rx Resolved Admission and Anticipated Discharge Date Admission Date: August 12, 2020 Subjective 65-year-old woman with history of chronic systolic heart failure, nonischemic cardiomyopathy with EF of 20% status post ICD, PVCs, CKD, chronic anemia, anxiety/mood disorder who presented with 2 weeks of nausea, vomiting, diarrhea and abdominal pain. Being managed for severe sepsis Patient seen and examined. Symptoms are resolved Reports feeling better by the day Review of Systems Review of Systems: All systems reviewed & are unremarkable except as noted in Subjective Physical Exam Constitutional: + well hydrated; no acute distress Eyes: PERRL, conjunctivae normal, anicteric sclerae ENMT: external ear and nose normal, oropharynx normal Respiratory: normal respiratory effort, lungs clear to auscultation Cardiovascular: Rate/Rhythm: regular rate and regular rhythm S1 S2 Gastrointestinal (Abdomen): normal bowel sounds, soft, nontender, no hepatosplenomegaly Musculoskeletal: no cyanosis or clubbing, extremities motor strength 5/5 Neurologic: PERRL, EOMI, accommodation nl, no face palsy, no dysarthria Psychiatric: A+Ox3, euthymic affect Results & Data Results & Data ([facility]) Vital Signs (Past 12 Hours) Vital Signs Temp Pulse Pulse Resp BP BP Pulse Ox 08/16/20 07:52 36.8 C 65 18 100/56 L 98 08/16/20 04:20 36.6 C 91 H 20 91/61 L 95 08/16/20 01:03 85 08/15/20 23:50 37.1 C 95 H 18 91/60 L 95 Laboratory Results Abnormal lab results 08/16/20 08/16/20 Range/Units 07:02 07:02 RBC 2.99 L (4.2-5.4) M/uL Hgb 9.1 L (12.0-16.0) g/dL Hct 27.3 L (37-47) % RDW Std Deviation 49.4 H (36.4-46.3) fL RDW Coeff of Rei 14.8 H (11.5-14.5) % MPV 12.3 H (7.4-10.4) fL Chloride 113 H (98-107) mmol/L BUN 5 L (7-18) mg/dl BUN/Creatinine Ratio 6.2 L (10-20) Calcium 7.9 L (8.5-10.1) mg/dl
--- NOTE | 2020-08-16 11:25 | Discharge Summary ---
Date of Service August 16, 2020 Admission HPI Per Admitting Provider SurgeryHistory obtained from patient and records. Medical history significant for chronic systolic heart failure secondary to nonischemic cardiomyopathy (EF 20%, TTE 2019) status post ICD, history of PVCs, CRI (baseline creatinine 1.5 ), chronic anemia (baseline hemoglobin of 11), anxiety/mood disorder. Last confinement February 2020 for decompensated heart failure. 2 weeks history of nausea, vomiting, watery diarrhea symptoms without abdominal pain/headache complaints as per patient. No recent antibiotics/no known sick contacts/no recent out-of-town travel/no new restaurants. Patient unable to take home medications because of symptoms. Patient denies chest pain, S OB, cough symptoms. Patient brought to the ER for evaluation. Medical History as above Surgical History : Bunion surgery, sinus surgery, PERFECTO, oophorectomy Family History : DM, heart disease Personal/Social history : Non-smoker, no EtOH intake, disabled Admission Exam Per Admitting Provider GENERAL: Slightly uncomfortable, apathetic, no respiratory distress, covered with blankets SKIN: Pallor , warm HEENT: Pale palpebral conjunctivae, no ptosis, dry buccal mucosa NECK : Supple, no tenderness CHEST : CTA, no tenderness HEART : Tachycardic, diminished S1-S2 ABDOMEN: Some distention, nontender EXTREMITIES : No LE swelling/tenderness, no other conspicuous deformities noted NEUROLOGIC : Coherent, no facial asymmetry, no other gross focality Principal Diagnosis Severe sepsis Chronic systolic heart failure Discharge Exam Constitutional + well hydrated; no acute distress Eyes PERRL, conjunctivae normal, anicteric sclerae ENMT external ear and nose normal, oropharynx normal Respiratory normal respiratory effort, lungs clear to auscultation Cardiovascular Rate/Rhythm: regular rate and regular rhythm S1 S2. No pedal edema Gastrointestinal (Abdomen) normal bowel sounds, soft, nontender, no hepatosplenomegaly Musculoskeletal no cyanosis or clubbing, extremities motor strength 5/5 Neurologic PERRL, EOMI, accommodation nl, no face palsy, no dysarthria Psychiatric A+Ox3, euthymic affect Discharge Data Allergies Allergy/AdvReac Type Severity Reaction Status Date / Time Sulfa (Sulfonamide Allergy Intermediate HIVES Verified 08/12/20 00:43 Antibiotics) Consultations 08/12/20 02:35 ED Decision to Admit Stat 08/12/20 17:03 Consult Pump Runner Routine 08/13/20 14:53 Consult Cardiology Routine Ordered Studies 08/12/20 00:51 CT abd pelvis IV con only Urgent Lower chest: The heart is enlarged. There is a bilobed/tubular 7 mm left lower lobe nodule. Liver: There are scattered hypodense hepatic lesions, the largest of which measures 14 mm. Although nonspecific these likely represent cysts. Gallbladder: Surgically absent Spleen: Mildly enlarged measuring 13 cm Pancreas: Unremarkable. Adrenal glands: Unremarkable. Kidneys: No solid renal masses are visualized. There is a subcentimeter left renal cyst. There is no hydronephrosis. Bowel: There are no transition zones to indicate bowel obstruction. There is no evidence of acute diverticulitis. The appendix appears normal. There are multiple fluid-filled small bowel and colonic loops with scattered air-fluid levels. This nonspecific finding which could indicate an ileus or enteritis. Peritoneum: There is no intraperitoneal free air or abdominal ascites. Vasculature: The abdominal aorta is normal in course and caliber. Adenopathy: None. Pelvic viscera: The uterus is surgically absent. Skeletal structures: No destructive osseous lesions are seen. IMPRESSION: 1. No evidence of bowel obstruction. No evidence of free air 2. Fluid-filled small bowel and colonic loops with scattered air-fluid levels. This a nonspecific finding which could indicate an ileus or enteritis. 3. Normal appendix. No evidence of acute diverticulitis 4. Surgically absent gallbladder and uterus 5. Mild splenomegaly 6. Small hiatal hernia 7. 7 mm bilobed/tubular left lower lobe pulmonary nodule. 6 month follow-up is recommended per Fleischner criteria. CT head/brain wo con Urgent No acute intracranial hemorrhage, midline shift, intracranial mass, hydrocephalus, territorial ischemia or abnormal extra-axial collection. Age- related involutional changes. Cerebral vascular calcifications. The calvarium is intact. The paranasal sinuses, mastoid air cells, and middle ear cavities are clear. IMPRESSION: No acute intracranial abnormality. Hospital Course (1) Severe sepsis: SIRS plus lactic acid elevation Possible source -enteritis. CT abdomen pelvis showed fluid-filled small bowel and colonic loops, non specifi c findings which could indicate ileus or enteritis. UA does not suggest UTI Chest x-ray does not show any focal opacity. Blood cultures growing strep mitis. Patient had a colonoscopy in 10/2017 which showed normal colon with internal hemorrhoid Repeat blood cultures from 08/13/20 negative MRSA screen is negative. Leukocytosis resolved Patient technically met criteria for septic shock. However, patient's BP runs chronically low likely due to NICM with EF < 20% Patient was briefly on Levophed for one night in ICU. Patient's blood pressure runs low Home BP meds were intially held but later resumed Lisinopril resumed Metoprolol succinate resumed but at lower dose fo 25mg daily Chronic systolic heart failure secondary to nonischemic cardiomyopathy (EF 20%, TTE 2019) status post ICD Echo show EF of 15 to 20%. Discussed with Analysis Specialist Continue lisinopril 5mg daily Continue metoprolol succinate at lower dose of 25mg daily on discharge CKD3 Cr is 0.79 today Chronic anemia Thrombocytopenia Hemoglobin did drop from 11 on admission to 9s May be dilutional Platelet was 95 on admission, now 193 Anxiety/mood disorder At baseline Hypokalemia Likely secondary to GI losses and home diuretic Rx Resolved Total Time Total Time Spent Total Time Spent (In Minutes): 60 Total Time Includes: Examination of the Patient, Discharge Planning, Medication Reconciliation and Communication With Other Providers Discharge Plan Discharge Items Patient Disposition: Home - Self-Care Reason For Visit: SEPSIS Discharge Diagnosis: Severe sepsis Chronic systolic heart failure Activity: Resume your previous activity Non-emergency contact: Primary Care Provider and Analysis Specialist Call non-emergency contact if: you have any medication questions and your symptoms worsen Follow-up/Referrals: Gregory Garcia DO [Primary Care Provider] - 08/21/20 11:20 am (Date & Time 08/21/2020 11:20 AM Provider Alex Fink DO Department [facility] ) Diet: Heart Healthy and Lactose Intolerant Add Attending Provider Instructions: Mrs Morris You came to the hospital complaining of nausea, vomiting and diarrhea. You were evaluated and managed for sepsis. You were comanaged with the Analysis Specialist due to your low blood pressures Your blood pressure meds were initially held but has been resumed. Your metoprolol succinate is currently reduced to 25mg daily. You are being discharged on Augmentin to complete treatment. Please continue taking your meds as prescribed until follow up with your Cardi ologist and Primary Doctor. It was a pleasure taking care of you. Pending Studies at Discharge: No Stand-Alone Forms: [facility], Smoking Cessation Medications and DC Order Prescriptions: New amoxicillin-pot clavulanate [Augmentin] 875-125 mg tablet 1 tab PO BID 10 Days Qty: 20 RF: 0 Continued aspirin 81 mg Tablet,Delayed Release (Dr/Ec) 81 mg PO DAILY RF: 0 lorazepam 1 mg tablet 1 mg PO TID PRN (Reason: Anxiety) RF: 0 Premarin 0.3 mg Tablet 0.3 mg PO Q4D RF: 0 valacyclovir [Valtrex] 1 gram Tablet 1,000 mg PO DAILY RF: 0 spironolactone 25 mg Tablet 12.5 mg PO DAILY RF: 0 baclofen 20 mg Tablet 20 mg PO BID RF: 0 lisinopril 5 mg Tablet 5 mg PO DAILY RF: 0 ondansetron HCl [Zofran] 4 mg Tablet 4 mg PO Q6H PRN (Reason: Nausea) RF: 0 sertraline [Zoloft] 100 mg Tablet 100 mg PO DAILY RF: 0 Changed metoprolol succinate 50 mg Tablet Extended Release 24 Hr 25 mg PO DAILY Qty: 0 RF: 0 Discharge Orders: Discharge Order (Routine); Ordered 08/16/20 Ordered By: Amarilis Villar/Other Patient Handouts: Understanding Post Sepsis Syndrome, Kidney Failure Self Care, Dehydration, Sepsis, Understanding Sepsis Admission Data Admit Date/Time: 08/12/20 03:34 Attending Provider: Amarilis Magallanes I. Admit Provider: Morgan Baird Primary Care Provider: Gregory Garcia Other Providers: Tita Combs ; Morgan Baird ; Lisandro Whitman ; Tony Smith ; Hunter Joseph ; Eugene Royal ; Luciano Mcpherson ; Gigi Guevara ; Randall Malone ; Alf Lopez Other Interventions: Discharge Summary Assessment (RN) Last Done: 08/16/20 16:04
--- NOTE | 2020-08-16 15:46 | Cardiology Progress Note ---
Date of Service August 16, 2020 Assessment & Plan (1) Severe sepsis: Patient presented with acute sepsis and now is recovering. Usual medications are being reinstituted with slightly reduced dose of metoprolol succinate. Will likely need to be increased post hospital discharge overall patient gaining strength and noting no acute complaints no signs or symptoms of heart failure or acute decompensation. Agree with discharge today (2) Idiopathic cardiomyopathy: (3) Frequent PVCs: (4) Acute HFrEF (heart failure with reduced ejection fraction): Admission and Anticipated Discharge Date Admission Date: August 12, 2020 Subjective Patient seen and examined, chart, medications, telemetry reviewed. Review of Systems Review of Systems: All systems reviewed & are unremarkable except as noted in HPI & below Physical Exam Constitutional: WD/WN, vitals as above Eyes: PERRL, conjunctivae normal, anicteric sclerae ENMT: external ear and nose normal, oropharynx normal Neck: trachea midline, no thyromegaly Respiratory: normal respiratory effort, lungs clear to auscultation Cardiovascular: Rate/Rhythm: regular rate and regular rhythm Heart Sounds: normal S1 and normal S2; no gallop and no murmur Palpation: normal PMI Vessels: normal carotid upstroke and radial pulses present; no JVD and no carotid bruit Extremities: no edema Gastrointestinal (Abdomen): normal bowel sounds, soft, nontender, no hepatosplenomegaly Musculoskeletal: no cyanosis or clubbing, extremities motor strength 5/5 Skin: no rashes, warm and dry Neurologic: PERRL, EOMI, accommodation nl, no face palsy, no dysarthria Psychiatric: A+Ox3, euthymic affect Results & Data ([facility]) Vital Signs (Past 12 Hours) Vital Signs Temp Pulse Pulse Resp BP BP Pulse Ox 08/16/20 14:57 92 H 08/16/20 12:00 36.8 C 89 18 125/59 L 98 08/16/20 07:52 36.8 C 65 18 100/56 L 98 08/16/20 04:20 36.6 C 91 H 20 91/61 L 95
--- NOTE | 2020-08-24 09:51 | Coding Query ---
CONGESTIVE HEART FAILURE To Promote full compliance with coding requirements relating to patient care, physician participation is requested in all cases of toy assembly supervisor uncertainty. Please assist us with the following questions. A diagnosis of Congestive Heart Failure is documented in the patient's medical record. To accurately code this diagnosis and to compare patient severity, we ask that you specify the type of heart failure by placing an X within the parenthesis (x). ( Cardiology progress notes documented acute systolic heart failure) . SYSTOLIC HEART FAILURE ( ) Acute ( ) Chronic ( ) Acute on Chronic ( ) Rheumatic ( ) Unknown DIASTOLIC HEART FAILURE ( ) Acute ( ) Chronic ( ) Acute on Chronic ( ) Rheumatic ( ) Unknown COMBINED SYSTOLIC AND DIASTOLIC HEART FAILURE ( ) Acute ( x) Chronic ( ) Acute on Chronic ( ) Rheumatic ( ) Unknown Was the CHF Present On Admission? Please check the appropriate box: ( ) Present on Admission ( ) Not Present On Admission ( ) Clinically undetermined Thank you CHAR Apod[place] [facility]Che
== END 2020-08-16 16:47 | disposition home or self-care (01) | DRG 871 ==
LOC: ED 23:30 → SUATTDRO 08-12 03:34 → 2N 08-12 03:34 → 1E 08-12 18:43 → 2S 08-14 19:56

== ENCOUNTER 2021-03-25 00:15 | Inpatient (IN) ==
[2021-03-25] MEDS ORDERED: FUROSEMIDE 40 MG/4 ML VIAL IV ONE ×2 (00:21→05:27)
--- NOTE | 2021-03-25 00:23 | Emergency Department Note ---
Impression & Plan Anasarca, MATTHEW (acute kidney injury), Pneumonia ADMIT ED Provider Note HPI: The patient is a 65-year-old female with history of systolic heart failure secondary to idiopathic cardiomyopathy, status post pacemaker, bipolar disorder, presents to the emergency department with a chief complaint of increasing swelling in her bilateral lower extremities over the past 3 days. Patient states she has also had some nausea and diminished appetite during this time. She states she has had some mild shortness of breath. She denies any chest pain or abdominal pain. Patient is afebrile on arrival, saturating well on room air. She is otherwise in no acute distress on arrival. ROS: -GI: Nausea -MSK: Peripheral edema -Pulmonary: Shortness of breath *10 point review systems was conducted and is otherwise negative unless stated above *Outpatient medications and allergy history reviewed PE: General: Alert, NAD HEENT: Normocephalic, atraumatic Eyes: Extraocular eye movement is intact, no scleral erythema Pulmonary: Clear to auscultation bilaterally, no wheezing Cardio: Regular rate and rhythm GI: Abdomen is soft, nontender : No suprapubic tenderness MSK: No evidence of trauma or malformation of the extremities, 2-3+ pitting edema of the bilateral lower extremities Skin: No evidence of rash Neuro: Alert, no focal deficits Psychiatric: Cooperative medical scientific officer: - An order was placed for continuous cardiac monitoring - Patient was noted to be in paced rhythm with rate of 80 CT ABDOMEN & PELVIS With Contrast: Marked cardiomegaly, increased in size from the previous examination 08/12/2020 with reflux of contrast into the intrahepatic IVC and hepatic veins from the right atrium. The liver is slightly more prominent from the previous exam with irregular contours. Findings suggest venous congestion. Similar presumed incidental hepatic cysts. No biliary dilatation. Cholecystectomy. Layering right pleural effusion noted posteriorly, measuring approximately 2 cm. Subsegmental changes at the right lung base laterally and posteriorly may represent compressive atelectasis or right basilar infection. Subcutaneous edema throughout the soft tissues of the abdomen and pelvis is new from the examination 08/12/2020. Favor positive fluid status/anasarca over cellulitis. No hernia or loculated collection. The pancreas, spleen, adrenal glands and kidneys are unremarkable. No bowel obstruction or definite focal bowel mucosal abnormality. No pneumoperitoneum. Mild dependent free fluid in the pelvis is presumed related to positive fluid status. No loculation. Hysterectomy. The bladder is unremarkable. Radiologist:Nallely Mcdowell MD EKG: Rate: 80 Rhythm: Paced Intervals: QRS 180, QTc 625, MO 130 ST changes: No ST elevation Time: 0048 Medical Decision Making: Patient presented to the emergency department with a chief complaint of nausea, she has had some swelling in her bilateral lower extremities, both the symptoms have been ongoing for about the past 3 days. She also later admits to a dry cough and some generalized weakness during this time. IV was established, lab work obtained, patient has evidence of mild transaminitis with an elevated bilirubin level, she is noted to have a surgical history of a cholecystectomy, given the patient's complaint of nausea with these findings CT imaging of the abdomen pelvis was obtained and shows multiple abnor mal findings including subcutaneous edema throughout the soft tissues of the abdomen and pelvis that does appear new from her examination in August, likely related to anasarca. She has cardiomegaly that is also increased in size from previous examination. Notable for venous congestion throughout the liver. No biliary ductal dilation is noted. Patient also has evidence of what appears to be possible infectious process at the right lung base. COVID-19 testing is ordered, blood cultures will be obtained, patient was treated with ceftriaxone and azithromycin given findings on CT imaging of the chest suggestive of possible pneumonia. Patient was given a dose of IV Lasix for her fluid status. Given the acute change of these findings in relation to her previous CT scans over the summer in conjunction with the patient's edema and generalized weakness, I did discuss with the patient she is in agreement for admission. Case was discussed with the on-call hospitalist for [facility], patient was admitted in stable condition for further work-up. Diagnosis: 1. Anasarca 2. Acute kidney injury 3. Elevated bilirubin level 4. Right lower lobe pneumonia Disposition: Admission Allen Jay DO Emergency Medicine Past Med/Surg History Medical History Anxiety Bipolar 1 disorder 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 If EF remains <35% despite optimal medical therapy then would recommend ICD Migraine Palpitations Surgical History History of ankle surgery History of bunionectomy History of cholecystectomy History of surgery on left wrist History of total abdominal hysterectomy and bilateral salpingo-oophorectomy Family History Father CHF (congestive heart failure) Other Diabetes Social History Smoking Status: Never smoker Hx Alcohol Use: No Hx Substance Use: Yes Preferred Language: Burkinan Communication Ability: Effective Elementary Teacher Required: No Beliefs That Will Affect Care: None marital status: Single Current Living Situation: Alone Current Living Situation Comment: self and guinea pig current occupation: retired Feels Safe at Home: Yes Assistive Devices: None Allergies Allergies Allergy/AdvReac Type Severity Reaction Status Date / Time Sulfa (Sulfonamide Allergy Intermediate HIVES Verified 03/25/21 00:48 Antibiotics) Home Meds Home Medications Medication Instructions Recorded Confirmed lorazepam 1 mg tablet (Ativan) 1 mg PO TID PRN 02/25/20 03/25/21 sertraline 100 mg tablet (Zoloft) 200 mg PO QAM 05/07/20 03/25/21 valacyclovir 1 gram tablet 1,000 mg PO QAM 05/07/20 03/25/21 (Valtrex) apixaban 5 mg tablet (Eliquis) 5 mg PO BID 03/25/21 03/25/21 atovaquone 750 mg/5 mL oral 1,500 mg PO DAILY 03/25/21 03/25/21 suspension calcium carbonate 600 mg-vitamin 1 tab PO DAILY 03/25/21 03/25/21 D3 5 mcg (200 unit) tablet (Calcium 600 + D(3)) furosemide 80 mg tablet 80 mg PO BID 03/25/21 03/25/21 metoprolol succinate 25 mg 37.5 mg PO DAILY 03/25/21 03/25/21 tablet,extended release 24 hr omeprazole 20 mg capsule,delayed 20 mg PO DAILY 03/25/21 03/25/21 release prednisone 20 mg tablet 40 mg PO DIRECTED 03/25/21 03/25/21 spironolactone 50 mg tablet 50 mg PO DAILY 03/25/21 03/25/21 Results & Data (ED) Vital Signs Vital Signs - 24 hr 03/25/21 00:20 03/25/21 00:21 03/25/21 01:30 Temperature 36.4 C L Temperature Source Oral Pulse Rate 86 Pulse Rate [Apical] 80 Respiratory Rate 18 22 Respiratory Effort / Characteristics Non-Labored Spontaneous Non-Labored Spontaneous Respiratory Depth Normal Normal Respiratory Pattern Regular Blood Pressure 97/65 L Blood Pressure [Right Arm] 95/67 L Blood Pressure Mean 75 Blood Pressure Mean [Right Arm] 76 Pulse Oximetry 93 93 95 Oxygen Delivery Method Room Air Room Air Room Air Sepsis Recent Fever Within 48 Hours No Sepsis New/Unexplained Change in Mental Status No Sepsis Action Taken by Nursing No Action Required 03/25/21 03:00 Temperature Temperature Source Pulse Rate Pulse Rate [Apical] 80 Respiratory Rate 20 Respiratory Effort / Characteristics Non-Labored Spontaneous Respiratory Depth Normal Respiratory Pattern Blood Pressure Blood Pressure [Right Arm] 94/72 L Blood Pressure Mean Blood Pressure Mean [Right Arm] 79 Pulse Oximetry 95 Oxygen Delivery Method Room Air Sepsis Recent Fever Within 48 Hours Sepsis New/Unexplained Change in Mental Status Sepsis Action Taken by Nursing Laboratory Data Result diagrams: 03/25/21 00:58 03/25/21 00:58 Lab Results 03/25/21 03/25/21 03/25/21 Range/Units 00:58 00:58 00:58 WBC 7.48 (4.8-10.8) K/uL RBC 4.93 (4.2-5.4) M/uL Hgb 13.4 (12.0-16.0) g/dL Hct 42.2 (37-47) % MCV 85.6 (80-100) fL MCH 27.2 (25-34) pg MCHC 31.8 L (32-36) g/dL RDW Std Deviation 57.8 H (36.4-46.3) fL RDW Coeff of Rei 18.7 H (11.5-14.5) % Plt Count 249 (130-400) K/uL MPV 12.2 H (7.4-10.4) fL Immature Gran % (Auto) 0.3 % Neut % (Auto) 76.2 % Lymph % (Auto) 15.8 % [place] % (Auto) 7.2 % Eos % (Auto) 0.4 % Baso % (Auto) 0.1 % Neut # (Auto) 5.70 (1.4-6.5) K/uL Lymph # (Auto) 1.18 L (1.2-3.4) K/uL [place] # (Auto) 0.54 (0.11-0.59) K/uL Eos # (Auto) 0.03 (0-0.5) K/uL Baso # (Auto) 0.01 (0-0.2) K/uL Immature Gran # (Auto) 0.02 (0.00-0.02) K/uL Absolute Nucleated RBC 0.06 H (0-0) K/uL Nucleated RBC % (auto) 0.8 % PT 15.8 H (9.0-12.0) Seconds INR 1.6 H (0.9-1.1) APTT 39.8 H (21.0-31.0) Seconds PTT Ratio 1.5 Sodium (136-145) mmol/L Potassium (3.5-5.1) mmol/L Chloride (98-107) mmol/L Carbon Dioxide (21-32) mmol/L Anion Gap (3-11) BUN (6-23) mg/dl Creatinine (0.6-1.2) mg/dl Est Cr Clr Drug Dosing ml/min Est GFR ( Amer) ml/min Est GFR (Non-Af Amer) ml/min BUN/Creatinine Ratio (10-20) Glucose (70-99(Fasting)) mg/dl Calcium (8.5-10.1) mg/dl Total Bilirubin (0.2-1.0) mg/dl AST (13-39) U/L ALT (7-52) U/L Alkaline Phosphatase (34-104) U/L Troponin I (0-0.04) ng/ml B-Natriuretic Peptide > 4700 H (0-100) pg/ml Total Protein (6.0-8.3) gm/dl Albumin (3.4-5.0) gm/dl Globulin (2.5-4.0) gm/dl Albumin/Globulin Ratio (0.9-2) Lipase (11-82) U/L SARS-CoV-2 (PCR) (Negative) Influenza Type A (PCR) (Neg) Influenza Type B (PCR) (Neg) RSV (RT-PCR) (Neg) 03/25/21 03/25/21 Range/Units 00:58 03:00 WBC (4.8-10.8) K/uL RBC (4.2-5.4) M/uL Hgb (12.0-16.0) g/dL Hct (37-47) % MCV (80-100) fL MCH (25-34) pg MCHC (32-36) g/dL RDW Std Deviation (36.4-46.3) fL RDW Coeff of Rei (11.5-14.5) % Plt Count (130-400) K/uL MPV (7.4-10.4) fL Immature Gran % (Auto) % Neut % (Auto) % Lymph % (Auto) % [place] % (Auto) % Eos % (Auto) % Baso % (Auto) % Neut # (Auto) (1.4-6.5) K/uL Lymph # (Auto) (1.2-3.4) K/uL [place] # (Auto) (0.11-0.59) K/uL Eos # (Auto) (0-0.5) K/uL Baso # (Auto) (0-0.2) K/uL Immature Gran # (Auto) (0.00-0.02) K/uL Absolute Nucleated RBC (0-0) K/uL Nucleated RBC % (auto) % PT (9.0-12.0) Seconds INR (0.9-1.1) APTT (21.0-31.0) Seconds PTT Ratio Sodium 132 L (136-145) mmol/L Potassium 3.3 L (3.5-5.1) mmol/L Chloride 100 (98-107) mmol/L Carbon Dioxide 18 L (21-32) mmol/L Anion Gap 14 H (3-11) BUN 60 H (6-23) mg/dl Creatinine 1.74 H (0.6-1.2) mg/dl Est Cr Clr Drug Dosing 35.5 ml/min Est GFR ( Amer) 35.5 ml/min Est GFR (Non-Af Amer) 30.7 ml/min BUN/Creatinine Ratio 34.5 H (10-20) Glucose 103 H (70-99(Fasting)) mg/dl Calcium 8.4 L (8.5-10.1) mg/dl Total Bilirubin 2.8 H (0.2-1.0) mg/dl AST 42 H (13-39) U/L ALT 25 (7-52) U/L Alkaline Phosphatase 128 H (34-104) U/L Troponin I 0.04 (0-0.04) ng/ml B-Natriuretic Peptide (0-100) pg/ml Total Protein 5.6 L (6.0-8.3) gm/dl Albumin 3.2 L (3.4-5.0) gm/dl Globulin 2.4 L (2.5-4.0) gm/dl Albumin/Globulin Ratio 1.3 (0.9-2) Lipase 30 (11-82) U/L SARS-CoV-2 (PCR) NEGATIVE (Negative) Influenza Type A (PCR) Negative (Neg) Influenza Type B (PCR) Negative (Neg) RSV (RT-PCR) Negative (Neg) Administered Medications Discontinued Medications Aspirin (Aspirin Chew 324 Mg) Confirm Administered Dose 324 mg .ROUTE .STK-MED ONE Stop: 03/25/21 00:29 Last Admin: 03/25/21 02:53 Dose: Not Given Documented by: [id number] Furosemide (Furosemide 40 Mg/4 Ml Vial) 40 mg IV ONE ONE Stop: 03/25/21 00:22 Last Admin: 03/25/21 00:47 Dose: 40 mg Documented by: [id number] Ioversol (Optiray 320 100ml) 94 ml IV ONCE ONE Stop: 03/25/21 02:31 Last Admin: 03/25/21 02:31 Dose: 94 ml Documented by: [id number] Discharge Plan Visit Data Chief Complaint: Chest Pain Stated Complaint: CHEST PAIN ED Provider: Allen Jay Discharge Problem: Anasarca, MATTHEW (acute kidney injury), Pneumonia Forms Stand Alone Forms: [facility] Prescriptions Prescriptions: No Action lorazepam [Ativan] 1 mg tablet 1 mg PO TID PRN (Reason: Anxiety) RF: 0 valacyclovir [Valtrex] 1 gram Tablet 1,000 mg PO QAM RF: 0 sertraline [Zoloft] 100 mg Tablet 200 mg PO QAM RF: 0 prednisone 20 mg tablet 40 mg PO DIRECTED RF: 0 furosemide 80 mg tablet 80 mg PO BID RF: 0 Eliquis 5 mg tablet 5 mg PO BID RF: 0 calcium carbonate-vitamin D3 [Calcium 600 + D(3)] 600 mg-5 mcg (200 unit) Tablet 1 tab PO DAILY RF: 0 omeprazole 20 mg capsule,delayed release(DR/EC) 20 mg PO DAILY RF: 0 metoprolol succinate 25 mg tablet extended release 24 hr 37.5 mg PO DAILY RF: 0 atovaquone 750 mg/5 mL suspension 1,500 mg PO DAILY RF: 0 spironolactone 50 mg tablet 50 mg PO DAILY RF: 0 Referrals Referrals: Alex Fink DO [Primary Care Provider] - Discharge Problem: Pneumonia Qualifiers: Pneumonia type: due to unspecified organism Laterality: right Lung location: lower lobe of lung Qualified Code(s): J18.9 - Pneumonia, unspecified organism
[2021-03-25] MEDS ORDERED: ASPIRIN CHEW 324 MG ONE (00:28)
[2021-03-25 01:07] LABS: Basophils # (auto) 0.01 K/uL (0-0.2); Basophils % (auto) 0.1 %; Eosinophils # (auto) 0.03 K/uL (0-0.5); Eosinophils % (auto) 0.4 %; Hematocrit (blood only) 42.2 % (37-47); Hemoglobin 13.4 g/dL (12.0-16.0); Immature Granulocytes # (auto) 0.02 K/uL (0.00-0.02); Immature Granulocytes % (auto) 0.3 %; Lymphocytes # (auto) 1.18 K/uL (1.2-3.4); Lymphocytes % (auto) 15.8 %; Mean Corpuscular Hemoglobin 27.2 pg (25-34); Mean Corpuscular Hgb Conc 31.8 g/dL (32-36); Mean Corpuscular Volume 85.6 fL (80-100); Mean Platelet Volume 12.2 fL (7.4-10.4); Monocytes # (auto) 0.54 K/uL (0.11-0.59); Monocytes % (auto) 7.2 %; Neutrophils % (auto) 76.2 %; Nucleated RBC # (auto) 0.06 K/uL (0-0); Nucleated RBC % (auto) 0.8 %; Platelet Count 249 K/uL (130-400); RDW Coefficient of Variation 18.7 % (11.5-14.5); RDW Standard Deviation 57.8 fL (36.4-46.3); Red Blood Count 4.93 M/uL (4.2-5.4); White Blood Count 7.48 K/uL (4.8-10.8)
[2021-03-25 01:19] LABS: INR 1.6 (0.9-1.1); Partial Thromboplastin Ratio 1.5; Partial Thromboplastin Time 39.8 Seconds (21.0-31.0); Prothrombin Time 15.8 Seconds (9.0-12.0)
[2021-03-25 01:40] LABS: Troponin I 0.04 ng/ml (0-0.04)
[2021-03-25 01:43] LABS: Albumin Globulin Ratio 1.3 (0.9-2); Albumin Level 3.2 gm/dl (3.4-5.0); BUN Creatinine Ratio 34.5 (10-20); Bilirubin,Total 2.8 mg/dl (0.2-1.0); Calcium 8.4 mg/dl (8.5-10.1); Creatinine Clr Calc Pharmacy 35.5 ml/min; Est GFR (African American) 35.5 ml/min; Est GFR (Non-African American) 30.7 ml/min; Globulin 2.4 gm/dl (2.5-4.0); Potassium 3.3 mmol/L (3.5-5.1); Total Protein 5.6 gm/dl (6.0-8.3)
[2021-03-25] MEDS ORDERED: OPTIRAY 320 100ml IV ONE (02:30)
[2021-03-25] MEDS ORDERED: AZITHROMYCIN 500 MG in DEXTROSE 5% 250 ML IV STA (03:48)
[2021-03-25] MEDS ORDERED: cefTRIAXone SODIUM 1,000 MG/50 ML BAG IV STA (03:48)
[2021-03-25 03:49] LABS: Influenza A virus by PCR Negative (Neg); Influenza B virus by PCR Negative (Neg); RSV by PCR Negative (Neg); SARS CoV2 RNA(COVID-19) InHosp NEGATIVE (Negative)
[2021-03-25] MEDS ORDERED: POTASSIUM CHLORIDE CRTAB 20 MEQ TABCR PO STA (04:01)
[2021-03-25] MEDS ORDERED: ALBUMIN 25% 100 mL 25 GM/100 ML VIAL IV ONE ×2 (04:02→07:00)
--- NOTE | 2021-03-25 05:27 | History & Physical Report ---
Date of Service March 25, 2021 Assessment & Plan (1) Decompensated heart failure: Plan: Cardiorenal syndrome Predominantly right-sided heart failure symptoms Underlying pulmonary hypertension hx chronic systolic heart failure secondary to nonischemic cardiomyopathy (EF < 20%, TTE 2020) status post ICD secondary to cardiac sarcoidosis on atovaquone and prednisone regimen Cardiorenal syndrome likely precipitated by kidney hypoperfusion following recent resumption of diuretics outpatient and patient inability to take Midodrine for her baseline low blood pressure due to financial constraints. Valvular heart disease (moderate MR, severe TR on recent TTE) PAF, paced rhythm on Eliquis Chronic anemia, hemoglobin better than baseline Hypokalemia secondary to diuretic Rx Steroid induced hyperglycemia rule out DM PCU Diuretic Rx with albumin given borderline BP Initiate midodrine Strict I/Os, daily weights, CHF education, continue fluid restriction Resume Midodrine until alternative affordable agent found to support patient's blood pressure. Cardiology consult Re: Decompensated heart failure Baseline UA Nephrology consult Re: Cardiorenal syndrome Replace electrolytes Check hemoglobin A1c DVT prophylaxis. [employer] Full code Text document was generated using [employer] voice recognition software. It may contain grammatical or spelling errors. Kindly contact undersigned for clarification of any documentation item in question. History of Present Illness Chief Complaint: Chest pressure, shortness of breath, weight gain, fluid retention Primary Care Provider: Alex Fink DO History obtained from patient and records. 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 Last confinement [facility] January 2021 for decompensated heart failure. No pericardial effusion on TTE. Cardiac PET showed anterolateral myocardial inflammation consistent with sarcoidosis. Patient started on prednisone and atovaquone regimen. Improved fatigue and edema symptoms. 3 weeks ago, patient instructed to resume furosemide and spironolactone Rx by [facility] clinic. Patient has been unable to comply with midodrine Rx due to financial constraints during the preceding months. 3 days ago, patient noted chest heaviness with shortness of breath worse on exertion. Increasing bilateral leg swelling and abdominal distention. Weight gain of 15 pounds in 2 days as per patient. No cough symptoms as per patient. Patient compliant with cardiac medications (except midodrine) and fluid restriction. At the ER, patient received IV Lasix and Ceftriaxone. Medical Historyas above Surgical History : ICD, bunion surgery, sinus surgery, PERFECTO, oophorectomy Family History : DM, heart disease Personal/Social history : Non-smoker, no EtOH intake, disabled Allergies Allergy/AdvReac Type Severity Reaction Status Date / Time Sulfa (Sulfonamide Allergy Intermediate HIVES Verified 03/25/21 00:48 Antibiotics) Home Medications Medication Instructions Recorded Confirmed Type lorazepam 1 mg tablet (Ativan) 1 mg PO TID PRN 02/25/20 03/25/21 History sertraline 100 mg tablet (Zoloft) 200 mg PO QAM 05/07/20 03/25/21 History valacyclovir 1 gram tablet 1,000 mg PO QAM 05/07/20 03/25/21 History (Valtrex) apixaban 5 mg tablet (Eliquis) 5 mg PO BID 03/25/21 03/25/21 History atovaquone 750 mg/5 mL oral 1,500 mg PO DAILY 03/25/21 03/25/21 History suspension calcium carbonate 600 mg-vitamin 1 tab PO DAILY 03/25/21 03/25/21 History D3 5 mcg (200 unit) tablet (Calcium 600 + D(3)) furosemide 80 mg tablet 80 mg PO BID 03/25/21 03/25/21 History metoprolol succinate 25 mg 37.5 mg PO DAILY 03/25/21 03/25/21 History tablet,extended release 24 hr omeprazole 20 mg capsule,delayed 20 mg PO DAILY 03/25/21 03/25/21 History release prednisone 20 mg tablet 40 mg PO DIRECTED 03/25/21 03/25/21 History spironolactone 50 mg tablet 50 mg PO DAILY 03/25/21 03/25/21 History Past Med/Surg History Medical History Anxiety Bipolar 1 disorder 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 If EF remains <35% despite optimal medical therapy then would recommend ICD Migraine Palpitations Surgical History History of ankle surgery History of bunionectomy History of cholecystectomy History of surgery on left wrist History of total abdominal hysterectomy and bilateral salpingo-oophorectomy Family History Father CHF (congestive heart failure) Other Diabetes Social History Smoking Status: Never smoker Hx Alcohol Use: No Hx Substance Use: Yes Preferred Language: Greenlandic Communication Ability: Effective Clinical Allergist Required: No Beliefs That Will Affect Care: None marital status: Single Current Living Situation: Alone Current Living Situation Comment: self and guinea pig current occupation: retired Feels Safe at Home: Yes Assistive Devices: None Review of Systems 2 Review of Systems: As per HPI, all 10 systems reviewed, all other ROS negative Physical Exam Physical Exam: GENERAL: Slightly anxious, no respiratory distress SKIN: Pallor , warm HEENT: Bespectacled, pale palpebral conjunctivae, no ptosis, moist buccal mucosa NECK : Supple, no tenderness CHEST : Decreased breath sounds, no tenderness HEART : diminished S1-S2, systolic murmur over precordium ABDOMEN: distention, nontender EXTREMITIES : Bilateral LE swelling, no LE tenderness, no other conspicuous deformities noted NEUROLOGIC : Coherent, no facial asymmetry, no other gross focality Results & Data Results & Data ([facility]) Vital Signs (Past 12 Hours) Vital Signs Temp Pulse Pulse Resp BP BP Pulse Ox 03/25/21 05:22 80 20 94/62 L 97 03/25/21 03:00 80 20 94/72 L 95 03/25/21 01:30 80 22 95/67 L 95 03/25/21 00:21 93 03/25/21 00:20 36.4 C L 86 18 97/65 L 93 Laboratory Results Laboratory Results WBC 7.48 K/uL (4.8-10.8) 03/25/21 00:58 RBC 4.93 M/uL (4.2-5.4) 03/25/21 00:58 Hgb 13.4 g/dL (12.0-16.0) 03/25/21 00:58 Hct 42.2 % (37-47) 03/25/21 00:58 MCV 85.6 fL (80-100) 03/25/21 00:58 MCH 27.2 pg (25-34) 03/25/21 00:58 MCHC 31.8 g/dL (32-36) L 03/25/21 00:58 RDW Std Deviation 57.8 fL (36.4-46.3) H 03/25/21 00:58 RDW Coeff of Rei 18.7 % (11.5-14.5) H 03/25/21 00:58 Plt Count 249 K/uL (130-400) 03/25/21 00:58 MPV 12.2 fL (7.4-10.4) H 03/25/21 00:58 Immature Gran % (Auto) 0.3 % 03/25/21 00:58 Neut % (Auto) 76.2 % 03/25/21 00:58 Lymph % (Auto) 15.8 % 03/25/21 00:58 [place] % (Auto) 7.2 % 03/25/21 00:58 Eos % (Auto) 0.4 % 03/25/21 00:58 Baso % (Auto) 0.1 % 03/25/21 00:58 Neut # (Auto) 5.70 K/uL (1.4-6.5) 03/25/21 00:58 Lymph # (Auto) 1.18 K/uL (1.2-3.4) L 03/25/21 00:58 [place] # (Auto) 0.54 K/uL (0.11-0.59) 03/25/21 00:58 Eos # (Auto) 0.03 K/uL (0-0.5) 03/25/21 00:58 Baso # (Auto) 0.01 K/uL (0-0.2) 03/25/21 00:58 Immature Gran # (Auto) 0.02 K/uL (0.00-0.02) 03/25/21 00:58 Absolute Nucleated RBC 0.06 K/uL (0-0) H 03/25/21 00:58 Nucleated RBC % (auto) 0.8 % 03/25/21 00:58 PT 15.8 Seconds (9.0-12.0) H 03/25/21 00:58 INR 1.6 (0.9-1.1) H 03/25/21 00:58 APTT 39.8 Seconds (21.0-31.0) H 03/25/21 00:58 PTT Ratio 1.5 03/25/21 00:58 Sodium 132 mmol/L (136-145) L 03/25/21 00:58 Potassium 3.3 mmol/L (3.5-5.1) L 03/25/21 00:58 Chloride 100 mmol/L (98-107) 03/25/21 00:58 Carbon Dioxide 18 mmol/L (21-32) L 03/25/21 00:58 Anion Gap 14 (3-11) H 03/25/21 00:58 BUN 60 mg/dl (6-23) H 03/25/21 00:58 Creatinine 1.74 mg/dl (0.6-1.2) H 03/25/21 00:58 Est Cr Clr Drug Dosing 35.5 ml/min 03/25/21 00:58 Est GFR ( Amer) 35.5 ml/min 03/25/21 00:58 Est GFR (Non-Af Amer) 30.7 ml/min 03/25/21 00:58 BUN/Creatinine Ratio 34.5 (10-20) H 03/25/21 00:58 Glucose 103 mg/dl (70-99(Fasting)) H 03/25/21 00:58 Calcium 8.4 mg/dl (8.5-10.1) L 03/25/21 00:58 Total Bilirubin 2.8 mg/dl (0.2-1.0) H 03/25/21 00:58 AST 42 U/L (13-39) H 03/25/21 00:58 ALT 25 U/L (7-52) 03/25/21 00:58 Alkaline Phosphatase 128 U/L (34-104) H 03/25/21 00:58 Troponin I 0.04 ng/ml (0-0.04) 03/25/21 00:58 B-Natriuretic Peptide > 4700 pg/ml (0-100) H 03/25/21 00:58 Total Protein 5.6 gm/dl (6.0-8.3) L 03/25/21 00:58 Albumin 3.2 gm/dl (3.4-5.0) L 03/25/21 00:58 Globulin 2.4 gm/dl (2.5-4.0) L 03/25/21 00:58 Albumin/Globulin Ratio 1.3 (0.9-2) 03/25/21 00:58 Lipase 30 U/L (11-82) 03/25/21 00:58 SARS-CoV-2 (PCR) NEGATIVE (Negative) 03/25/21 03:00 Influenza Type A (PCR) Negative (Neg) 03/25/21 03:00 Influenza Type B (PCR) Negative (Neg) 03/25/21 03:00 RSV (RT-PCR) Negative (Neg) 03/25/21 03:00 Diagnostic Findings Chest x-ray as per my interpretation : cardiomegaly CT abdomen pelvis initial read: Marked cardiomegaly, increased in size fromthe previous examination 08/12/2020with reflux of contrast into the intrahepatic IVC and hepatic veins fromthe right atrium. The liver is slightlymore prominent fromthe previous examwith irregular contours. Findings suggest venous congestion. Similar presumed incidental hepatic cysts. No biliarydilatation. Cholecystectomy. Layering right pleural effusion noted posteriorly, measuring approximately2 cm. Subsegmental changes at the right lung base laterallyand posteriorlymayrepresent compressive atelectasis or right basilar infection. Subcutaneous edema throughout the soft tissues of the abdomen and pelvis is newfromthe examination 08/12/2020. Favor positive fluid status/anasarca over cellulitis. No hernia or loculated collection. The pancreas, spleen, adrenal glands and kidneys are unremarkable. No bowel obstruction or definite focal bowel mucosal abnormality. No pneumoperitoneum. Mild dependent free fluid in the pelvis is presumed related to positive fluid status. No loculation. Hysterectomy. The bladder is unremarkable. EKG as per my interpretation : Rate 80, paced rhythm
[2021-03-25] MEDS ORDERED: dexAMETHasone 4 MG in SYRINGE 0 ML IV ONE (05:52)
[2021-03-25 05:55] LABS: Thyroid Stimulating Hormone 9.489 uIu/ml (0.300-4.500)
[2021-03-25] MEDS ORDERED: DEXAMETHASONE SOD INJ 4 MG/ML VIAL IV ONE (06:00)
[2021-03-25 06:06] LABS: Appearance Urine Clear (Clear); Bacteria Urine Automated Negative (Negative); Bilirubin Urine Negative (Negative); Blood Urine Negative (Negative); Color Urine Yellow; Glucose Urine UA Negative (Negative); Ketones Urine Negative (Negative); Leukocyte Esterase Urine Negative (Negative); Nitrite Urine Negative (Negative); Protein Urine 1+ (Negative); RBC Urine Automated 0-4 /hpf (0-4); Specific Gravity Urine 1.019 (1.000-1.030); Urobilinogen Urine Negative (Negative)
[2021-03-25] MEDS ORDERED: ACETAMINOPHEN 325 MG TAB PO PRN (06:12)
[2021-03-25] MEDS ORDERED: PROMETHAZINE HCL 12.5 MG in SODIUM CHLORIDE 0.9% 50 ML IV PRN (06:12)
[2021-03-25] MEDS ORDERED: traMADol HCL 50 MG TABLET PO PRN (06:12)
[2021-03-25] MEDS ORDERED: NITROGLYCERIN SL 0.4 MG/TAB TAB SL PRN (06:12)
[2021-03-25] MEDS ORDERED: LORazepam 1 MG TAB PO PRN (06:20)
[2021-03-25] MEDS ORDERED: MIDODRINE HCL 2.5 MG TAB PO ONE (06:45)
[2021-03-25 06:51] LABS: Calcium Oxalate Crystals Urine Present (None Prsent); Mucus Urine Present (None Prsent)
--- NOTE | 2021-03-25 07:23 | CT Scan Report ---
CT SCAN OF THE ABDOMEN AND PELVIS WITH IV CONTRAST CLINICAL HISTORY: Nausea. Elevated bilirubin. COMPARISON STUDY: Abdominal CT dated 08/12/2020. TECHNIQUE: Following the IV administration of 94 cc of Optiray 320, CT scan of the abdomen and pelvi s is performed from the lung bases to the proximal femora. Images are reviewed in the axial, sagittal , and coronal planes. IV contrast was administered without complication. A dose lowering technique wa s utilized adhering to the principles of ALARA. CT DOSE: 911.83 mGy.cm FINDINGS: Lung bases: The heart is enlarged and without pericardial effusion. Pacemaker leads are noted. There are small right and trace left pleural effusions with dependent atelectasis. Airspace consolidation i s seen at the anterior right lung base. Liver: The contrast-enhanced liver is top normal in size and heterogeneous in attenuation. There is n o intrahepatic biliary ductal dilatation. The hepatic veins and portal veins are patent. There is eng orgement of the hepatic veins and IVC. Scattered hepatic cysts measuring up to 1.6 cm cyst are unchan ged. Gallbladder: Surgically absent noting clips in the gallbladder fossa. Spleen: Normal in size and attenuation. Pancreas: Atrophic and grossly unremarkable. Adrenal glands: The adrenal glands appear hyperemic. Kidneys: The contrast enhanced kidneys are atrophic and without hydronephrosis. The kidneys enhance s ymmetrically. A circumaortic left renal vein is incidentally noted. Abdominal vasculature: The abdominal aorta is normal in course and caliber noting mild atheroscleroti c calcification. Bowel: There is no bowel obstruction. The appendix is normal as visualized. Peritoneum: No intraperitoneal free air is identified. There is a small volume of pelvic ascites. Lymphadenopathy: None. Pelvic viscera: The bladder is normal as visualized. The uterus is surgically absent. No adnexal lesi on is seen. Skeletal structures: The skeletal structures are osteopenic. There is mild lumbosacral spondylosis. N o lytic or blastic lesions are seen. Soft tissues: There is body wall edema. IMPRESSION: 1. Marked cardiomegaly. 2. Small right and trace left pleural effusions. 3. Airspace consolidation is seen at the anterior right lung base. This could represent an infectious /inflammatory pneumonitis or possibly pulmonary infarct. Clinical correlation will be essential. 4. Body wall edema and a small volume of pelvic ascites indicate fluid overload. 5. The adrenal glands appear hyperemic. This is nonspecific antrum is seen with hypotension. Clinical correlation will be required. 6. The liver is top normal in size and heterogeneous in attenuation. Additionally, there is engorgeme nt of the hepatic veins and IVC. Correlate clinically for evidence of congestive hepatopathy. 7. Additional findings as above. ACT 112: Negative or not required by law. Electronically signed by: Lisandro Hopper M.D. 03/25/2021 7:22 AM
[2021-03-25 07:32] LABS: T4 Free Thyroxine 0.99 ng/dl (0.61-1.60)
--- NOTE | 2021-03-25 07:33 | XRay Report ---
SINGLE VIEW CHEST CLINICAL HISTORY: Atypical chest pain. FINDINGS: An AP, portable, upright chest radiograph is compared to study dated 09/19/2020. A 3-lead ca rdiac AICD is unchanged in position. The heart is enlarged noting atherosclerotic calcification of th e thoracic aorta. Enlargement of the central pulmonary arteries suggests pulmonary artery hypertensio n. The pulmonary vasculature is noncongested. Atelectasis is noted at the left lung base. Suspect tra ce pleural effusions. No pneumothorax is seen. The skeletal structures are osteopenic. The bony thora x is grossly intact. IMPRESSION: 1. Cardiomegaly and AICD with no radiographic evidence of congestive failure. 2. Suspect trace pleural effusions. 3. Atelectasis at the left lung base is unchanged. ACT 112: Negative or not required by law. Electronically signed by: Lisandro Hopper M.D. 03/25/2021 7:31 AM
--- NOTE | 2021-03-25 08:35 | Cardiology Consultation ---
Date of Consultation March 25, 2021 Assessment & Plan (1) Chronic systolic heart failure: (2) Anasarca: NICM. Acute on chronic decompensated systolic heart failure. Right sided heart failure symptoms. ?Genetic variant causing the cardiomyopathy. Recent history of cardiac tamponade s/p She underwent pericardiocentesis on 09/19/20. Following closely with Dr. Gary Styles at [facility]. 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 Patient remains extremely hypervolemic, anasarca noted on exam. Blood pressures stable. Treating with IV diuretics and albumin. Echo showing worsening LVEF <15%. -Continue aggressive diuresis with lasix 80 mg BID. -Appreciate nephrology input. (3) MATTHEW (acute kidney injury): Increase in sCr. Currently 1.74 (baseline 1.2-1.4). Decrease in albumin- possibly dilutional. Blood pressures normally running 90-100 sbp- uses midodrine at home. (4) Afib: Hx of PAF. Currently SR on monitor- remain on Eliquis Supervising Physician Co-Signing Physician Notes Patient seen and examined at bedside. Admitted with 72-hour history of progressive dyspnea, edema, and weight gain. No recent medication changes or dietary indiscretions. Limiting fluid intake in the outpatient setting to 1.5 L daily. Chronic 2-3 pillow orthopnea unchanged. Denies paroxysmal nocturnal dyspnea. Notes chest pressure which has improved post treatment with IV diuretic therapy. Received 94cc of IV contrast for CT 03/25/20. PE: VSS with borderline resting hypotension. General: NAD, awake alert and oriented x3. Heart: Regular, normal S1-S2. No murmur appreciated. Lungs: Diminished breath sounds at the bases, no rales, rhonchi, wheeze. Abdomen: Soft nontender, normal bowel sounds. Extremities: 2-3+ pretibial edema, 1+ presacral edema. A/P: Agree with above AP history, physical exam, assessment and plan. Etiology of patient's nonischemic cardiomyopathy somewhat unclear, however, may be genetically mediated per discussion with heart failure specialist at [facility]. Patient admitted with acute decompensated heart failure with primarily right- sided signs/symptoms. More than 15 pound weight gain noted. Serum creatinine elevated suggesting cardiorenal syndrome. Treated with intravenous diuretic therapy, furosemide 80 mg intravenously x1 now followed by 80 mg twice daily. If urine output does not significantly increase, will consider initiation of intravenous Lasix infusion. At this time the plan will be to monitor patient's clinical status, urine output, and renal function over the next 24 hours. Consider addition of milrinone pending clinical course. If she does not improve clinically we will arrange for transfer to tertiary care facility to consider advanced heart failure therapies. History of Present Illness Reason for Consultation: Decompensated HFrEF/Right sided heart failure Requesting Physician: Darren hospitalist Attending Physician: Mynor Basurto MD History of Present Illness Medically complex 65 year old with history of of NICM, who was hospitalized from 09/19/20 to 09/24/20 for cardiac tamponade and acute heart failure. She underwent pericardiocentesis on 09/19/20 with 570cc of serosanguineous fluid removed. Of note, her LVEF was 52% as per TTE on 05/05/18, but had decreased to <20% by 01/23/20. 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 Follows with Dr. Lopez in [place] but primarily Dr. Gary Styles at [facility]. Was last evaluated 01/14/2021. Presented to ED with complaints of worsening shortness of breath, chest heaviness, and increased BLLE edema. Per patient- weight gain of 15 lbs in 2-3 days. Denies any dietary indiscretions. Patient treated with IV lasix + albumin given, along with ceftriaxone in ED. CT abd/pelvis showed marked cardiomegaly, small R and L pleural effusions, pelvic ascites with congestive hepatopathy. Echo done showing worsening LVEF of <15%, severe hypokinesis to akinesis. RV moderately dilated with reduced systolic function. Mod to severe MR. Dilated IVC with reduced collapsibility- elevated RA pressure of 15 mmhg. elevated LV filling pressures. Today the patient has ongoing shortness of breath and edema. Edema extends up to the abdomen/presacral area. Did note an improvement with urination/output with the IV lasix. Ongoing shortness of breath and orthopnea. Chest heaviness improved. No palpitations, lightheadedness, or dizziness. NA 132, K 3.3, sCr 1.74 (baseline 1.2-1.4), BUN 60, lactate 2.9, BNP >47,000, TSH 9.489, Free T4 0.99, Troponin 0.04, covid negative Weight: 81.8 kg I&O: -300mL Tele: SR 80s Problem List: 1. NICM diagnosed fall 2019 further declined to <20%; but in retrospect it was 40-44% back in 2010 and most likely that low since then (? Echo 05/2018 was falsely elevated from PVCs) 2. PVCs, hx of amio use 3. Chronic heart failure with reduced EF, NYHA Class III 4. RV failure 5. IVCD (QRS 120ms), S/p BiV-ICD by Dr. Gerard 05/07/2020 6. CKD stage III 7. Normal Coronary anatomy per cath 09/2020 8. Severe TR 9. Moderate MR 11. PAF, on eliquis 12. Chronic anemia, baseline hbg 11 13. Hx of cardiac tamponade, s/p pericardicentesis, 09/2020 Allergies Allergy/AdvReac Type Severity Reaction Status Date / Time Sulfa (Sulfonamide Allergy Intermediate HIVES Verified 03/25/21 00:48 Antibiotics) Home Medications Medication Instructions Recorded Confirmed Type lorazepam 1 mg tablet (Ativan) 1 mg PO TID PRN 02/25/20 03/25/21 History sertraline 100 mg tablet (Zoloft) 200 mg PO QAM 05/07/20 03/25/21 History valacyclovir 1 gram tablet 1,000 mg PO QAM 05/07/20 03/25/21 History (Valtrex) apixaban 5 mg tablet (Eliquis) 5 mg PO BID 03/25/21 03/25/21 History atovaquone 750 mg/5 mL oral 1,500 mg PO DAILY 03/25/21 03/25/21 History suspension calcium carbonate 600 mg-vitamin 1 tab PO DAILY 03/25/21 03/25/21 History D3 5 mcg (200 unit) tablet (Calcium 600 + D(3)) furosemide 80 mg tablet 80 mg PO BID 03/25/21 03/25/21 History metoprolol succinate 25 mg 37.5 mg PO DAILY 03/25/21 03/25/21 History tablet,extended release 24 hr omeprazole 20 mg capsule,delayed 20 mg PO DAILY 03/25/21 03/25/21 History release prednisone 20 mg tablet 40 mg PO DIRECTED 03/25/21 03/25/21 History spironolactone 50 mg tablet 50 mg PO DAILY 03/25/21 03/25/21 History Patient History Medical History Anxiety Bipolar 1 disorder Cardiac sarcoidosis CKD (chronic kidney disease) stage 3, GFR 30-59 ml/min 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 A+Ox3. HEENT: Normocephalic. Atraumatic. Conjunctiva and sclera clear. NECK: No carotid bruits. +JVD. Carotid upstrokes are brisk. Heart: RRR. S1 and S2 noted without murmur, rubs, gallops. Lungs: Diminished lung sounds, rales in BL bases. No wheezing Abdomen: Normal bowel sounds. Soft. Nontender. No masses or organomegaly. No abdominal bruits. Extremities: +anasarca, +2 pitting edema of BLLE, + pitting presacral edema. No clubbing or cyanosis. Pulses: radial=2/4, posterior tibial=2/4, dorsalis pedis = 2/4. NEURO: No focal deficits. PSYCH: Normal. Results & Data ([facility]) Vital Signs (Past 12 Hours) Vital Signs Temp Pulse Pulse Resp BP BP Pulse Ox 03/25/21 06:11 80 19 104/74 97 03/25/21 06:00 80 20 92/68 L 98 03/25/21 05:22 80 20 94/62 L 97 03/25/21 04:30 80 16 94/66 L 95 03/25/21 03:00 80 20 94/72 L 95 03/25/21 01:30 80 22 95/67 L 95 03/25/21 00:21 93 03/25/21 00:20 36.4 C L 86 18 97/65 L 93 Diagnostic Findings Echo 03/25/2020 LV severely dilated LVEF <15% global thinning of LV bhatti spetal motion dyskinetic, otherwise hypokinesis to akinesis RV mod dilated with mod reduced systolic function Mod to severe MR Moderate TR Elevated RA pressure 15 mmhg Elevated LV filling pressures Abdomen/Pelvis CT 03/25/2020 1. Marked cardiomegaly. 2. Small right and trace left pleural effusions. 3. Airspace consolidation is seen at the anterior right lung base. This could represent an infectious/inflammatory pneumonitis or possibly pulmonary infarct. Clinical correlation will be essential. 4. Body wall edema and a small volume of pelvic ascites indicate fluid overload. 5. The adrenal glands appear hyperemic. This is nonspecific antrum is seen with hypotension. Clinical correlation will be required. 6. The liver is top normal in size and heterogeneous in attenuation. Additionally, there is engorgement of the hepatic veins and IVC. Correlate clinically for evidence of congestive hepatopathy. CXR 03/25/2020 1. Cardiomegaly and AICD with no radiographic evidence of congestive failure. 2. Suspect trace pleural effusions. 3. Atelectasis at the left lung base is unchanged. Echo 01/16/2021 The examination is adequate to evaluate the referral indication. The qualitative LV ejection fraction is <20% (severely reduced). The left ventricular cavity size is severely enlarged. Moderate secondary mitral regurgitation is present. Severe tricuspid regurgitation is present. The right ventricular systolic function is moderately reduced . Elevated left ventricular filling pressures by increased E/e` ratio (>15). Dilated IVC with reduced collapsability with sniff indicates an elevated right atrial pressure of 15mmHg. No pericardial effusion is noted. A moderate left plerual effusion is present. RHC 01/16/2021 * Right Heart Catheterization: RA = 9 mmHg, RV = 27/2 mmHg, PA = 30/10 (21) mmHg, PW = 13 mmHg, CO (Antonio) = 2.6 L/min, CI = 1.42 L/min/m2; CO (TD) = 3.28 L/min, CI = 1.79 L/min/m2, TPG = 8 mmHg * PA sat 37%, AO sat 98% on RA RHC/LHC (09/23/20) * The coronary arteries are angiographically normal. * The right atrial pressures measured were normal. * The pulmonary wedge pressure was normal. * Right Heart Catheterization: RA = mmHg; RV = 29/2 mmHg; PA = 33/11 (20) mmHg; PW = 7 mmHg; CO (Antonio) = 6.26 L/min, CI = 3.51 L/min/m2; CO (TD) = 5.02 L/min, CI = 2.81 L/min/m2; PVR = 2.8 lock units. Saturations: Arterial 95% and PA 64% TTE (09/20/20) The findings are consistent with dilated cardiomyopathy. The left ventricular systolic function is severely reduced. The qualitative LV ejection fraction is <20% (severely reduced). There is a small circumferential pericardial effusion with some areas of slightly larger fluid collection. There is diffuse right ventricular hypokinesis. The right ventricular systolic function is moderately reduced . Mild mitral regurgitation is present. Moderate tricuspid regurgitation is present. The estimated pulmonary artery systolic pressure is 42mm Hg. Dilated IVC with reduced collapsability with sniff indicates an elevated right atrial pressure of 15 mmHg.
[2021-03-25] MEDS: APIXABAN 5 MG TABLET PO SCH ×2 (10:25→20:36)
[2021-03-25] MEDS: CALCIUM 600MG + VIT D 400 IU TAB PO SCH (10:25)
[2021-03-25] MEDS: ATOVAQUONE 750 MG/5 ML UDC PO SCH (10:25)
[2021-03-25] MEDS: SERTRALINE HCL 100 MG TABLET PO SCH (10:26)
[2021-03-25] MEDS: PANTOprazole 40 MG TAB PO SCH (10:26)
[2021-03-25] MEDS: MIDODRINE HCL 10 MG TAB PO SCH ×3 (10:27→18:40)
[2021-03-25] MEDS: valACYclovir HCL 500 MG TABLET PO SCH (10:27)
[2021-03-25 10:49] LABS: BUN Creatinine Ratio 37.5 (10-20); Calcium 8.3 mg/dl (8.5-10.1); Creatinine Clr Calc Pharmacy 40.7 ml/min; Est GFR (African American) 41.9 ml/min; Est GFR (Non-African American) 36.1 ml/min; Potassium 3.6 mmol/L (3.5-5.1)
[2021-03-25 11:08] LABS: Troponin I 0.05 ng/ml (0-0.04)
--- NOTE | 2021-03-25 12:12 | Nephrology Consultation ---
Date of Consultation March 25, 2021 Assessment & Plan (1) CKD (chronic kidney disease) stage 3, GFR 30-59 ml/min: suspect her ckd may be progressing as her cardiac meds/dxs change: suspect her new baseline when appropriately diuresed will be mid ones. MATTHEW still on differential though and she is certainly at risk for worsening creatinine after receiving IV contrast in setting of diuretics. She also has cardiorenal syndrome. her blood pressures are at BASELINE and asymptomatic; no further albumin needed >>>recommend lower PM dose of IV lasix to 20 mg IV d/t risk of MATTHEW after IV con trast w/ intensified diuretics; would then hold further lasix pending labs tomorrow AM and look to start more frequent pulse dosing >if issues overnight recommend 40 mg IV bolus lasix -needs strict I/0 -gave 2 x 20 mEq po K today -daily bmp -would not resume spironolactone at this time -recommend daily STANDING weight -ordered <2 gm daily Na diet; agree w/ 1.5L FR (2) Cardiac sarcoidosis: (3) Decompensated heart failure: History of Present Illness Reason for Consultation: MATTHEW on CKD Requesting Physician: Dr Baird Attending Physician: Mynor Basurto MD History of Present Illness 65 y/o F whom I'm asked to see for MATTHEW on CKD was admitted overnight for decompensated systolic/ R sided heart failure. PMH includes NICM EF <20% s/p ICD, RV failure, cardiac sarcoidosis on chronic prednisone/atovoquone, CKD 3 w/ baseline creatinine 1.2-1.3, paroxysmal Afib on eliquis; hx of cardiac tamponade s/p pericardiocentesis 09/2020, anxiety. Chronic hypotension w/ SBP in 80s numerous times in OP clinic since September 2020. Cardiac sarcoid was dx'd during [facility] [place] 01[place]2021 and started on meds above at that time. Creat ran in mid ones through that admission. At baseline though pre and x 1 post admission more in 1.2-1.3 range. She was d/c on lasix 80 mg po daily; this was upped to lasix 80 mg bid and spironolactone 25 mg daily on 02/05, when creatinine 1.2. Then spironolactone upped to 50 mg daily 02/20. Last OP labs are 1.2. She presented with 15 lb wt gain in 2-3 days in the setting of chest heaviness, worsening LE edema and abdominal distension and exertional dyspnea. Feels these sx are improved somwehat but still significant. she is currently receiving 80 mg lasix iv bid. She had CT abd/pelvis w/ IV contrast to evaluate nausea and elevated bilirubin. Allergies Allergy/AdvReac Type Severity Reaction Status Date / Time Sulfa (Sulfonamide Allergy Intermediate HIVES Verified 03/25/21 00:48 Antibiotics) Home Medications Medication Instructions Recorded Confirmed Type lorazepam 1 mg tablet (Ativan) 1 mg PO TID PRN 02/25/20 03/25/21 History sertraline 100 mg tablet (Zoloft) 200 mg PO QAM 05/07/20 03/25/21 History valacyclovir 1 gram tablet 1,000 mg PO QAM 05/07/20 03/25/21 History (Valtrex) apixaban 5 mg tablet (Eliquis) 5 mg PO BID 03/25/21 03/25/21 History atovaquone 750 mg/5 mL oral 1,500 mg PO DAILY 03/25/21 03/25/21 History suspension calcium carbonate 600 mg-vitamin 1 tab PO DAILY 03/25/21 03/25/21 History D3 5 mcg (200 unit) tablet (Calcium 600 + D(3)) furosemide 80 mg tablet 80 mg PO BID 03/25/21 03/25/21 History metoprolol succinate 25 mg 37.5 mg PO DAILY 03/25/21 03/25/21 History tablet,extended release 24 hr omeprazole 20 mg capsule,delayed 20 mg PO DAILY 03/25/21 03/25/21 History release prednisone 20 mg tablet 40 mg PO DIRECTED 03/25/21 03/25/21 History spironolactone 50 mg tablet 50 mg PO DAILY 03/25/21 03/25/21 History Patient History Medical History Anxiety Bipolar 1 disorder Cardiac sarcoidosis CKD (chronic kidney disease) stage 3, GFR 30-59 ml/min Genital HSV on chronic suppressive valtrex Idiopathic cardiomyopathy Continue to optimize cardiomyopathy medications; Recommend out patient cardi ac catheterization and cardiac MRI. 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 Beliefs That Will Affect Care: None marital status: Current Living Situation: Alone Current Living Situation Comment: self and guinea pig current occupation: retired Feels Safe at Home: Yes Assistive Devices: None Review of Systems Review of Systems: All systems reviewed & are unremarkable except as noted in HPI & below Physical Exam Constitutional: well developed, well nourished, + frail appearing and cooperative; no acute distress Eyes: EOM intact bilaterally ENMT: Ears: no external ear abnormality Nose: no external nose abnormality Mouth: + dry oral mucous membranes Neck: no nuchal rigidity Respiratory: normal respiratory effort Auscultation: + diminished lung sounds and + crackles (bibasilar) Cardiovascular: Rate/Rhythm: regular rate and regular rhythm Extremities: + edema (2-3+ edema BLE to hips; 4+ pedal; no overt abdominal wall edema) Gastrointestinal (Abdomen): Inspection/Auscultation: normal bowel sounds Percussion/Palpation: abdomen soft and + fluid wave; abdomen nontender Musculoskeletal: Extremities: strength 5/5 throughout Skin: no rashes, warm and dry Neurologic: chow, fluent speech, no tremor Psychiatric: Orientation: alert and oriented x 3 Affect: + flat affect Results & Data ([facility]) Vital Signs (Past 12 Hours) Vital Signs Temp Pulse Pulse Resp BP BP Pulse Ox 03/25/21 06:11 80 19 104/74 97 03/25/21 06:00 80 20 92/68 L 98 03/25/21 05:22 80 20 94/62 L 97 03/25/21 04:30 80 16 94/66 L 95 03/25/21 03:00 80 20 94/72 L 95 03/25/21 01:30 80 22 95/67 L 95 03/25/21 00:21 93 03/25/21 00:20 36.4 C L 86 18 97/65 L 93 Laboratory Results 03/25/21 00:58 03/25/21 10:16 presentation UA > 1+ protein; 5-10 epis; else bland Diagnostic Findings CT abd/pelvis IV Lung bases: The heart is enlarged and without pericardial effusion. Pacemaker leads are noted. There are small right and trace left pleural effusions with dependent atelectasis. Airspace consolidation is seen at the anterior right lung base. Liver: The contrast-enhanced liver is top normal in size and heterogeneous in attenuation. There is no intrahepatic biliary ductal dilatation. The hepatic veins and portal veins are patent. There is engorgement of the hepatic veins and IVC. Scattered hepatic cysts measuring up to 1.6 cm cyst are unchanged. Gallbladder: Surgically absent noting clips in the gallbladder fossa. Spleen: Normal in size and attenuation. Pancreas: Atrophic and grossly unremarkable. Adrenal glands: The adrenal glands appear hyperemic. Kidneys: The contrast enhanced kidneys are atrophic and without hydronephrosis. The kidneys enhance symmetrically. A circumaortic left renal vein is incidentally noted. Abdominal vasculature: The abdominal aorta is normal in course and caliber noting mild atherosclerotic calcification. Bowel: There is no bowel obstruction. The appendix is normal as visualized. Peritoneum: No intraperitoneal free air is identified. There is a small volume of pelvic ascites. Lymphadenopathy: None. Pelvic viscera: The bladder is normal as visualized. The uterus is surgically absent. No adnexal lesion is seen. Skeletal structures: The skeletal structures are osteopenic. There is mild l umbosacral spondylosis. No lytic or blastic lesions are seen. Soft tissues: There is body wall edema. IMPRESSION: 1. Marked cardiomegaly. 2. Small right and trace left pleural effusions. 3. Airspace consolidation is seen at the anterior right lung base. This could represent an infectious/inflammatory pneumonitis or possibly pulmonary infarct. Clinical correlation will be essential. 4. Body wall edema and a small volume of pelvic ascites indicate fluid overload. 5. The adrenal glands appear hyperemic. This is nonspecific antrum is seen with hypotension. Clinical correlation will be required. 6. The liver is top normal in size and heterogeneous in attenuation. Additionally, there is engorgement of the hepatic veins and IVC. Correlate clinically for evidence of congestive hepatopathy. 7. Additional findings as above. CXR 1. Cardiomegaly and AICD with no radiographic evidence of congestive failure. 2. Suspect trace pleural effusions. 3. Atelectasis at the left lung base is unchanged.
--- NOTE | 2021-03-25 12:26 | Electrocardiogram Report ---
Test Reason : Blood Pressure : / mmHG Vent. Rate : 080 BPM Atrial Rate : 079 BPM P-R Int : 130 ms QRS Dur : 180 ms QT Int : 542 ms P-R-T Axes : 000 011 033 degrees QTc Int : 625 ms AV dual-paced rhythm with occasional ventricular-paced complexes Abnormal ECG When compared with ECG of 19-SEP-2020 11:16, Vent. rate has decreased BY 45 BPM Confirmed by Bandar Brown ([id number]) on 03/25/2021 12:26:31 PM Referred By: REFERRED SELF Confirmed By:Bandar Brown
[2021-03-25] MEDS ORDERED: FUROSEMIDE 40 MG/4 ML VIAL IV SCH (17:00)
[2021-03-25] MEDS ORDERED: ALBUMIN 25% 12.5 GM/50 ML VIAL IV SCH (17:00)
[2021-03-25] MEDS ORDERED: FUROSEMIDE INJ 20 MG/2 ML VIAL IV ONE (17:47)
[2021-03-25] MEDS: POTASSIUM CHLORIDE CRTAB 20 MEQ TABCR PO SCH ×2 (18:40→20:36)
--- NOTE | 2021-03-25 19:03 | Communication Note ---
Date of Service: March 25, 2021 Delayed entry Date of service as above Seen at bedside Patient appears tired, but denies shortness of breath, chest pain, palpitations, dizziness Mild rales at the bases Normal rate regular rhythm Abdomen soft nondistended Mild lower leg edema All labs noted and reviewed Decompensated acute on chronic congestive heart failure Lasix IV Midodrine ordered [employer] Supervisor consulted Mynor Basurto MD
[2021-03-25] MEDS ORDERED: MIDODRINE HCL 2.5 MG TAB PO STA (21:32)
[2021-03-25] MEDS ORDERED: SODIUM CHLORIDE 0.9% 500 ML IV SCH ×2 (21:45→23:30)
[2021-03-26] MEDS ORDERED: STAT IV Infusion **Titration per Protocol STA ×3 (01:11→09:45)
[2021-03-26 01:26] LABS: Basophils # (auto) 0.01 K/uL (0-0.2); Basophils % (auto) 0.1 %; Hematocrit (blood only) 37.7 % (37-47); Hemoglobin 11.8 g/dL (12.0-16.0); Immature Granulocytes # (auto) 0.01 K/uL (0.00-0.02); Immature Granulocytes % (auto) 0.1 %; Lymphocytes # (auto) 0.87 K/uL (1.2-3.4); Lymphocytes % (auto) 12.8 %; Mean Corpuscular Hemoglobin 26.3 pg (25-34); Mean Platelet Volume 12.3 fL (7.4-10.4); Monocytes % (auto) 5.9 %; Neutrophils # (auto) 5.53 K/uL (1.4-6.5); Neutrophils % (auto) 81.1 %; Nucleated RBC # (auto) 0.04 K/uL (0-0); Nucleated RBC % (auto) 0.5 %; Platelet Count 237 K/uL (130-400); RDW Coefficient of Variation 18.7 % (11.5-14.5); RDW Standard Deviation 56.5 fL (36.4-46.3); Red Blood Count 4.49 M/uL (4.2-5.4); White Blood Count 6.82 K/uL (4.8-10.8)
[2021-03-26] MEDS ORDERED: MILRINONE LACTATE/D5W 20,000 MCG/100 ML BAG IV SCH ×3 (01:30→10:15)
[2021-03-26 01:40] LABS: Mean Corpuscular Hgb Conc 31.3 g/dL (32-36)
[2021-03-26 01:46] LABS: Troponin I 0.04 ng/ml (0-0.04)
[2021-03-26 01:51] LABS: BUN Creatinine Ratio 39.3 (10-20); Calcium 8.6 mg/dl (8.5-10.1); Creatinine Clr Calc Pharmacy 41.2 ml/min; Est GFR (African American) 42.5 ml/min; Est GFR (Non-African American) 36.7 ml/min; Potassium 3.7 mmol/L (3.5-5.1)
[2021-03-26] MEDS ORDERED: POTASSIUM CHLORIDE CRTAB 20 MEQ TABCR PO STA (02:05)
--- NOTE | 2021-03-26 02:23 | Critical Care Consultation ---
Date of Consultation March 26, 2021 Assessment & Plan (1) Decompensated heart failure: (2) CKD (chronic kidney disease) stage 3, GFR 30-59 ml/min: Reason Critically Ill: 65-year-old female with nonischemic cardiomyopathy with systolic heart failure and EF 15% presents to the ICU for hypotension secondary to decompensated heart failure, and starting on milrinone drip. Per cardiology, plan for patient to transfer to tertiary center later today. Neuro - Anxiety/mood disordercontinue Zoloft. Lorazepam as needed Cardiac - Acute on chronic systolic heart failuresymptoms are predominantly right-sided heart failure and patient does have underlying pulmonary hypertension. -Echo shows global thinning of left ventricular bhatti which are severely dilated and ejection fraction of less than 15%. Valvular heart disease with moderate MR and severe TR -She is status post AICD -Patient states she stopped taking her midodrine 1 week ago due to cost. This was restarted yesterday -She is currently hypotensive with systolic blood pressure 70s to low 80s, elevated lactate 3.0. Primary team called cardiology recommended milrinone drip and transferred to ICU. -Plan for patient to transfer to tertiary center for advanced heart failure therapies later today. -Continue prednisone, atovaquone for sarcoidosis -She has anasarca and significantly hypervolemic, Lasix being held due to MATTHEW and recent contrast. Will check creatinine this morning and reevaluate diuresis. PAFcontinue Eliquis. Continuous monitor on telemetry Respiratory - No history of pulmonary disease. Currently maintaining oxygen saturation on room air without respiratory distress. Lungs clear to auscultation. Continuous monitoring pulse ox. May benefit from BiPAP and diuresis if decompensates from pulmonary standpoint. GI - Heart healthy diet with 1500 fluid restriction RENAL/LYTES - MATTHEW on CKDBaseline creatinine 1.3, currently improved and 1.5 on last BMP -Nephrology following, appreciate recommendations -Cardiorenal syndrome thought to be contributing -Holding spironolactone -Maintain maps greater than 65 -We will hold on further diuresis overnight for now. Follow-up creatinine in a.m. Patient does have anasarca and is significantly hypervolemic -Monitor routine BMPs and replete electrolytes as indicated - Strict I's and O's Genital HSVcontinue Valtrex ENDO - No history of diabetes. ICU hyperglycemic protocol TSH elevated with normal T4 HEME - H&H stable, monitor routine CBCs ID - No indication for infectious process at this time LINES/IV ACCESS - Peripheral IVs DVT PROPHYLAXIS - SCDs, on Eliquis I have personally spent 40 minutes of critical care time in the direct management of this patient. This is a life/limb threatening event. This includes time spent evaluating patient, direct bedside care, chart review, placing orders, interpretation of diagnostic studies, discussion with consultants, patient, and family members, as well as other required patient management activities. This time is exclusive of all separately billable procedures, and teaching time and separate from and in addition to any other critical care service time. Thank you for allowing us to participate in the care of this patient. Please refer to my attending physician's documentation for any further recommendations. (3) Cardiac sarcoidosis: (4) Afib: (5) Chronic systolic heart failure: (6) Anasarca: (7) MATTHEW (acute kidney injury): (8) Acute hypotension: (9) Anxiety: (10) Bipolar 1 disorder: Supervising Physician Co-Signing Physician Notes I have personally evaluated and examined this patient. I agree with assessment and plan of Jojo CASSIDY. Discussed with cardiology they are working on transfer with [facility] at 0945. Will recheck lactic acidosis at this time History of Present Illness Attending Physician: Mynor Basurto MD History of Present Illness Patient is a 65-year-old female with past medical history of systolic heart failure secondary to nonischemic cardiomyopathy (EF 15%), ICD placement, cardiac sarcoidosis (on prednisone and atovaquone) valvular heart disease (severe TR, moderate MR), pulmonary HTN, PAF on Eliquis, pericardial effusion (paracentesis 09/19/2020), anemia, anxiety/mood disorder. Patient had presented to the emergency department on 03/25 with 3 days of ongoing shortness of breath associated with exertion and chest heaviness. She was also noted to have increased lower extremity edema and abdominal distention. Patient stated that she had gained 15 pounds in 2 days. She had recently stopped taking midodrine over 1 week due to financial cost. Patient was admitted for acute on chronic decompensated systolic heart failure. Echo today showed worsening EF less than 15%. She was undergoing diuresis and had been restarted on midodrine. MATTHEW appeared to be improving. Cardiology consulted and recommended if patient were to decompensate to be transferred to tertiary center for advanced heart failure therapies. This evening the patient became increasingly hypotensive and had elevated lactate of 3.0. Cardiology was consulted by the primary team who recommended placing the the patient on midodrine drip and transferring to ICU. She will likely be transferred to tertiary center today. On exam the patient is alert and oriented and without acute distress. She is maintaining oxygen saturations on room air and appears comfortable. Her systolic blood pressures have been in the high 70s to low 80s but for the most part she is asymptomatic. She denies any dizziness or syncopal episodes. Denies headache, recent fevers or illness, sore throat, cough, chest pain, palpitations, abdominal pain, nausea vomiting or diarrhea. She has generalized edema primarily in the upper and lower extremities bilaterally. Allergies Allergy/AdvReac Type Severity Reaction Status Date / Time Sulfa (Sulfonamide Allergy Intermediate HIVES Verified 03/25/21 00:48 Antibiotics) Home Medications Medication Instructions Recorded Confirmed Type lorazepam 1 mg tablet (Ativan) 1 mg PO TID PRN 02/25/20 03/25/21 History sertraline 100 mg tablet (Zoloft) 200 mg PO QAM 05/07/20 03/25/21 History valacyclovir 1 gram tablet 1,000 mg PO QAM 05/07/20 03/25/21 History (Valtrex) apixaban 5 mg tablet (Eliquis) 5 mg PO BID 03/25/21 03/25/21 History atovaquone 750 mg/5 mL oral 1,500 mg PO DAILY 03/25/21 03/25/21 History suspension calcium carbonate 600 mg-vitamin 1 tab PO DAILY 03/25/21 03/25/21 History D3 5 mcg (200 unit) tablet (Calcium 600 + D(3)) furosemide 80 mg tablet 80 mg PO BID 03/25/21 03/25/21 History metoprolol succinate 25 mg 37.5 mg PO DAILY 03/25/21 03/25/21 History tablet,extended release 24 hr omeprazole 20 mg capsule,delayed 20 mg PO DAILY 03/25/21 03/25/21 History release prednisone 20 mg tablet 40 mg PO DIRECTED 03/25/21 03/25/21 History spironolactone 50 mg tablet 50 mg PO DAILY 03/25/21 03/25/21 History Patient History Medical History Anxiety Bipolar 1 disorder Cardiac sarcoidosis CKD (chronic kidney disease) stage 3, GFR 30-59 ml/min 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 If EF remains <35% despite optimal medical therapy then would recommend ICD Migraine Palpitations Surgical History History of ankle surgery History of bunionectomy History of cholecystectomy History of surgery on left wrist History of total abdominal hysterectomy and bilateral salpingo-oophorectomy Family History Father CHF (congestive heart failure) Other Diabetes Social History Smoking Status: Never smoker Hx Alcohol Use: No Hx Substance Use: No Preferred Language: Serbian Communication Ability: Effective Computer Aided Drafter Required: No Beliefs That Will Affect Care: None marital status: Current Living Situation: Alone Current Living Situation Comment: self and guinea pig current occupation: retired Feels Safe at Home: Yes Assistive Devices: None Review of Systems Review of Systems: All systems reviewed & are unremarkable except as noted in HPI & below Physical Exam Constitutional: WD/WN, vitals as above Eyes: PERRL, conjunctivae normal, anicteric sclerae ENMT: external ear and nose normal, oropharynx normal Neck: trachea midline, no thyromegaly Respiratory: normal respiratory effort, lungs clear to auscultation Cardiovascular: Rate/Rhythm: regular rate and regular rhythm Heart Sounds: normal S1 and normal S2; no murmur Vessels: no JVD Extremities: + edema Gastrointestinal (Abdomen): normal bowel sounds, soft, nontender, no hepatosplenomegaly Neurologic: PERRL, EOMI, accommodation nl, no face palsy, no dysarthria Psychiatric: A+Ox3, euthymic affect Results & Data Results & Data ([facility]) Vital Signs (Past 12 Hours) Vital Signs Temp Pulse Pulse Resp BP BP Pulse Ox 03/26/21 00:02 83/54 L 03/25/21 23:11 36.4 C L 74 18 78/52 L 93 03/25/21 22:53 80 03/25/21 22:20 101/67 03/25/21 21:53 92/61 L 03/25/21 21:32 36.3 C L 83 18 74/59 L 03/25/21 21:05 36.3 C L 03/25/21 19:13 81 18 86/64 L 97 03/25/21 18:16 67 16 100/67 100 03/25/21 16:00 03/25/21 15:12 Pulse Ox 03/26/21 00:02 03/25/21 23:11 03/25/21 22:53 03/25/21 22:20 03/25/21 21:53 03/25/21 21:32 03/25/21 21:05 03/25/21 19:13 03/25/21 18:16 03/25/21 16:00 97 03/25/21 15:12 97 Coding Level of Care Code Critical Care 1st 30-74 mins Diagnoses CKD (chronic kidney disease) stage 3, GFR 30-59 ml/min N18.30 Cardiac sarcoidosis D86.85 Afib I48.91 Chronic systolic heart failure I50.22 Decompensated heart failure I50.9 Anasarca R60.1 MATTHEW (acute kidney injury) N17.9 Acute hypotension I95.9 Anxiety F41.9 Bipolar 1 disorder F31.9
[2021-03-26 03:30] LABS: BUN Creatinine Ratio 36.4 (10-20); Calcium 8.7 mg/dl (8.5-10.1); Creatinine Clr Calc Pharmacy 40.2 ml/min; Est GFR (African American) 41.2 ml/min; Est GFR (Non-African American) 35.5 ml/min; Magnesium 2.1 mg/dl (1.7-2.4); Potassium 3.9 mmol/L (3.5-5.1)
[2021-03-26] MEDS: MIDODRINE HCL 10 MG TAB PO SCH ×3 (07:35→12:18)
[2021-03-26] MEDS: ATOVAQUONE 750 MG/5 ML UDC PO SCH ×2 (07:35→08:20)
[2021-03-26] MEDS: SERTRALINE HCL 100 MG TABLET PO SCH ×2 (07:35→08:19)
[2021-03-26] MEDS: APIXABAN 5 MG TABLET PO SCH ×2 (07:36→08:19)
[2021-03-26] MEDS: valACYclovir HCL 500 MG TABLET PO SCH ×2 (07:36→08:19)
[2021-03-26] MEDS: PANTOprazole 40 MG TAB PO SCH ×2 (07:36→08:19)
[2021-03-26] MEDS: CALCIUM 600MG + VIT D 400 IU TAB PO SCH ×2 (07:36→08:19)
[2021-03-26] MEDS: predniSONE 20 MG TAB PO SCH ×2 (07:36→08:19)
--- NOTE | 2021-03-26 07:55 | Cardiology Progress Note ---
Date of Service March 26, 2021 Assessment & Plan (1) Chronic systolic heart failure: (2) Anasarca: Plan: NICM. Acute on chronic decompensated systolic heart failure. Right sided heart failure symptoms. ?Genetic variant causing the cardiomyopathy. Recent history o f cardiac tamponade s/p She underwent pericardiocentesis on 09/19/20. Following closely with Dr. Gary Styles at [facility]. She underwent upgrade to [employer] on 05/07/20. Patient remains extremely hypervolemic, anasarca noted on exam. Blood pressures stable. Treating with IV diuretics and albumin. Echo showing worsening LVEF <15%. -Continue aggressive diuresis with lasix 80 mg BID. -Appreciate nephrology input. (3) MATTHEW (acute kidney injury): Plan: Increase in sCr. Currently 1.74 (baseline 1.2-1.4). Decrease in albumin- possibly dilutional. Blood pressures normally running 90-100 sbp- uses midodrine at home. (4) Afib: Plan: Hx of PAF. Currently SR on monitor- remain on [facility] Admission and Anticipated Discharge Date Admission Date: March 25, 2021 Subjective Seen by nephrology yesterday- recommended reducing Lasix to 20 mg last evening due to the use of contrast dye. Scr 1.5--> 1.54. Spironolactone on hold. Developed hypotension over night- transferred to ICU, started on milrinone drip. Scr 1.52, 1.50, 1.54 (03/26) Review of Systems Review of Systems: All systems reviewed & are unremarkable except as noted in HPI & below Physical Exam Physical Exam: General: No acute distress. A+Ox3. HEENT: Normocephalic. Atraumatic. Conjunctiva and sclera clear. NECK: No carotid bruits. +JVD. Carotid upstrokes are brisk. Heart: RRR. S1 and S2 noted without murmur, rubs, gallops. Lungs: Diminished lung sounds, rales in BL bases. No wheezing Abdomen: Normal bowel sounds. Soft. Nontender. No masses or organomegaly. No abdominal bruits. Extremities: +anasarca, +2 pitting edema of BLLE, + pitting presacral edema. No clubbing or cyanosis. Pulses: radial=2/4, posterior tibial=2/4, dorsalis pedis = 2/4. NEURO: No focal deficits. PSYCH: Normal. Results & Data ([facility]) Vital Signs (Past 12 Hours) Vital Signs Temp Pulse Pulse Resp BP Pulse Ox 03/26/21 06:30 81 91/59 L 97 03/26/21 05:30 80 24 97/47 L 96 03/26/21 04:45 36.3 C L 80 26 H 92/78 L 90 03/26/21 04:00 80 101/65 97 03/26/21 03:00 80 20 96/72 L 93 03/26/21 02:30 80 20 125/74 96 03/26/21 02:15 80 03/26/21 02:00 36.5 C 80 24 95/68 L 96 03/26/21 00:02 83/54 L 03/25/21 23:11 36.4 C L 74 18 78/52 L 93 03/25/21 22:53 80 03/25/21 22:20 101/67 03/25/21 21:53 92/61 L 03/25/21 21:32 36.3 C L 83 18 74/59 L 03/25/21 21:05 36.3 C L Laboratory Results 03/26/21 03/26/21 03/26/21 Range/Units 03:01 03:01 01:15 WBC (4.8-10.8) K/uL RBC (4.2-5.4) M/uL Hgb (12.0-16.0) g/dL Hct (37-47) % MCV (80-100) fL MCH (25-34) pg MCHC (32-36) g/dL RDW Std Deviation (36.4-46.3) fL RDW Coeff of Rei (11.5-14.5) % Plt Count (130-400) K/uL MPV (7.4-10.4) fL Immature Gran % (Auto) % Neut % (Auto) % Lymph % (Auto) % [place] % (Auto) % Eos % (Auto) % Baso % (Auto) % Neut # (Auto) (1.4-6.5) K/uL Lymph # (Auto) (1.2-3.4) K/uL [place] # (Auto) (0.11-0.59) K/uL Eos # (Auto) (0-0.5) K/uL Baso # (Auto) (0-0.2) K/uL Immature Gran # (Auto) (0.00-0.02) K/uL Absolute Nucleated RBC (0-0) K/uL Nucleated RBC % (auto) % Sodium 135 L (136-145) mmol/L Potassium 3.9 (3.5-5.1) mmol/L Chloride 104 (98-107) mmol/L Carbon Dioxide 21 (21-32) mmol/L Anion Gap 10 (3-11) BUN 56 H (6-23) mg/dl Creatinine 1.54 H (0.6-1.2) mg/dl Est Cr Clr Drug Dosing 40.2 ml/min Est GFR ( Amer) 41.2 ml/min Est GFR (Non-Af Amer) 35.5 ml/min BUN/Creatinine Ratio 36.4 H (10-20) Glucose 117 H (70-99(Fasting)) mg/dl Lactate 2.1 H* 3.0 H* (0.4-2.0) mmol/L Calcium 8.7 (8.5-10.1) mg/dl Magnesium 2.1 (1.7-2.4) mg/dl Troponin I (0-0.04) ng/ml 03/26/21 03/26/21 03/25/21 Range/Units 01:15 01:15 10:16 WBC 6.82 (4.8-10.8) K/uL RBC 4.49 (4.2-5.4) M/uL Hgb 11.8 L (12.0-16.0) g/dL Hct 37.7 (37-47) % MCV 84.0 (80-100) fL MCH 26.3 (25-34) pg MCHC 31.3 L (32-36) g/dL RDW Std Deviation 56.5 H (36.4-46.3) fL RDW Coeff of Rei 18.7 H (11.5-14.5) % Plt Count 237 (130-400) K/uL MPV 12.3 H (7.4-10.4) fL Immature Gran % (Auto) 0.1 % Neut % (Auto) 81.1 % Lymph % (Auto) 12.8 % [place] % (Auto) 5.9 % Eos % (Auto) 0.0 % Baso % (Auto) 0.1 % Neut # (Auto) 5.53 (1.4-6.5) K/uL Lymph # (Auto) 0.87 L (1.2-3.4) K/uL [place] # (Auto) 0.40 (0.11-0.59) K/uL Eos # (Auto) 0.00 (0-0.5) K/uL Baso # (Auto) 0.01 (0-0.2) K/uL Immature Gran # (Auto) 0.01 (0.00-0.02) K/uL Absolute Nucleated RBC 0.04 H (0-0) K/uL Nucleated RBC % (auto) 0.5 % Sodium 135 L 135 L (136-145) mmol/L Potassium 3.7 3.6 (3.5-5.1) mmol/L Chloride 104 103 (98-107) mmol/L Carbon Dioxide 19 L 21 (21-32) mmol/L Anion Gap 12 H 11 (3-11) BUN 59 H 57 H (6-23) mg/dl Creatinine 1.50 H 1.52 H (0.6-1.2) mg/dl Est Cr Clr Drug Dosing 41.2 40.7 ml/min Est GFR ( Amer) 42.5 41.9 ml/min Est GFR (Non-Af Amer) 36.7 36.1 ml/min BUN/Creatinine Ratio 39.3 H 37.5 H (10-20) Glucose 108 H 143 H (70-99(Fasting)) mg/dl Lactate (0.4-2.0) mmol/L Calcium 8.6 8.3 L (8.5-10.1) mg/dl Magnesium (1.7-2.4) mg/dl Troponin I 0.04 0.05 H* (0-0.04) ng/ml 03/25/21 Range/Units 10:16 WBC (4.8-10.8) K/uL RBC (4.2-5.4) M/uL Hgb (12.0-16.0) g/dL Hct (37-47) % MCV (80-100) fL MCH (25-34) pg MCHC (32-36) g/dL RDW Std Deviation (36.4-46.3) fL RDW Coeff of Rei (11.5-14.5) % Plt Count (130-400) K/uL MPV (7.4-10.4) fL Immature Gran % (Auto) % Neut % (Auto) % Lymph % (Auto) % [place] % (Auto) % Eos % (Auto) % Baso % (Auto) % Neut # (Auto) (1.4-6.5) K/uL Lymph # (Auto) (1.2-3.4) K/uL [place] # (Auto) (0.11-0.59) K/uL Eos # (Auto) (0-0.5) K/uL Baso # (Auto) (0-0.2) K/uL Immature Gran # (Auto) (0.00-0.02) K/uL Absolute Nucleated RBC (0-0) K/uL Nucleated RBC % (auto) % Sodium (136-145) mmol/L Potassium (3.5-5.1) mmol/L Chloride (98-107) mmol/L Carbon Dioxide (21-32) mmol/L Anion Gap (3-11) BUN (6-23) mg/dl Creatinine (0.6-1.2) mg/dl Est Cr Clr Drug Dosing ml/min Est GFR ( Amer) ml/min Est GFR (Non-Af Amer) ml/min BUN/Creatinine Ratio (10-20) Glucose (70-99(Fasting)) mg/dl Lactate 1.8 (0.4-2.0) mmol/L Calcium (8.5-10.1) mg/dl Magnesium (1.7-2.4) mg/dl Troponin I (0-0.04) ng/ml
--- NOTE | 2021-03-26 07:57 | Nephrology Progress Note ---
Date of Service March 26, 2021 Assessment & Plan (1) Decompensated heart failure: Plan: for transfer later today to [facility]; on milrinone gtt and midodrine; on lasix as tolerated - recommendations below (2) CKD (chronic kidney disease) stage 3, GFR 30-59 ml/min: Plan: suspect her ckd may be progressing as her cardiac status worsens and meds are intensified: for now I consider her new baseline when appropriately diuresed to be mid ones, not 1.3 which occurred only once since December and was drawn when she was not optimized on diuretics for HF. MATTHEW still on differential though.She also has cardiorenal syndrome. >>>>she is at risk for MATTHEW after receiving IV contrast in setting of diuretics on 03/25 midday. we have had to back down on diuresis to try to lower odds of MATTHEW in the wake of IV contrast >>her blood pressures are at BASELINE 80s-90s systolic as an outpatient and historically asymptomatic in this range. She had a L NS overnight and 2 doses IV lasix as well. >>>recommend/ordered IV lasix to 40 mg IV midday d/t risk of MATTHEW after IV contrast w/ intensified diuretics >>recommend/ordered stat BMP 1600 >>if renal function acceptable would give another 40 mg IV lasix 1800 >>by 03/27 midday window of risk for MATTHEW in wake of IV contrast should be past and will be freer to diurese more aggressively one hopes -needs strict I/0 -will give supplemental K 20 mEq po x 1 -would not resume spironolactone at this time -recommend daily STANDING weight -continue <2 gm daily Na diet; agree w/ 1.5L FR Care coordinated with Dr. Lees (3) Cardiac sarcoidosis: Plan: -defer to cardiology but could consider lowering steroid dose which may complicate volume status here Admission and Anticipated Discharge Date Admission Date: March 25, 2021 Subjective moved to ICU overnight after sbp dropped to 70s and started on milrinone gtt; for [facility] transfer later today pending bed availability; also received 20 mg IV lasix last evening 1840, 40 mg MN, 40 mg 0500; additionally had 500 mL NS x 2; albumin ordered for this am as well: 700 mL + so far this am on I/O. The patient feels she is breathing a bit better and that edema has improved somewhat. She declines [facility] Review of Systems Review of Systems: All systems reviewed & are unremarkable except as noted in Subjective Physical Exam Constitutional: well developed, well nourished, + frail appearing and cooperative; no acute distress Eyes: EOM intact bilaterally ENMT: Ears: no external ear abnormality Nose: no external nose abnormality Mouth: + dry oral mucous membranes Neck: no nuchal rigidity Respiratory: normal respiratory effort Auscultation: + diminished lung sounds and + crackles (Right basilar) Cardiovascular: Rate/Rhythm: regular rhythm and + tachycardic Extremities: + edema (2+ edema BLE to hips; 3+ pedal; no overt abdominal wall edema) Gastrointestinal (Abdomen): Inspection/Auscultation: normal bowel sounds Percussion/Palpation: abdomen soft and + fluid wave; abdomen nontender Musculoskeletal: Extremities: strength 5/5 throughout Skin: no rashes, warm and dry Neurologic: Fluent speech, no tremor, moves all extremities Psychiatric: Orientation: alert and oriented x 3 Affect: + flat affect Results & Data ([facility]) Vital Signs (Past 12 Hours) Vital Signs Temp Pulse Pulse Resp BP Pulse Ox 03/26/21 06:30 81 91/59 L 97 03/26/21 05:30 80 24 97/47 L 96 03/26/21 04:45 36.3 C L 80 26 H 92/78 L 90 03/26/21 04:00 80 101/65 97 03/26/21 03:00 80 20 96/72 L 93 03/26/21 02:30 80 20 125/74 96 03/26/21 02:15 80 03/26/21 02:00 36.5 C 80 24 95/68 L 96 03/26/21 00:02 83/54 L 03/25/21 23:11 36.4 C L 74 18 78/52 L 93 03/25/21 22:53 80 03/25/21 22:20 101/67 03/25/21 21:53 92/61 L 03/25/21 21:32 36.3 C L 83 18 74/59 L 03/25/21 21:05 36.3 C L Laboratory Results 03/26/21 01:15 03/26/21 03:01
[2021-03-26] MEDS ORDERED: CONSULT PHARMACY STA (09:45)
--- NOTE | 2021-03-26 10:01 | Cardiology Progress Note ---
Date of Service March 26, 2021 Assessment & Plan (1) Acute on chronic heart failure with reduced ejection fraction and diastolic dysfunction: (2) Idiopathic cardiomyopathy: (3) Acute on chronic renal insufficiency: (4) Elevated serum lactate dehydrogenase: Plan: Patient blood pressure and core body temperature have EYES: Pupils round equal and react to light, extraocular movements full, no injection. This a.m. Appears mildly improved clinically, however, serum lactate remains elevated. Creatinine unchanged per labs at 3 AM. Recommend addition of milrinone to improve cardiac output. Case discussed at length with heart failure specialist in [facility]. Recommend transfer to tertiary care center to consider advanced heart failure therapies. Telemetry demonstrating AV paced rhythm at 80 bpm. History of frequent ventricular ectopy. I have a low threshold to add intravenous amiodarone if patient experience increased ventricular ectopy or nonsustained ventricular tachycardia with addition of milrinone. Admission and Anticipated Discharge Date Admission Date: March 25, 2021 Subjective Patient seen examined the bedside. Hypotension and hypothermia reported overnight. Patient transferred to the intensive care unit with plans to initiate milrinone intravenously, however, due to improvement of systolic blood pressure medication was not started. States she is feeling better this morning. Edema improved. Lactate elevated. Serum creatinine unchanged per lab studies at approximately 3 AM. Orthopnea unchanged. Denies dyspnea at rest. No sustained dysrhythmias on telemetry. Review of Systems Review of Systems: All systems reviewed & are unremarkable except as noted in Subjective Physical Exam Constitutional: well developed and well nourished; no acute distress Respiratory: normal respiratory effort; no respiratory distress, no labored breathing and no retractions Auscultation: no crackles, no rales, no rhonchi and no wheezes Cardiovascular: Rate/Rhythm: regular rate and regular rhythm Heart Sounds: normal S1 and normal S2; no murmur Vessels: + JVD and radial pulses present; no carotid bruit Extremities: + edema (2+ bilateral pretibial edema, 1+ presacral edema) Gastrointestinal (Abdomen): Inspection/Auscultation: abdomen normal to inspection and normal bowel sounds; abdomen not distended Percussion/Palpation: abdomen soft; abdomen nontender, no guarding and abdomen not rigid Neurologic: CN's II-XI intact bilaterally and moves all extremities; no focal motor deficits Psychiatric: A+Ox3, euthymic affect Results & Data ([facility]) Vital Signs (Past 12 Hours) Vital Signs Temp Pulse Pulse Resp BP Pulse Ox Pulse Ox 03/26/21 08:17 36.3 C L 03/26/21 08:01 80 03/26/21 08:00 97 03/26/21 07:00 36.5 C 80 20 89/68 L 98 03/26/21 06:30 81 91/59 L 97 03/26/21 05:30 80 24 97/47 L 96 03/26/21 04:45 36.3 C L 80 26 H 92/78 L 90 03/26/21 04:00 80 101/65 97 03/26/21 03:00 80 20 96/72 L 93 03/26/21 02:30 80 20 125/74 96 03/26/21 02:15 80 03/26/21 02:00 36.5 C 80 24 95/68 L 96 03/26/21 00:02 83/54 L 03/25/21 23:11 36.4 C L 74 18 78/52 L 93 03/25/21 22:53 80 03/25/21 22:20 101/67
[2021-03-26] MEDS ORDERED: FUROSEMIDE 40 MG/4 ML VIAL IV ONE (12:05)
--- NOTE | 2021-03-26 17:03 | Hospitalist Progress Note ---
Date of Service March 26, 2021 Assessment & Plan (1) Decompensated heart failure: Plan: Cardiorenal syndrome Predominantly right-sided heart failure symptoms Underlying pulmonary hypertension hx chronic systolic heart failure secondary to nonischemic cardiomyopathy (EF < 20%, TTE 2020) status post ICD secondary to cardiac sarcoidosis on atovaquone and prednisone regimen -Milrinone IV started due to hypotension Cardiology recommended transfer to [facility] under the care of heart failure specialist Cardiorenal syndrome likely precipitated by kidney hypoperfusion following recent resumption of diuretics outpatient and patient inability to take Midodrine for her baseline low blood pressure due to financial constraints. Creatinine 1.5 Valvular heart disease (moderate MR, severe TR on recent TTE) PAF, paced rhythm on Eliquis Chronic anemia -Hemoglobin 11.8 Admission and Anticipated Discharge Date Admission Date: March 25, 2021 Subjective Follow-up for decompensated CHF, etc. Events overnight noted Milrinone IV in progress Patient seen resting in bed States she is tired and weak, but no shortness of breath, chest pain, palpitations, dizziness No nausea, vomiting Awaiting transfer to [facility] Review of Systems Review of Systems: all noted and negative except for above Physical Exam Physical Exam: General- oriented x 3, not in distress, speaks in sentences with no effort or accessory muscle use Eyes- anicteric Neck- no JVD Lungs-mild rales at the bases, no wheezing Heart- normal rate, regular rhythm; no murmurs Abdomen- normal bowel sounds, nondistended, soft, nontender Extremities- no pretibial edema, no calf tenderness Neuro- alert, oriented x 3; no gross focal neurologic deficits Skin- warm & dry Results & Data Results & Data ([facility]) Vital Signs (Past 12 Hours) Vital Signs Temp Pulse Pulse Resp BP BP Pulse Ox 03/26/21 14:30 82 24 98 03/26/21 14:15 80 23 99/66 L 96 03/26/21 14:00 80 16 95/75 L 96 03/26/21 13:45 87 19 99/75 L 96 03/26/21 13:30 87 21 97 03/26/21 13:15 96 H 20 99/77 L 97 03/26/21 13:02 98 H 25 H 93/71 L 96 03/26/21 13:00 98 H 27 H 97 03/26/21 12:45 91 H 24 92 03/26/21 12:36 82 24 98/62 L 96 03/26/21 12:34 81 22 59/24 L 96 03/26/21 12:30 82 24 96 03/26/21 12:16 81 17 91/56 L 94 03/26/21 12:15 80 19 92 03/26/21 12:01 95 H 26 H 91/74 L 92 03/26/21 12:00 91 H 21 94 03/26/21 11:52 94 H 24 94 03/26/21 11:45 95 H 25 H 98 03/26/21 11:30 36.4 C L 98 H 24 97 03/26/21 11:28 99 H 20 72/60 L 97 03/26/21 11:01 83 23 92/55 L 95 03/26/21 11:00 79 20 97 03/26/21 10:31 79 31 H 88/71 L 96 03/26/21 10:30 80 26 H 96 03/26/21 10:29 80 26 H 97 03/26/21 10:22 80 30 H 96 03/26/21 10:00 80 22 97 03/26/21 09:31 79 21 92/66 L 98 03/26/21 09:30 79 33 H 96 03/26/21 09:03 80 21 92/66 L 98 03/26/21 09:00 87 28 H 97 03/26/21 08:48 80 30 H 95/66 L 98 03/26/21 08:30 79 26 H 97 03/26/21 08:17 36.3 C L 03/26/21 08:01 80 22 83/51 L 98 03/26/21 08:00 80 26 H 97 03/26/21 07:30 79 30 H 96 03/26/21 07:05 81 23 89/68 L 99 03/26/21 07:00 36.5 C 80 80 17 89/68 L 99 03/26/21 06:30 81 91/59 L 97 03/26/21 05:30 80 24 97/47 L 96 Pulse Ox 03/26/21 14:30 03/26/21 14:15 03/26/21 14:00 03/26/21 13:45 03/26/21 13:30 03/26/21 13:15 03/26/21 13:02 03/26/21 13:00 03/26/21 12:45 03/26/21 12:36 03/26/21 12:34 03/26/21 12:30 03/26/21 12:16 03/26/21 12:15 03/26/21 12:01 03/26/21 12:00 03/26/21 11:52 03/26/21 11:45 03/26/21 11:30 03/26/21 11:28 03/26/21 11:01 03/26/21 11:00 03/26/21 10:31 03/26/21 10:30 03/26/21 10:29 03/26/21 10:22 03/26/21 10:00 03/26/21 09:31 03/26/21 09:30 03/26/21 09:03 03/26/21 09:00 03/26/21 08:48 03/26/21 08:30 03/26/21 08:17 03/26/21 08:01 03/26/21 08:00 97 03/26/21 07:30 03/26/21 07:05 03/26/21 07:00 03/26/21 06:30 03/26/21 05:30 all noted and reviewed including below
--- NOTE | 2021-03-27 06:21 | Electrocardiogram Report ---
Test Reason : Blood Pressure : / mmHG Vent. Rate : 079 BPM Atrial Rate : 050 BPM P-R Int : 138 ms QRS Dur : 172 ms QT Int : 498 ms P-R-T Axes : 088 -86 050 degrees QTc Int : 571 ms AV dual-paced rhythm with occasional ventricular-paced complexes Abnormal ECG When compared with ECG of 25-MAR-2021 00:48, No significant change was found Confirmed by Bandar Brown ([id number]) on 03/27/2021 6:20:48 AM Referred By: REFERRED SELF Confirmed By:Bandar Brown
--- NOTE | 2021-03-30 18:30 | Discharge Summary ---
Date of Service March 30, 2021 Admission HPI Per Admitting Provider History obtained from patient and records. 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 Last confinement [facility] January 2021 for decompensated heart failure. No pericardial effusion on TTE. Cardiac PET showed anterolateral myocardial inflammation consistent with sarcoidosis. Patient started on prednisone and atovaquone regimen. Improved fatigue and edema symptoms. 3 weeks ago, patient instructed to resume furosemide and spironolactone Rx by [facility]. Patient has been unable to comply with midodrine Rx due to financial constraints during the preceding months. 3 days ago, patient noted chest heaviness with shortness of breath worse on exertion. Increasing bilateral leg swelling and abdominal distention. Weight gain of 15 pounds in 2 days as per patient. No cough symptoms as per patient. Patient compliant with cardiac medications (except midodrine) and fluid restriction. At the ER, patient received IV Lasix and Ceftriaxone. Medical Historyas above Surgical History : ICD, bunion surgery, sinus surgery, PERFECTO, oophorectomy Family History : DM, heart disease Personal/Social history : Non-smoker, no EtOH intake, disabled Admission Exam (Per Admitting) Constitutional GENERAL: Slightly anxious, no respiratory distress SKIN: Pallor , warm HEENT: Bespectacled, pale palpebral conjunctivae, no ptosis, moist buccal mucosa NECK : Supple, no tenderness CHEST : Decreased breath sounds, no tenderness HEART : diminished S1-S2, systolic murmur over precordium ABDOMEN: distention, nontender EXTREMITIES : Bilateral LE swelling, no LE tenderness, no other conspicuous deformities noted NEUROLOGIC : Coherent, no facial asymmetry, no other gross focality Discharge Data Consultations 03/25/21 05:51 ED Decision to Admit Stat 03/25/21 06:12 Consult Cardiology Routine Consult Nephrology Routine 03/26/21 02:30 Consult Lumber Driver Routine 03/26/21 14:06 Burn CD for patient Stat Hospital Course (1) Decompensated heart failure: Cardiorenal syndrome Predominantly right-sided heart failure symptoms Underlying pulmonary hypertension hx chronic systolic heart failure secondary to nonischemic cardiomyopathy (EF < 20%, TTE 2020) status post ICD secondary to cardiac sarcoidosis on atovaquone and prednisone regimen -Milrinone IV started due to hypotension Cardiology recommended transfer to [facility] under the care of heart failure specialist Cardiorenal syndrome likely precipitated by kidney hypoperfusion following recent resumption of diuretics outpatient and patient inability to take Midodrine for her baseline low blood pressure due to financial constraints. Creatinine 1.5 Valvular heart disease (moderate MR, severe TR on recent TTE) PAF, paced rhythm on Eliquis Chronic anemia -Hemoglobin 11.8
== END 2021-03-26 15:15 | disposition short-term general hospital (02) | DRG 292 ==
LOC: ED 00:15 → EDINP 05:31 → 2S 05:59 → 1E 03-26 02:15